=== PATIENT | female | born 1955 | race Caucasian/White ===

== ENCOUNTER 2018-12-28 10:56 | Emergency (ER) | payer MEDICAID, OTHER ==
[~2018-12-28] VITALS: Ht 170.2 cm; Wt 60.8 kg
[2018-12-28] MEDS ORDERED: NS IV 500 ML 500 ML IV SCH (11:15)
[2018-12-28 11:20] LABS: BILIRUBIN,URINE NEGATIVE (NEGATIVE); CLARITY,URINE CLEAR; COLOR,URINE YELLOW; GLUCOSE, URINE (UA) NEGATIVE (NEGATIVE); KETONES,URINE NEGATIVE (NEGATIVE); LEUKOCYTE ESTERASE ,URINE 3+ (NEGATIVE); NITRITE,URINE NEGATIVE (NEGATIVE); PH,URINE 5 (5-9); PROTEIN,URINE 2+ (NEGATIVE); UROBILINOGEN,URINE 1 MG/DL (NORMAL)
--- NOTE | 2018-12-28 11:28 | ED General ---
General Stated Complaint: FEET SWELLING;WEAKNESS;RECENT CHEMO;PAIN ALL OVER Source of Information: Patient, Family (daughter) Exam Limitations: No Limitations History of Present Illness Date Seen by Provider: Dec 28, 2018 Time Seen by Provider: 11:10 Initial Comments 63-year-old female who presents to the emergency room with complaints of bilateral feet swelling, weakness, malaise, generalized pain all over. She reports that this is been going on for the past month and a half after her chemotherapy administration. She is receiving chemotherapy for lung cancer. She reports that she is looking to establish care with [facility] but was instructed to come to the emergency room for evaluation. She is from [place] and this is where her her oncologist is. She has recently relocated to the [place] area is looking for primary care. She is alert and oriented on arrival to the emergency room. Timing/Duration: Other (2 months) Associated Systoms: Malaise, Weakness Allergies and Home Medications Allergies Coded Allergies: codeine (Unverified Adverse Reaction, Mild, n/v, 11/14/11) morphine (Unverified Adverse Reaction, Mild, n/v, 11/14/11) Home Medications Gabapentin 300 Mg Capsule, 300 MG PO BID Prescribed by: CHRISTOPHER CULLEN on 12/28/18 1331 Nitrofurantoin Monohyd/M-Cryst 100 Mg Capsule, 1 TAB PO BID Prescribed by: CHRISTOPHER CULLEN on 12/28/18 1317 Potassium Chloride 10 Meq Tablet.er, 10 MEQ PO DAILY Prescribed by: CHRISTOPHER CULLEN on 12/28/18 1331 Patient Home Medication List Home Medication List Reviewed: Yes Review of Systems Review of Systems Constitutional: see HPI; No chills, No fever; malaise, weakness Genitourinary: no symptoms reported Musculoskeletal: see HPI, muscle weakness All Other Systems Reviewed Negative Unless Noted: Yes Past Prnbdyy-Whpfsy-Hbkalm Hx Past Med/Social Hx: Reviewed Nursing Past Med/Soc Hx Family Medical History Reviewed Nursing Family Hx Physical Exam Vital Signs Vital Signs - First Documented 12/28/18 11:05 Temp 97.6 Pulse 105 Resp 29 B/P (MAP) 126/80 (95) Pulse Ox 96 O2 Delivery Room Air Capillary Refill : Height, Weight, BMI Height: '" Weight: lbs. oz. kg; BMI Method:Stated General Appearance: No Apparent Distress, WD/WN HEENT: PERRL/EOMI, TMs Normal, Normal ENT Inspection, Pharynx Normal Neck: Full Range of Motion, Normal Inspection, Non Tender, Supple Respiratory: Chest Non Tender, Lungs Clear, Normal Breath Sounds, No Accessory Muscle Use, No Respiratory Distress Cardiovascular: Regular Rate, Rhythm, No Edema, No Gallop, No JVD, No Murmur, Normal Peripheral Pulses Gastrointestinal: Normal Bowel Sounds, No Organomegaly, No Pulsatile Mass, Non Tender, Soft Extremity: Normal Capillary Refill Neurologic/Psychiatric: Alert, Oriented x3, Normal Mood/Affect Skin: Normal Color, Warm/Dry Progress/Results/Core Measures Suspected Sepsis SIRS Temperature: Pulse: Respiratory Rate: Laboratory Tests 12/28/18 11:24: White Blood Count 4.9 Blood Pressure / Mean: Laboratory Tests 12/28/18 11:24: Creatinine 0.73, Platelet Count 281, Total Bilirubin 0.4 Results/Orders Lab Results My Orders Medications Given in ED Vital Signs/I&O Capillary Refill : Departure Impression Primary Impression: Lung cancer Additional Impression: UTI (urinary tract infection) Disposition: 01 HOME, SELF-CARE Condition: Stable/Unchanged Departure-Patient Inst. Decision time for Depature: 12:38 Referrals: NO,LOCAL PHYSICIAN (PCP/Family) Primary Care Physician Patient Instructions: LOCAL PHYSICIAN LIST, Lung Cancer (DC), Urinary Tract Infections in Adults Add. Discharge Instructions: Take medications as directed. Follow-up with your primary care provider within 1 week for recheck. Keep your appointment that was scheduled with the cancer center. Return back to the emergency room for worsening symptoms or concerns as needed. Scripts Potassium Chloride (Potassium Chloride) 10 Meq Tablet.er 10 MEQ PO DAILY for 7 Days, #14 TAB Prov: CHRISTOPHER CULLEN 12/28/18 Gabapentin (Gabapentin) 300 Mg Capsule 300 MG PO BID for 7 Days, #14 CAP Prov: CHRISTOPHER CULLEN 12/28/18 Nitrofurantoin Monohyd/M-Cryst (Macrobid 100 mg Capsule) 100 Mg Capsule 1 TAB PO BID for 7 Days, #14 CAP Prov: CHRISTOPHER CULLEN 12/28/18 CHRISTOPHER CULLEN Dec 28, 2018 11:28
[2018-12-28 11:34] LABS: BASOPHILS % (AUTO) 0 % (0-10); EOSINOPHILS # (AUTO) 0.1 10^3/uL (0.0-0.3); EOSINOPHILS % (AUTO) 3 % (0-10); HEMATOCRIT 33 % (35-52); HEMOGLOBIN 11.3 G/DL (11.5-16.0); LYMPHOCYTES # (AUTO) 1.9 X 10^3 (1.0-4.0); LYMPHOCYTES % (AUTO) 40 % (12-44); MEAN CORPUSCULAR HEMOGLOBIN 30 PG (25-34); MEAN CORPUSCULAR HGB CONC 34 G/DL (32-36); MEAN CORPUSCULAR VOLUME 89 FL (80-99); MEAN PLATELET VOLUME 8.5 FL (7.4-10.4); MONOCYTES # (AUTO) 0.7 X 10^3 (0.0-1.0); MONOCYTES % (AUTO) 15 % (0-12); NEUTROPHILS # (AUTO) 2.1 X 10^3 (1.8-7.8); NEUTROPHILS % (AUTO) 43 % (42-75); PLATELET COUNT 281 10^3/uL (130-400); RED CELL DISTRIBUTION WIDTH 14.5 % (10.0-14.5); WHITE BLOOD COUNT 4.9 10^3/uL (4.3-11.0)
[2018-12-28 11:46] LABS: BACTERIA,URINE FEW /HPF; RBC,URINE 0-2 /HPF; SQUAMOUS EPITHELIAL CELL,UR >50 /HPF; YEAST,URINE FEW /HPF
[2018-12-28 11:54] LABS: ALANINE AMINOTRANSFERASE 15 U/L (0-55); ALBUMIN 3.3 GM/DL (3.2-4.5); ALKALINE PHOSPHATASE 117 U/L (40-136); AMYLASE 58 U/L (25-125); BILIRUBIN,TOTAL 0.4 MG/DL (0.1-1.0); BUN/CREATININE RATIO 7; CALCIUM 9.5 MG/DL (8.5-10.1); CARBON DIOXIDE 25 MMOL/L (21-32); CHLORIDE 96 MMOL/L (98-107); CREATININE SERUM 0.73 MG/DL (0.60-1.30); GFR ESTIMATED > 60; GLUCOSE 157 MG/DL (70-105); LIPASE 34 U/L (8-78); POTASSIUM 3.1 MMOL/L (3.6-5.0); SODIUM 131 MMOL/L (135-145); TOTAL PROTEIN 6.9 GM/DL (6.4-8.2)
[2018-12-28] MEDS ORDERED: OXYC1TAB16 (11:56)
[2018-12-28] MEDS ORDERED: GABA-486 (11:56)
[2018-12-28] MEDS ORDERED: PROM12.59 (11:56)
--- NOTE | 2018-12-28 12:11 | Diagnostic Imaging Report ---
INDICATION: Weakness and difficulty eating. Lung cancer. FINDINGS: Heart size is normal. There is a 6 cm mass in the posterior aspect of left lower lobe. There is no pleural effusion or pneumothorax. Mediastinum is unremarkable. Tvucob-O-Exix catheter overlies right hemithorax and has its tip in the superior vena cava. IMPRESSION: 6 cm mass in the left lower lobe. Air-trapping compatible with COPD. Dictated by: Dictated on workstation # [id number]
[2018-12-28] MEDS ORDERED: NS IV 1000 ML 1,000 ML IV SCH (12:15)
[2018-12-28] MEDS ORDERED: KCL 20 MEQ TAB (K-DUR) PO ONE (12:15)
[2018-12-28] MEDS ORDERED: NITR-65 PO (13:17)
[2018-12-28] MEDS ORDERED: POTA10TA10 PO (13:31)
[2018-12-28] MEDS ORDERED: GABA-488 PO (13:31)
[2018-12-28 13:52] VITALS: BP 123/78
== END 2018-12-28 13:52 | disposition home or self-care (01) ==
LOC: EDUNIT# 10:56 → ER 10:57
DX: C34.90 Malignant neoplasm of unspecified part of unspecified bronchus or lung (principal); N39.0 Urinary tract infection, site not specified; Z88.5 Allergy status to narcotic agent
CPT/HCPCS: 36415; 71046; 80053; 81000; 82150; 83690; 83880; 85025; 87077; 87088; 87186; 96360; 96361

== ENCOUNTER 2019-01-01 14:05 | Inpatient (IN) | payer OTHER ==
[~2019-01-01] VITALS: Ht 170.2 cm; Wt 63.6 kg
[~2019-01-01 14:05] MED LIST: GABA-486; GABA-488 PO; NITR-65 PO; OXYC1TAB16; POTA10TA10 PO; PROM12.59
[2019-01-01 14:45] LABS: BASOPHILS % (AUTO) 0 % (0-10); EOSINOPHILS # (AUTO) 0.1 10^3/uL (0.0-0.3); EOSINOPHILS % (AUTO) 2 % (0-10); HEMATOCRIT 27 % (35-52); HEMOGLOBIN 9.2 G/DL (11.5-16.0); LYMPHOCYTES # (AUTO) 1.7 X 10^3 (1.0-4.0); LYMPHOCYTES % (AUTO) 28 % (12-44); MEAN CORPUSCULAR HEMOGLOBIN 30 PG (25-34); MEAN CORPUSCULAR HGB CONC 34 G/DL (32-36); MEAN CORPUSCULAR VOLUME 87 FL (80-99); MEAN PLATELET VOLUME 8.4 FL (7.4-10.4); MONOCYTES # (AUTO) 0.9 X 10^3 (0.0-1.0); MONOCYTES % (AUTO) 15 % (0-12); NEUTROPHILS # (AUTO) 3.4 X 10^3 (1.8-7.8); NEUTROPHILS % (AUTO) 55 % (42-75); PLATELET COUNT 251 10^3/uL (130-400); RED CELL DISTRIBUTION WIDTH 14.4 % (10.0-14.5); WHITE BLOOD COUNT 6.1 10^3/uL (4.3-11.0)
[2019-01-01] MEDS ORDERED: NS IV 1000 ML 1,000 ML IV ONE (15:00)
[2019-01-01] MEDS ORDERED: ACETAMINOPHEN 325 MG TABLET PO ONE (15:00)
[2019-01-01] MEDS ORDERED: fentaNYL INJECTION 100 MCG/2 ML AMP IVP ONE (15:00)
[2019-01-01 15:15] LABS: INR 1.1 (0.8-1.4)
[2019-01-01 15:16] LABS: ALANINE AMINOTRANSFERASE 8 U/L (0-55); ALBUMIN 2.7 GM/DL (3.2-4.5); ALKALINE PHOSPHATASE 80 U/L (40-136); BILIRUBIN,TOTAL 0.6 MG/DL (0.1-1.0); BUN/CREATININE RATIO 10; CALCIUM 8.4 MG/DL (8.5-10.1); CARBON DIOXIDE 22 MMOL/L (21-32); CHLORIDE 94 MMOL/L (98-107); CREATINE KINASE 35 U/L (29-168); CREATININE SERUM 0.63 MG/DL (0.60-1.30); GFR ESTIMATED > 60; GLUCOSE 94 MG/DL (70-105); POTASSIUM 3.4 MMOL/L (3.6-5.0); SODIUM 126 MMOL/L (135-145); TOTAL PROTEIN 5.8 GM/DL (6.4-8.2)
--- NOTE | 2019-01-01 15:39 | Diagnostic Imaging Report ---
EXAM: CHEST 1 VIEW, AP/PA ONLY. INDICATION: Lung cancer. Increased pain. COMPARISON: Chest radiograph 12/28/2018. FINDINGS: Normal heart size and central pulmonary vascularity. Right IJ tunnel port CVC, tip mid SVC. Stable mass in the left hilum. No new focal pulmonary opacity. No pleural effusion or pneumothorax. No acute osseous findings. Postoperative changes in the left shoulder are partially visualized. IMPRESSION: 1. Stable mass in the left hilum. 2. No acute cardiopulmonary findings. Dictated by: Dictated on workstation # [id number]
[2019-01-01] MEDS ORDERED: PIPERACILLIN/TAZOBACTAM (BULK) 4.5 GM in NS (IVPB) 100 ML IV ONE (16:15)
[2019-01-01 16:30] LABS: BILIRUBIN,URINE NEGATIVE (NEGATIVE); CLARITY,URINE CLEAR; COLOR,URINE YELLOW; GLUCOSE, URINE (UA) NEGATIVE (NEGATIVE); KETONES,URINE 3+ (NEGATIVE); LEUKOCYTE ESTERASE ,URINE 3+ (NEGATIVE); NITRITE,URINE NEGATIVE (NEGATIVE); PH,URINE 6 (5-9); PROTEIN,URINE NEGATIVE (NEGATIVE); UROBILINOGEN,URINE NORMAL (NORMAL)
[2019-01-01 16:36] LABS: BACTERIA,URINE NEGATIVE /HPF; RBC,URINE RARE /HPF; SQUAMOUS EPITHELIAL CELL,UR 0-2 /HPF
[2019-01-01] MEDS ORDERED: oxyCODONE/APAP 5/325MG (PERCOCET 5) TABLET PO ONE (17:45)
--- NOTE | 2019-01-01 18:39 | ED General ---
General Chief Complaint: General Problems/Pain Stated Complaint: FEVER,UTI,HYPONATREMIA Nursing Triage Note: PT RM 6 BY EMS WITH COMPLAINT OF WEAKNESS, PAIN/SWELLING IN HANDS AND FEET, AND NOT EATING. PT WAS SEEN IN THIS ER ON Wednesday12/28/18. PT STATES THAT THE PAIN AND SWELLING IN HANDS STARTED AFTER BEING SEEN HERE ON WEDNESDAY. BILATERAL HANDS ARE HOT, SWOLLEN, AND RED. Nursing Sepsis Screen: No Definite Risk Source of Information: Patient, Family, Old Records Exam Limitations: No Limitations History of Present Illness Date Seen by Provider: Jan 01, 2019 Time Seen by Provider: 14:21 Initial Comments This 63-year-old woman with lung cancer presents to the emergency room via EMS with swelling and erythema of her hands and feet, fever up to 100.5 as noted by EMS, and generalized aches. She has been treated with chemotherapy in the past. Her oncologist was Dr. Barbosa at [facility] in the [facility]. She has an establish care appointment with Dr. Duncan at the [facility] in the near future. Her primary care provider is Elida Moran at [facility]. She was seen in this ER on December 28 and noted to have urinary tract infection. She was started on Macrobid. Culture was reviewed and showed staph epidermidis sensitive to Macrobid. She has declined despite starting appro priate treatment. Allergies and Home Medications Allergies Coded Allergies: codeine (Unverified Adverse Reaction, Mild, n/v, 11/14/11) morphine (Unverified Adverse Reaction, Mild, n/v, 11/14/11) Home Medications Gabapentin 300 Mg Capsule, 300 MG PO BID Prescribed by: CHRISTOPHER CULLEN on 12/28/18 1331 Nitrofurantoin Monohyd/M-Cryst 100 Mg Capsule, 1 TAB PO BID Prescribed by: CHRISTOPHER CULLEN on 12/28/18 1317 Potassium Chloride 10 Meq Tablet.er, 10 MEQ PO DAILY Prescribed by: CHRISTOPHER CULLEN on 12/28/18 1331 Patient Home Medication List Home Medication List Reviewed: Yes Review of Systems Review of Systems Constitutional: see HPI EENTM: no symptoms reported Respiratory: see HPI Cardiovascular: no symptoms reported Gastrointestinal: nausea Genitourinary: see HPI : No Musculoskeletal: see HPI Skin: see HPI Psychiatric/Neurological: No Symptoms Reported Hematologic/Lymphatic: See HPI Immunological/Allergic: see HPI Past Dggcpak-Byvfdn-Ddsmra Hx Past Med/Social Hx: Reviewed Nursing Past Med/Soc Hx Patient Social History Alcohol Use: Denies Use Recreational Drug Use: No Smoking Status: Current Everyday Smoker Type Used: Cigarettes Recent Foreign Travel: No Contact w/Someone Who Travel: No Recent Infectious Disease Expo: No Recent Hopitalizations: No Immunizations Up To Date Tetanus Booster (TDap): Unknown Seasonal Allergies Seasonal Allergies: No Past Medical History Surgeries: Yes Hysterectomy, Orthopedic Respiratory: Yes COPD Cardiac: No Neurological: No : No AUTHORIZATION NURSE History: Hysterectomy Genitourinary: No Gastrointestinal: No Musculoskeletal: No Endocrine: No HEENT: No Cancer: Yes Lung What Type of Treatment Did You: Chemotherapy Psychosocial: No Integumentary: No Physical Exam-Suspected Sepsis Physical Exam Vital Signs Vital Signs - First Documented 01/01/19 14:09 Temp 100.3 Pulse 105 Resp 21 B/P (MAP) 109/73 (85) Pulse Ox 96 O2 Delivery Room Air Capillary Refill : Less Than 3 Seconds Blood Pressure Mean: 85 Height, Weight, BMI Height: 5'7.00" Weight: 134lbs. oz. 60.915467gs; 25.06 BMI Method:Stated General Appearance: WD/WN, Mild Distress, Other (Ill appearing) HEENT: PERRL/EOMI, Normal ENT Inspection, Pharynx Normal, Other (hair loss) Neck: Normal Inspection Respiratory: Lungs Clear, No Accessory Muscle Use, No Respiratory Distress, Decreased Breath Sounds Cardiovascular: Regular Rate, Rhythm, No Edema, No Murmur Gastrointestinal: Normal Bowel Sounds, Soft, Tenderness (Generalized) Extremity: Normal Capillary Refill, Normal Inspection, Other (Wound to moderate edema of the hands and feet) Neurologic/Psychiatric: Alert, Oriented x3, No Motor/Sensory Deficits, Normal Mood/Affect, observation assistant II-XII Norm as Tested Skin: normal color, warm/dry, other (Mild erythema of the hands and feet) Focused Exam Lactate Level 01/01/19 14:37: Lactic Acid Level 0.69 Lactic Acid Level Laboratory Tests Test 01/01/19 14:37 Lactic Acid Level 0.69 MMOL/L (0.50-2.00) Progress/Results/Core Measures Suspected Sepsis Recent Fever Within 48 Hours: No Infection Criteria Present: None New/Unexplained Altered Menta: No Sepsis Screen: No Definite Risk SIRS Temperature:100.3 Pulse: 105 Respiratory Rate: 21 Laboratory Tests 01/01/19 14:37: White Blood Count 6.1 Blood Pressure 109 /73 Mean: 85 01/01/19 14:37: Lactic Acid Level 0.69 Laboratory Tests 01/01/19 14:37: Creatinine 0.63, INR Comment 1.1, Platelet Count 251, Total Bilirubin 0.6 Results/Orders Lab Results Laboratory Tests Test 01/01/19 14:37 01/01/19 16:22 Range/Units White Blood Count 6.1 4.3-11.0 10^3/uL Red Blood Count 3.10 L 4.35-5.85 10^6/uL Hemoglobin 9.2 L 11.5-16.0 G/DL Hematocrit 27 L 35-52 % Mean Corpuscular Volume 87 80-99 FL Mean Corpuscular Hemoglobin 30 25-34 PG Mean Corpuscular Hemoglobin Concent 34 32-36 G/DL Red Cell Distribution Width 14.4 10.0-14.5 % Platelet Count 251 130-400 10^3/uL Mean Platelet Volume 8.4 7.4-10.4 FL Neutrophils (%) (Auto) 55 42-75 % Lymphocytes (%) (Auto) 28 12-44 % Monocytes (%) (Auto) 15 H 0-12 % Eosinophils (%) (Auto) 2 0-10 % Basophils (%) (Auto) 0 0-10 % Neutrophils # (Auto) 3.4 1.8-7.8 X 10^3 Lymphocytes # (Auto) 1.7 1.0-4.0 X 10^3 Monocytes # (Auto) 0.9 0.0-1.0 X 10^3 Eosinophils # (Auto) 0.1 0.0-0.3 10^3/uL Basophils # (Auto) 0.0 0.0-0.1 10^3/uL Prothrombin Time 15.0 H 12.2-14.7 SEC INR Comment 1.1 0.8-1.4 Activated Partial Thromboplast Time 51 H 24-35 SEC Sodium Level 126 L 135-145 MMOL/L Potassium Level 3.4 L 3.6-5.0 MMOL/L Chloride Level 94 L 98-107 MMOL/L Carbon Dioxide Level 22 21-32 MMOL/L Anion Gap 10 5-14 MMOL/L Blood Urea Nitrogen 6 L 7-18 MG/DL Creatinine 0.63 0.60-1.30 MG/DL Estimat Glomerular Filtration Rate > 60 BUN/Creatinine Ratio 10 Glucose Level 94 70-105 MG/DL Lactic Acid Level 0.69 0.50-2.00 MMOL/L Calcium Level 8.4 L 8.5-10.1 MG/DL Corrected Calcium 9.4 8.5-10.1 MG/DL Total Bilirubin 0.6 0.1-1.0 MG/DL Aspartate Amino Transf (AST/SGOT) 18 5-34 U/L Alanine Aminotransferase (ALT/SGPT) 8 0-55 U/L Alkaline Phosphatase 80 40-136 U/L Total Creatine Kinase 35 29-168 U/L C-Reactive Protein High Sensitivity 13.49 H 0.00-0.50 MG/DL B-Type Natriuretic Peptide < 10.0 <100.0 PG/ML Total Protein 5.8 L 6.4-8.2 GM/DL Albumin 2.7 L 3.2-4.5 GM/DL Urine Color YELLOW Urine Clarity CLEAR Urine pH 6 5-9 Urine Specific [place] 1.015 L 1.016-1.022 Urine Protein NEGATIVE NEGATIVE Urine Glucose (UA) NEGATIVE NEGATIVE Urine Ketones 3+ H NEGATIVE Urine Nitrite NEGATIVE NEGATIVE Urine Bilirubin NEGATIVE NEGATIVE Urine Urobilinogen NORMAL NORMAL MG/DL Urine Leukocyte Esterase 3+ H NEGATIVE Urine RBC (Auto) NEGATIVE NEGATIVE Urine RBC RARE /HPF Urine WBC 10-25 H /HPF Urine Squamous Epithelial Cells 0-2 /HPF Urine Crystals NONE /LPF Urine Bacteria NEGATIVE /HPF Urine Casts NONE /LPF Urine Mucus NEGATIVE /LPF Urine Culture Indicated CULTURE PENDING My Orders Orders - JASBIR GUERRERO MD Cbc With Automated Diff (01/01/19 14:21) Comprehensive Metabolic Panel (01/01/19 14:21) Creatine Kinase (01/01/19 14:21) Hs C Reactive Protein (01/01/19 14:21) Ed Iv/Invasive Line Start (01/01/19 14:21) BNP (01/01/19 14:21) Blood Culture (01/01/19 15:00) Sputum Culture (01/01/19 15:00) Urinalysis (01/01/19 15:00) Urine Culture (01/01/19 15:00) Protime With Inr (01/01/19 15:00) Partial Thromboplastin Time (01/01/19 15:00) Chest 1 View, Ap/Pa Only (01/01/19 15:00) Vital Signs Adult Sepsis Patie Q15M (01/01/19 15:00) O2 (01/01/19 15:00) Remove Rings In Anticipation O (01/01/19 15:00) Lactic Acid Analyzer (01/01/19 15:00) Ns Iv 1000 Ml (Sodium Chloride 0.9%) (01/01/19 15:00) Acetaminophen Tablet/Caplet (Tylenol T (01/01/19 15:00) Fentanyl Injection (Sublimaze Injection (01/01/19 15:00) Piperacillin/Tazobactam (Bulk) (Zosyn In (01/01/19 16:15) Oxycodone/Apap 5/325mg Tablet (Percocet (01/01/19 17:45) Medications Given in ED Current Medications Medications Dose Ordered Sig/Omari Route Start Time Stop Time Status Last Admin Dose Admin Acetaminophen 650 mg ONCE ONCE PO 01/01/19 15:00 01/01/19 15:02 DC 01/01/19 15:18 650 MG Fentanyl Citrate 25 mcg ONCE ONCE IVP 01/01/19 15:00 01/01/19 15:02 DC 01/01/19 15:18 25 MCG Oxycodone/ Acetaminophen 1 tab ONCE ONCE PO 01/01/19 17:45 01/01/19 17:46 DC 01/01/19 17:50 1 TAB Piperacillin Sod/ Tazobactam Sod 4.5 gm/Sodium Chloride 120 ml @ 240 mls/hr ONCE ONCE IV 01/01/19 16:15 01/01/19 16:44 DC 01/01/19 16:50 240 MLS/HR Sodium Chloride 1,000 ml @ 0 mls/hr Q0M ONCE IV 01/01/19 15:00 01/01/19 15:02 DC 01/01/19 15:18 1,000 MLS/HR Vital Signs/I&O 01/01/19 14:09 Temp 100.3 Pulse 105 Resp 21 B/P (MAP) 109/73 (85) Pulse Ox 96 O2 Delivery Room Air Capillary Refill : Less Than 3 Seconds Blood Pressure Mean: 85 Progress Note : Progress Note Patient was seen and examined shortly after arrival. Septic workup was pursued. Patient was not found to meet sepsis criteria. Urinary tract infection is the suspected source of fever. She was treated with broad-spectrum antibiotics with Zosyn and vancomycin. Blood cultures and lactic acid were obtained before starting antibiotics. A liter of IV normal saline was infused. Patient was found to be hyponatremic as well. Fentanyl and Percocet were used for pain. Zofran was given for nausea. Tylenol was given for fever. Diagnostic Imaging Diagonstic Imaging: Xray Plain Films/CT/US/NM/MRI: chest Comments Chest x-ray viewed by me and report reviewed. See report below: NAME: CHRISTIE CARR [facility] REC#: [id number] PT STATUS: REG ER : 1955 PHYSICIAN: JASBIR GUERRERO MD ADMIT DATE: 01/01/19/ER Signed Date of Exam: 01/01/19 CHEST 1 VIEW, AP/PA ONLY EXAM: CHEST 1 VIEW, AP/PA ONLY. INDICATION: Lung cancer. Increased pain. COMPARISON: Chest radiograph 12/28/2018. FINDINGS: Normal heart size and central pulmonary vascularity. Right IJ tunnel port CVC, tip mid SVC. Stable mass in the left hilum. No new focal pulmonary opacity. No pleural effusion or pneumothorax. No acute osseous findings. Postoperative changes in the left shoulder are partially visualized. IMPRESSION: 1. Stable mass in the left hilum. 2. No acute cardiopulmonary findings. Dictated by: Dictated on workstation # [id number] Dict: 01/01/19 1530 Trans: 01/01/19 1544 Interpreted by: HANNAH BETH MD Electronically signed by: HANNAH BETH MD 01/01/19 1544 Departure Communication (Admissions) Time/Spoke to Admitting Phy: 17:30 Dr. Salcedo Time/Spoke to Consulting Phy: 17:45 Dr. Smalls Impression Primary Impression: Fever Qualified Codes: R50.9 - Fever, unspecified Additional Impressions: Lung cancer Qualified Codes: C34.02 - Malignant neoplasm of left main bronchus Hyponatremia Nausea Disposition: ADMITTED INPATIENT Condition: Improved Admissions Decision to Admit Reason: Admit from ER (General) Decision to Admit/Date: Jan 01, 2019 Time/Decision to Admit Time: 16:00 Departure-Patient Inst. Referrals: NO,LOCAL PHYSICIAN (PCP) Primary Care Physician Copy Copies To 1: SHERITA CASTANO JOSHUA T MD Jan 01, 2019 18:38
--- NOTE | 2019-01-01 18:40 | NUR ---
CHRISTIE CARR admitted to room 408-1, with an admitting diagnosis of FEVER, URINARY TRACT INFECTION, LUNG CANCER AND HYPONATREMIA, on 01/01/19 from ED via STRETCHER, accompanied by ED STAFF AND FAMILY. CHRISTIE CARR introduced to surroundings, call light, bed controls, phone, TV, temperature control, lights, meal times, smoking policy, visitor policy, side rail policy, bathrooms and showers. Patient Rights given to patient in the handbook. CHRISTIE CARR verbalizes understanding that [facility] is not responsible for the loss or damage to any personal effects or valuables that are kept in the patients posession during their hospitalization. The following Patient Care Plans were discussed with the PATIENT: Discharge Planning, URINARY TRACT INFECTION, LUNG CANCER and KNOWLEDGE DEFICIT. CHRISTIE CARR verbalizes understanding of Interdisciplinary Patient Education. Patient and/or family were informed about the Rapid Response Team and its purpose.
[2019-01-01 18:46] VITALS: BP 80/48
[2019-01-01] MEDS ORDERED: MELATONIN 3 MG TABLET PO PRN (19:30)
[2019-01-01] MEDS ORDERED: IBUPROFEN TABLET 200 MG TAB PO PRN (19:30)
[2019-01-01] MEDS ORDERED: ONDANSETRON 4 MG/2 ML (SDV) Z0FRAN IVP PRN (19:30)
[2019-01-01] MEDS ORDERED: diphenhydrAMINE 25 MG TAB (BENADRYL) PO PRN (19:30)
[2019-01-01] MEDS ORDERED: LOPERAMIDE 2 MG (IMODIUM) CAP PO PRN (19:30)
[2019-01-01] MEDS ORDERED: ALPRAZolam 0.25 MG (XANAX) TAB PO PRN (19:30)
[2019-01-01] MEDS ORDERED: CALCIUM CARBONATE 500 MG (TUMS) TAB.CHEW PO PRN (19:30)
[2019-01-01] MEDS ORDERED: ACETAMINOPHEN 500 MG TAB (TYLENOL) PO PRN (19:30)
[2019-01-01] MEDS ORDERED: DOCUSATE SODIUM 100 MG (COLACE) CAP PO PRN (19:30)
[2019-01-01] MEDS ORDERED: NS IV 1000 ML 1,000 ML ONE (19:57)
[2019-01-01 20:00] VITALS: BP 90/55
[2019-01-01] MEDS ORDERED: VANCOMYCIN 1 GM/NS 250 ML IVPB IV ONE ×2 (20:30)
[2019-01-01] MEDS ORDERED: PIPERACILLIN/TAZO 4.5 GM VIAL (ZOSYN) IV ONE (20:42)
[2019-01-01] MEDS: NS IV 1000 ML 1,000 ML IV SCH (20:51)
[2019-01-01] MEDS: SENNA W/DOCUSATE (SENOKOT S) TABLET PO SCH (21:00)
[2019-01-01] MEDS: fentaNYL INJECTION 100 MCG/2 ML AMP IVP PRN (21:00)
[2019-01-01] MEDS: GABAPENTIN 300 MG (NEURONTIN) CAP PO SCH (21:23)
[2019-01-01] MEDS ORDERED: NS (IVPB) 100 ML ONE (22:52)
[2019-01-01 23:39] VITALS: BP 90/45
[2019-01-01] MEDS: PIPERACILLIN/TAZO 4.5 GM/NS 100 ML IV SCH ×2 (23:45)
[2019-01-02] MEDS: oxyCODONE/APAP 5/325MG (PERCOCET 5) TABLET PO PRN ×2 (03:58→23:14)
[2019-01-02 04:00] VITALS: BP 124/57
[2019-01-02] MEDS: NS IV 1000 ML 1,000 ML IV SCH ×3 (05:14→22:53)
[2019-01-02] MEDS ORDERED: NS (IVPB) 100 ML ONE (06:03)
[2019-01-02] MEDS ORDERED: PIPERACILLIN/TAZO 4.5 GM VIAL (ZOSYN) IV ONE (06:04)
[2019-01-02] MEDS: PIPERACILLIN/TAZO 4.5 GM/NS 100 ML IV SCH ×6 (06:46→22:51)
[2019-01-02 07:29] LABS: BASOPHILS % (AUTO) 0 % (0-10); EOSINOPHILS # (AUTO) 0.2 10^3/uL (0.0-0.3); EOSINOPHILS % (AUTO) 3 % (0-10); HEMATOCRIT 25 % (35-52); HEMOGLOBIN 8.6 G/DL (11.5-16.0); LYMPHOCYTES # (AUTO) 1.2 X 10^3 (1.0-4.0); LYMPHOCYTES % (AUTO) 24 % (12-44); MEAN CORPUSCULAR HEMOGLOBIN 30 PG (25-34); MEAN CORPUSCULAR HGB CONC 34 G/DL (32-36); MEAN CORPUSCULAR VOLUME 89 FL (80-99); MEAN PLATELET VOLUME 8.6 FL (7.4-10.4); MONOCYTES # (AUTO) 0.6 X 10^3 (0.0-1.0); MONOCYTES % (AUTO) 13 % (0-12); NEUTROPHILS # (AUTO) 2.9 X 10^3 (1.8-7.8); NEUTROPHILS % (AUTO) 60 % (42-75); PLATELET COUNT 267 10^3/uL (130-400); RED CELL DISTRIBUTION WIDTH 14.5 % (10.0-14.5); WHITE BLOOD COUNT 4.9 10^3/uL (4.3-11.0)
--- NOTE | 2019-01-02 07:32 | NUR ---
PHARMACY TO DOSE VANCOMYCIN: IBW 61.6 KG, SCr 1, EST CrCl 55 NO LOADING DOSE: RECEIVED 1 GM ON 01/01/19 @ 20:30 MAIN DOSE: 1 GM IV Q 24 HRS VANCOMYCIN TROUGH DUE 01/04/19 @ 11:00 IF TROUGH GREATER THAN 20 HOLD 01/04/19 12:00 DOSE.
[2019-01-02 07:59] LABS: ALANINE AMINOTRANSFERASE 9 U/L (0-55); ALBUMIN 2.5 GM/DL (3.2-4.5); ALKALINE PHOSPHATASE 76 U/L (40-136); BILIRUBIN,TOTAL 0.5 MG/DL (0.1-1.0); BUN/CREATININE RATIO 9; CALCIUM 8.3 MG/DL (8.5-10.1); CARBON DIOXIDE 19 MMOL/L (21-32); CHLORIDE 100 MMOL/L (98-107); CREATININE SERUM 0.58 MG/DL (0.60-1.30); GFR ESTIMATED > 60; POTASSIUM 3.5 MMOL/L (3.6-5.0); SODIUM 128 MMOL/L (135-145); TOTAL PROTEIN 5.3 GM/DL (6.4-8.2)
[2019-01-02 08:00] VITALS: BP 118/72
[2019-01-02] MEDS: SENNA W/DOCUSATE (SENOKOT S) TABLET PO SCH ×2 (08:02→21:10)
[2019-01-02] MEDS: GABAPENTIN 300 MG (NEURONTIN) CAP PO SCH ×2 (08:02→21:10)
[2019-01-02] MEDS: fentaNYL INJECTION 100 MCG/2 ML AMP IVP PRN (08:02)
[2019-01-02] MEDS: HYDROcodone/APAP 5 MG/325 MG (LORTAB) TAB PO PRN ×4 (08:03→21:10)
[2019-01-02 08:09] LABS: GLUCOSE 51 MG/DL (70-105)
--- NOTE | 2019-01-02 08:17 | NUR ---
CRITICAL BLOOD SUGAR OF 51. PATIENT INFORMED AND GIVEN ORANGE JUICE, HER FRUIT FROM THE [place], CRACKERS AND PEANUT BUTTER. HER BREAKFAST HAS ALSO BEEN DELIVERED TO THE ROOM. MESSAGE LEFT ON DR AYALA'S PHONE TO NOTIFY HER.
--- NOTE | 2019-01-02 08:40 | NUR ---
ACCUCHECK DONE BLOOD GLUCOSE IS NOW 86. WILL CONTINUE TO MONITOR
[2019-01-02] MEDS ORDERED: PROM25TA14 PO (09:12)
--- NOTE | 2019-01-02 09:20 | NUR ---
PATIENT HAS PRESCRIPTION BOTTLES IN THE ROOM WITH HER. SHE STATES SHE DOES NOT REALLY KNOW WHAT SHE IS TAKING. GENTLEMAN IN THE ROOM STATES THAT IS ALL, SHE USED TO HAVE PAIN MEDICATION BUT DOES NOT ANYMORE. SHE HAS A BOTTLE OF KEFLEX FROM THE END OF NOVEMBER BUT STATES SHE IS NOT CURRENTLY TAKING IT, IT HAS 1 LEFT IN BOTTLE. SHE HAS THE THREE PRESCRIPTIONS PRESCRIBED RECENTLY BY THE ED WELL PROMETHAZINE NEEDED. [facility] FILLED HYDROCODONE 5-325MG #30 Q8H PRN 6--19 HOWEVER IT HAS NOT BEEN PICKED UP YET.
--- NOTE | 2019-01-02 11:43 | History & Physicial (CHS) ---
HPI History of Present Illness: 63 yo F with lung cancer that presented to ER with pain in her feet and hands that started 3 days prior to presentation. States that she has felt off and not like herself for a couple weeks. States that she is currently in treatment for her lung Ca and her last treatment was 6 weeks ago. Denies any fever or chills. No recent sick contacts. States that her mouth and throat hurt as well and it is hard for her to swallow. Source: patient Exam Limitations: no limitations Date seen by provider: Jan 02, 2019 Time Seen by Provider: 10:00 Attending Physician Shannan Kaba MD PCP No,Local Physician Consult Date of Admission Jan 01, 2019 at 18:16 Home Medications Home Medications Reviewed patient Home Medication Reconciliation performed by pharmacy medication reconciliations oncology technician and/or nursing. Patients Allergies have been reviewed. Allergies Coded Allergies: codeine (Unverified Adverse Reaction, Mild, n/v, 11/14/11) morphine (Unverified Adverse Reaction, Mild, n/v, 11/14/11) IRP-Ixbgqp-Spbobu Hx Patient Social History Alcohol Use: Denies Use Recreational Drug Use: No Smoking Status: Current Everyday Smoker Type Used: Cigarettes Recent Foreign Travel: No Contact w/other who traveled: No Recent Hopitalizations: No Recent Infectious Disease Expo: No Physical Abuse Screen: No Sexual Abuse: No Immunizations Up To Date Tetanus Booster (TDap): Unknown Past Medical History Lung Cancer: In treatment Review of Systems (CHC) Constitutional: chills, fever, malaise EENTM: throat pain; No nose congestion, No nose pain Respiratory: no symptoms reported; No cough, No dyspnea on exertion Cardiovascular: no symptoms reported; No chest pain, No palpitations Gastrointestinal: no symptoms reported; No abdominal pain, No constipation, No diarrhea, No nausea, No vomiting Genitourinary: No dysuria; frequency; No hematuria : No Musculoskeletal: other (Hand and foot pain) Psychiatric/Neurological: No Symptoms Reported Reviewed Test Results Reviewed Test Results Lab Laboratory Tests Test 01/01/19 14:37 01/01/19 16:22 01/02/19 06:45 01/02/19 08:40 Range/Units White Blood Count 6.1 4.9 4.3-11.0 10^3/uL Red Blood Count 3.10 L 2.85 L 4.35-5.85 10^6/uL Hemoglobin 9.2 L 8.6 L 11.5-16.0 G/DL Hematocrit 27 L 25 L 35-52 % Mean Corpuscular Volume 87 89 80-99 FL Mean Corpuscular Hemoglobin 30 30 25-34 PG Mean Corpuscular Hemoglobin Concent 34 34 32-36 G/DL Red Cell Distribution Width 14.4 14.5 10.0-14.5 % Platelet Count 251 267 130-400 10^3/uL Mean Platelet Volume 8.4 8.6 7.4-10.4 FL Neutrophils (%) (Auto) 55 60 42-75 % Lymphocytes (%) (Auto) 28 24 12-44 % Monocytes (%) (Auto) 15 H 13 H 0-12 % Eosinophils (%) (Auto) 2 3 0-10 % Basophils (%) (Auto) 0 0 0-10 % Neutrophils # (Auto) 3.4 2.9 1.8-7.8 X 10^3 Lymphocytes # (Auto) 1.7 1.2 1.0-4.0 X 10^3 Monocytes # (Auto) 0.9 0.6 0.0-1.0 X 10^3 Eosinophils # (Auto) 0.1 0.2 0.0-0.3 10^3/uL Basophils # (Auto) 0.0 0.0 0.0-0.1 10^3/uL Prothrombin Time 15.0 H 12.2-14.7 SEC INR Comment 1.1 0.8-1.4 Activated Partial Thromboplast Time 51 H 24-35 SEC Sodium Level 126 L 128 L 135-145 MMOL/L Potassium Level 3.4 L 3.5 L 3.6-5.0 MMOL/L Chloride Level 94 L 100 98-107 MMOL/L Carbon Dioxide Level 22 19 L 21-32 MMOL/L Anion Gap 10 9 5-14 MMOL/L Blood Urea Nitrogen 6 L 5 L 7-18 MG/DL Creatinine 0.63 0.58 L 0.60-1.30 MG/DL Estimat Glomerular Filtration Rate > 60 > 60 BUN/Creatinine Ratio 10 9 Glucose Level 94 51 *L 70-105 MG/DL Lactic Acid Level 0.69 0.50-2.00 MMOL/L Calcium Level 8.4 L 8.3 L 8.5-10.1 MG/DL Corrected Calcium 9.4 9.5 8.5-10.1 MG/DL Total Bilirubin 0.6 0.5 0.1-1.0 MG/DL Aspartate Amino Transf (AST/SGOT) 18 18 5-34 U/L Alanine Aminotransferase (ALT/SGPT) 8 9 0-55 U/L Alkaline Phosphatase 80 76 40-136 U/L Total Creatine Kinase 35 29-168 U/L C-Reactive Protein High Sensitivity 13.49 H 0.00-0.50 MG/DL B-Type Natriuretic Peptide < 10.0 <100.0 PG/ML Total Protein 5.8 L 5.3 L 6.4-8.2 GM/DL Albumin 2.7 L 2.5 L 3.2-4.5 GM/DL Urine Color YELLOW Urine Clarity CLEAR Urine pH 6 5-9 Urine Specific [place] 1.015 L 1.016-1.022 Urine Protein NEGATIVE NEGATIVE Urine Glucose (UA) NEGATIVE NEGATIVE Urine Ketones 3+ H NEGATIVE Urine Nitrite NEGATIVE NEGATIVE Urine Bilirubin NEGATIVE NEGATIVE Urine Urobilinogen NORMAL NORMAL MG/DL Urine Leukocyte Esterase 3+ H NEGATIVE Urine RBC (Auto) NEGATIVE NEGATIVE Urine RBC RARE /HPF Urine WBC 10-25 H /HPF Urine Squamous Epithelial Cells 0-2 /HPF Urine Crystals NONE /LPF Urine Bacteria NEGATIVE /HPF Urine Casts NONE /LPF Urine Mucus NEGATIVE /LPF Urine Culture Indicated CULTURE PENDING Glucometer 86 70-110 MG/DL Physical Exam-(CHC) Physical Exam Vital Signs VS - Last 72 Hours, by Label 01/01/19 01/01/19 01/01/19 01/01/19 14:09 18:33 18:46 20:00 Temp 100.3 97.4 97.6 Pulse 105 87 88 85 Resp 21 26 24 22 B/P (MAP) 109/73 (85) 92/56 (68) 80/48 90/55 (67) Pulse Ox 96 96 96 93 O2 Delivery Room Air Room Air Room Air Room Air 01/01/19 01/01/19 01/02/19 01/02/19 20:15 23:39 04:00 08:00 Temp 97.8 100.0 Pulse 88 84 Resp 20 20 B/P (MAP) 90/45 (60) 124/57 (79) Pulse Ox 97 93 97 95 O2 Delivery Room Air Room Air Room Air Room Air 01/02/19 01/02/19 08:00 12:00 Temp 97.9 98.9 Pulse 96 94 Resp 18 16 B/P (MAP) 118/72 (87) 105/66 (79) Pulse Ox 95 97 O2 Delivery Room Air Room Air Capillary Refill : Less Than 3 Seconds General Appearance: thin (frail adult female, NAD) HEENT: tonsillar exudate, other Neck: non-tender, full range of motion, supple Respiratory: chest non-tender, lungs clear, normal breath sounds, no respiratory distress, no accessory muscle use Cardiovascular: normal peripheral pulses, regular rate, rhythm, no murmur Gastrointestinal: normal bowel sounds, non tender, soft, no organomegaly Back: no CVA tenderness, no vertebral tenderness Extremities: swelling (Pain with minimal palpation on hands and feet equal bilaterally) Neurologic/Psychiatric: application development liaison II-XII nml as tested, alert, normal mood/affect, oriented x 3 Skin: normal color, warm/dry Lymphatic: no adenopathy Assessment/Plan Assessment/Plan Admission Status: Observation (1) Fever Status: Acute Assessment & Plan: - Likely 2/2 to UTI vs pharyngitis vs Thrush Qualifiers: Qualified Codes: R50.9 - Fever, unspecified (2) Neuropathy associated with cancer Status: Chronic Assessment & Plan: - Restart Gabapentin, likely chemo induced neuropathy (3) Thrush, oral Status: Acute Assessment & Plan: - Nystatin Swish and Swallow added today (4) Hyponatremia Status: Acute Assessment & Plan: - Likely 2/2 to nutrition/dehydration, will continue to monitor, AOx3 (5) Lung cancer Status: Acute Assessment & Plan: - Onc following patient Qualifiers: Qualified Codes: C34.02 - Malignant neoplasm of left main bronchus Clinical Quality Measures DVT/VTE Risk/Contraindication: Risk Factor Score Per Nursin RFS Level Per Nursing on Admit: 4+=Very High SHANNAN KABA MD Jan 02, 2019 11:43
[2019-01-02 12:00] VITALS: BP 105/66
[2019-01-02] MEDS ORDERED: VANCOMYCIN 1 GM/NS 250 ML IVPB IV SCH ×2 (12:00)
[2019-01-02] MEDS: NYSTATIN ORAL SUSP 5 ML UDC PO SCH ×3 (12:25→23:16)
[2019-01-02 15:41] VITALS: BP 88/57
--- NOTE | 2019-01-02 16:11 | Consultation ---
History of Present Illness History of Present Illness Patient Consulted On(quincy/time) 01/02/19 15:55 Date Seen by Provider: Jan 02, 2019 Time Seen by Provider: 15:55 Reason for Visit: Lung cancer, UTI and arthritis History of Present Illness Ms. Portillo is a 63 year old female admitted from ER for UTI and left lower lobe adenocarcinoma of the lung and swelling hands and feet. She was diagnosed stage II adenocarcinoma of the LLL lung at [facility] in [place], [place]. Tumor 5x4.7cm (07/29/18), RGFR and ALK both negative. PDL-1 10% expression. BRAF and ROS1 unknown as of 11/30/18. 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 She was started on Carbo + Taxol + Avastin +Tecentriq q 3 wks with Neulasta from 08/03/2018. Her last treatment was 6 weeks ago (Carbo 500mg, Taxol 300mg, Tecentriq 1200mg, Avastin 1000mg on 10/26/18). She stated that she could not take care of herself any more over [place] so she moved to her daughter here 2 weeks ago. She has a lot of fatigue, hands and joint pain and swelling of both hands and feet. She went to urgent care and was given pain medication. Her pain was not any better. She then went to ER over the weekend and was found to have UTI. She also has low grade fever. n/v/d/ over last 3 days. Allergies and Home Medications Allergies Coded Allergies: codeine (Unverified Adverse Reaction, Mild, n/v, 11/14/11) morphine (Unverified Adverse Reaction, Mild, n/v, 11/14/11) Home Medications Gabapentin 300 Mg Capsule, 300 MG PO BID Prescribed by: CHRISTOPHER CULLEN on 12/28/18 1331 Potassium Chloride 10 Meq Tablet.er, 10 MEQ PO DAILY Prescribed by: CHRISTOPHER CULLEN on 12/28/18 1331 Promethazine HCl 25 Mg Tablet, 25 MG PO Q6H PRN for NAUSEA/VOMITING-2ND LINE, (Reported) Patient Home Medication List Home Medication List Reviewed: Yes Past Avtejzo-Xkdgqf-Ungcie Hx Past Med/Social Hx: Reviewed Nursing Past Med/Soc Hx Patient Social History Alcohol Use: Denies Use Recreational Drug Use: No Smoking Status: Current Everyday Smoker Type Used: Cigarettes Recent Foreign Travel: No Contact w/Someone Who Travel: No Recent Infectious Disease Expo: No Recent Hopitalizations: No Immunizations Up To Date Tetanus Booster (TDap): Unknown Seasonal Allergies Seasonal Allergies: No Past Medical History Surgeries: Yes Hysterectomy, Orthopedic Respiratory: Yes COPD, Emphysema Currently Using CPAP: No Currently Using BIPAP: No Cardiac: No Neurological: Yes : No 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 Genitourinary: No Gastrointestinal: No Musculoskeletal: No Endocrine: No HEENT: No Cancer: Yes Lung What Type of Treatment Did You: Chemotherapy Psychosocial: No Integumentary: No Blood Disorders: No Adverse Reaction/Blood Tranf: No Review of Systems-General Constitutional: malaise, weakness Respiratory: cough, short of breath Cardiovascular: no symptoms reported Gastrointestinal: diarrhea, nausea, vomiting Physical Exam-General Problems Physical Exam Vital Signs Vital Signs - First Documented 01/01/19 14:09 Temp 100.3 Pulse 105 Resp 21 B/P (MAP) 109/73 (85) Pulse Ox 96 O2 Delivery Room Air Capillary Refill : Less Than 3 Seconds General Appearance: no apparent distress HEENT: PERRL/EOMI Respiratory: no respiratory distress, no accessory muscle use, accessory muscle use Cardiovascular: regular rate, rhythm, no edema, no JVD Gastrointestinal: non tender, soft Extremities: no calf tenderness (rheumatoid arthritis changes over both hands. swelling both feet), inflammation, swelling Neurologic/Psychiatric: alert, oriented x 3 Assessment/Plan Assessment/Plan Admission Diagnosis/Plan IMP: 1. Fever, UTI on Vanco and Zosyn 2. Adenocarcinoma of the LLL lung, stage II as of 07/2018, s/p 6 cycles of Carbo+ Taxol + Avastin + Tecentriq treatment. Last treatment 6 weeks ago 3. Fatigue and rheumatoid arthritis changes and pain of both hands and feet, most likely related to autoimmune reactions from Tecentrig. 4. Nausea, vomiting and diarrhea. 5. Hyponatremia from lung cancer. 6. Anemia, multi-factorials, infection, cancer and chemo Plan: 1. Stop chemo and Tecentrig 2. Prednisone 50mg daily for 5 days and then re-evaluate 3. Agree with current antibiotics. F/u culture and sensitivity. 4. Pepcid while on the high dose of Prednisone 5. Will f/u with you. Admission Status: Inpatient Order (span 2 midnights) Clinical Quality Measures DVT/VTE Risk/Contraindication: Risk Factor Score Per Nursin RFS Level Per Nursing on Admit: 4+=Very High ROHAN MOODY MD Jan 02, 2019 16:11
[2019-01-02] MEDS: predniSONE 20 MG TAB PO SCH (16:43)
[2019-01-02] MEDS: NICOTINE 21 MG (NICODERM) PATCH TD SCH (17:16)
[2019-01-02 19:16] VITALS: BP 96/57
[2019-01-02] MEDS: FAMOTIDINE 20 MG (PEPCID) TABLET PO SCH (21:09)
[2019-01-03] VITALS: BP 113/59
[2019-01-03] MEDS: HYDROcodone/APAP 5 MG/325 MG (LORTAB) TAB PO PRN ×3 (03:48→16:50)
[2019-01-03 04:00] VITALS: BP 128/76
[2019-01-03] MEDS: PIPERACILLIN/TAZO 4.5 GM/NS 100 ML IV SCH ×2 (05:56)
[2019-01-03] MEDS: oxyCODONE/APAP 5/325MG (PERCOCET 5) TABLET PO PRN ×3 (05:57→20:26)
[2019-01-03] MEDS: NYSTATIN ORAL SUSP 5 ML UDC PO SCH ×3 (05:57→18:32)
[2019-01-03 06:29] LABS: BASOPHILS % (AUTO) 0 % (0-10); EOSINOPHILS % (AUTO) 0 % (0-10); HEMATOCRIT 28 % (35-52); HEMOGLOBIN 9.4 G/DL (11.5-16.0); LYMPHOCYTES # (AUTO) 0.5 X 10^3 (1.0-4.0); LYMPHOCYTES % (AUTO) 41 % (12-44); MEAN CORPUSCULAR HEMOGLOBIN 30 PG (25-34); MEAN CORPUSCULAR HGB CONC 34 G/DL (32-36); MEAN CORPUSCULAR VOLUME 88 FL (80-99); MEAN PLATELET VOLUME 8.5 FL (7.4-10.4); MONOCYTES # (AUTO) 0.1 X 10^3 (0.0-1.0); MONOCYTES % (AUTO) 5 % (0-12); NEUTROPHILS # (AUTO) 0.7 X 10^3 (1.8-7.8); NEUTROPHILS % (AUTO) 54 % (42-75); PLATELET COUNT 284 10^3/uL (130-400); RED CELL DISTRIBUTION WIDTH 13.7 % (10.0-14.5)
[2019-01-03 06:38] LABS: WHITE BLOOD COUNT 1.3 10^3/uL (4.3-11.0)
[2019-01-03 06:46] LABS: BUN/CREATININE RATIO 10; CALCIUM 8.6 MG/DL (8.5-10.1); CARBON DIOXIDE 17 MMOL/L (21-32); CHLORIDE 107 MMOL/L (98-107); CREATININE SERUM 0.58 MG/DL (0.60-1.30); GFR ESTIMATED > 60; GLUCOSE 129 MG/DL (70-105); POTASSIUM 4.6 MMOL/L (3.6-5.0); SODIUM 135 MMOL/L (135-145)
--- NOTE | 2019-01-03 06:47 | NUR ---
notified Dr Kaba of critical lab value, wbc 1.3. no orders at this time
[2019-01-03 08:00] VITALS: BP 127/61
[2019-01-03] MEDS: SENNA W/DOCUSATE (SENOKOT S) TABLET PO SCH ×2 (08:57→20:26)
[2019-01-03] MEDS: predniSONE 20 MG TAB PO SCH (08:57)
[2019-01-03] MEDS: NICOTINE 21 MG (NICODERM) PATCH TD SCH (08:57)
[2019-01-03] MEDS: GABAPENTIN 300 MG (NEURONTIN) CAP PO SCH ×2 (08:57→20:26)
[2019-01-03] MEDS: NICOTINE PATCH REMOVAL TP SCH (08:57)
[2019-01-03] MEDS: FAMOTIDINE 20 MG (PEPCID) TABLET PO SCH ×2 (08:57→20:26)
[2019-01-03] MEDS: NS IV 1000 ML 1,000 ML IV SCH ×2 (11:16→20:25)
[2019-01-03] MEDS: cefTRIAXone FOR IV USE 2,000 MG in WATER (STERILE) FOR INJECTION 20 ML IV SCH (11:54)
[2019-01-03 12:09] LABS: BASOPHILS % (AUTO) 0 % (0-10); EOSINOPHILS % (AUTO) 0 % (0-10); HEMATOCRIT 28 % (35-52); HEMOGLOBIN 9.6 G/DL (11.5-16.0); LYMPHOCYTES # (AUTO) 0.8 X 10^3 (1.0-4.0); LYMPHOCYTES % (AUTO) 46 % (12-44); MEAN CORPUSCULAR HEMOGLOBIN 30 PG (25-34); MEAN CORPUSCULAR HGB CONC 34 G/DL (32-36); MEAN CORPUSCULAR VOLUME 88 FL (80-99); MEAN PLATELET VOLUME 8.5 FL (7.4-10.4); MONOCYTES # (AUTO) 0.1 X 10^3 (0.0-1.0); MONOCYTES % (AUTO) 4 % (0-12); NEUTROPHILS # (AUTO) 0.8 X 10^3 (1.8-7.8); NEUTROPHILS % (AUTO) 50 % (42-75); PLATELET COUNT 271 10^3/uL (130-400); RED CELL DISTRIBUTION WIDTH 13.7 % (10.0-14.5); WHITE BLOOD COUNT 1.6 10^3/uL (4.3-11.0)
[2019-01-03 12:27] VITALS: BP 122/64
--- NOTE | 2019-01-03 13:38 | Oncology Progress Note ---
Subjective Date Seen by a Provider: Jan 03, 2019 Time Seen by a Provider: 13:32 Subjective/Events-last exam Pt is feeling better today. Pain is much improved. She smiles to me today. She wants to go home if possible. No fever. WBC down today from normal to 1.3 and 1.6 (repeated) since we started her on Vanco and Zosyn. Last Chemo was 6 weeks ago. It is most likely NOT related to chemo. Data Review Labs Laboratory Tests 01/03/19 05:55 01/03/19 12:00 Laboratory Tests 01/01/19 14:37: Red Blood Count 3.10L, Hemoglobin 9.2L, Hematocrit 27L, Monocytes (%) (Auto) 15H , Prothrombin Time 15.0H, Activated Partial Thromboplast Time 51H, Sodium Level 126L, Potassium Level 3.4L, Chloride Level 94L, Blood Urea Nitrogen 6L, Calcium Level 8.4L, C-Reactive Protein High Sensitivity 13.49H, Total Protein 5.8L, Albumin 2.7L 01/01/19 16:22: Urine Specific [place] 1.015L, Urine Ketones 3+H, Urine Leukocyte Esterase 3+H, Urine WBC 10-25H 01/02/19 06:45: Red Blood Count 2.85L, Hemoglobin 8.6L, Hematocrit 25L, Monocytes (%) (Auto) 13H , Sodium Level 128L, Potassium Level 3.5L, Blood Urea Nitrogen 5L, Calcium Level 8.3L, Total Protein 5.3L, Albumin 2.5L, Carbon Dioxide Level 19L, Creatinine 0.58L, Glucose Level 51*L 01/02/19 08:40: 01/03/19 05:55: White Blood Count 1.3*L, Red Blood Count 3.15L, Hemoglobin 9.4L, Hematocrit 28L, Neutrophils # (Auto) 0.7L, Lymphocytes # (Auto) 0.5L, Carbon Dioxide Level 17L, Blood Urea Nitrogen 6L, Creatinine 0.58L, Glucose Level 129H 01/03/19 12:00: White Blood Count 1.6L, Red Blood Count 3.20L, Hemoglobin 9.6L, Hematocrit 28L, Neutrophils # (Auto) 0.8L, Lymphocytes # (Auto) 0.8L, Lymphocytes (%) (Auto) 46H Physical Exam Vital Signs Vital Signs - First Documented 01/01/19 01/03/19 14:09 08:00 Temp 100.3 Pulse 105 Resp 21 B/P (MAP) 109/73 (85) Pulse Ox 96 O2 Delivery Room Air O2 Flow Rate 0.00 Capillary Refill : Less Than 3 Seconds Height, Weight, BMI Height: 5'7.00" Weight: 140lbs. 4.0oz. [id number]; 22.0 BMI Method:Stated General Appearance: No Apparent Distress HEENT: PERRL/EOMI Neck: Non Tender, Supple Respiratory: Lungs Clear, No Accessory Muscle Use, No Respiratory Distress Cardiovascular: Regular Rate, Rhythm, No JVD Gastrointestinal: Non Tender, Soft Extremity: Inflammation, Swelling Neurologic/Psychiatric: Alert, Oriented x3 Focused Exam Lactate Level 01/01/19 14:37: Lactic Acid Level 0.69 Impression & Plan Impression & Plan IMP: 1. Fever, UTI on Vanco and Zosyn. No sign of pneumonia. Pt became leukopenia since the antibiotics. I will stop Vanco and Zosyn. Give a dose of IV Rocephin 2g today. 2. Adenocarcinoma of the LLL lung, stage II as of 07/2018, s/p 6 cycles of Carbo+ Taxol + Avastin + Tecentriq treatment. Last treatment 6 weeks ago. 3. Fatigue and rheumatoid arthritis changes and pain of both hands and feet, most likely related to autoimmune reactions from Tecentrig. Improving since the Prednisone. 4. Nausea, vomiting and diarrhea. ?autoimmune related colitis from the Tecentrig. Improving 5. Hyponatremia from lung cancer. 6. Anemia, multi-factorials, infection, cancer and chemo. Better Plan: 1. Stop chemo and Tecentrig 2. Continue Prednisone 50mg daily for 10 days and then re-evaluate. I will see her in the cancer center to decide the taper. She will see her on 01/09/19 10:30am. Her daughter has the appointment card. 3. If no fever by tomorrow, change to oral cipro 250mg bid or Dr Sendy roque. Dr. Marcelo to decide the course. I think 3-5 more days are sufficient. 4. Pepcid while on the high dose of Prednisone 5. Pt can go home from Hem/Onc point of view. Clinical Quality Measures DVT/VTE Risk/Contraindication: Risk Factor Score Per Nursin RFS Level Per Nursing on Admit: 4+=Very High ROHAN MOODY MD Jan 03, 2019 13:38
--- NOTE | 2019-01-03 13:55 | Progress Note (SOAP) ---
Subjective Subjective/Events-last exam Patient states that she is feeling better today. Throat still sore but not as bad with the mouth wash. Tolerating PO diet and ambulating Review of Systems Date Seen by Provider: Jan 03, 2019 Time Seen by Provider: 10:45 General: Malaise HEENT: Sore Throat Pulmonary: No Cough Cardiovascular: No: Chest Pain, Palpitations Gastrointestinal: No: Nausea, Vomiting Genitourinary: Frequency Focused Exam Lactate Level 01/01/19 14:37: Lactic Acid Level 0.69 Objective Exam Last Set of Vital Signs Vital Signs Date Time Temp Pulse Resp B/P (MAP) Pulse Ox O2 Delivery O2 Flow Rate FiO2 01/03/19 12:27 97.4 85 19 122/64 (83) 96 Room Air 0.00 Capillary Refill : Less Than 3 Seconds I&O Intake and Output 01/03/19 00:00 Intake Total 4500 ml Output Total 3600 ml Balance 900 ml Intake Oral 3000 ml IV Total 1500 ml Output Urine Total 3600 ml General: Alert, Oriented X3, No Acute Distress HEENT: Other (erythema and plaques improved) Lungs: Clear to Auscultation, Normal Air Movement Heart: Regular Rate, No Murmurs Abdomen: Normal Bowel Sounds, Soft, No Tenderness, No Masses Extremities: No Edema, No Tenderness/Swelling Psych/Mental Status: Mental Status NL, Mood NL Results/Procedures Lab Laboratory Tests 01/03/19 05:55: White Blood Count 1.3*L, Red Blood Count 3.15L, Hemoglobin 9.4L, Hematocrit 28L, Mean Corpuscular Volume 88, Mean Corpuscular Hemoglobin 30, Mean Corpuscular Hemoglobin Concent 34, Red Cell Distribution Width 13.7, Platelet Count 284, Mean Platelet Volume 8.5, Neutrophils (%) (Auto) 54, Lymphocytes (%) (Auto) 41, Monocytes (%) (Auto) 5, Eosinophils (%) (Auto) 0, Basophils (%) (Auto) 0, Neutrophils # (Auto) 0.7L, Lymphocytes # (Auto) 0.5L, Monocytes # (Auto) 0.1, Eosinophils # (Auto) 0.0, Basophils # (Auto) 0.0, Sodium Level 135, Potassium Level 4.6, Chloride Level 107, Carbon Dioxide Level 17L, Anion Gap 11, Blood Urea Nitrogen 6L, Creatinine 0.58L, Estimat Glomerular Filtration Rate > 60, BUN/Creatinine Ratio 10, Glucose Level 129H, Calcium Level 8.6 01/03/19 12:00: White Blood Count 1.6L, Red Blood Count 3.20L, Hemoglobin 9.6L, Hematocrit 28L, Mean Corpuscular Volume 88, Mean Corpuscular Hemoglobin 30, Mean Corpuscular Hemoglobin Concent 34, Red Cell Distribution Width 13.7, Platelet Count 271, Mean Platelet Volume 8.5, Neutrophils (%) (Auto) 50, Lymphocytes (%) (Auto) 46H, Monocytes (%) (Auto) 4, Eosinophils (%) (Auto) 0, Basophils (%) (Auto) 0, Neutrophils # (Auto) 0.8L, Lymphocytes # (Auto) 0.8L, Monocytes # (Auto) 0.1, Eosinophils # (Auto) 0.0, Basophils # (Auto) 0.0 Microbiology 01/01/19 Blood Culture - Preliminary, Resulted No growth 01/01/19 Urine Culture - Final, Complete Mixed Bacterial Lucia Gardnerella vaginalis Assessment/Plan Assessment/Plan (1) Fever Status: Acute Assessment & Plan: - Likely 2/2 to UTI vs pharyngitis vs Thrush 01/03: Urine culture growing Gardnerella, Will Add Flagyl Qualifiers: Qualified Codes: R50.9 - Fever, unspecified (2) Neuropathy associated with cancer Status: Chronic Assessment & Plan: - Restart Gabapentin, 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
[2019-01-03 16:00] VITALS: BP 137/75
[2019-01-03 20:00] VITALS: BP 127/79
[2019-01-03] MEDS: metroNIDAZOLE 500 MG (FLAGYL) TAB PO SCH (20:26)
[2019-01-04] MEDS: NYSTATIN ORAL SUSP 5 ML UDC PO SCH ×3 (00:41→11:40)
[2019-01-04 00:45] VITALS: BP 116/58
[2019-01-04 03:50] VITALS: BP 102/56
[2019-01-04] MEDS: NS IV 1000 ML 1,000 ML IV SCH (04:27)
[2019-01-04] MEDS: oxyCODONE/APAP 5/325MG (PERCOCET 5) TABLET PO PRN (05:11)
[2019-01-04 05:28] LABS: BASOPHILS % (AUTO) 0 % (0-10); EOSINOPHILS % (AUTO) 0 % (0-10); HEMATOCRIT 24 % (35-52); HEMOGLOBIN 8.2 G/DL (11.5-16.0); LYMPHOCYTES # (AUTO) 1.3 X 10^3 (1.0-4.0); LYMPHOCYTES % (AUTO) 24 % (12-44); MEAN CORPUSCULAR HEMOGLOBIN 30 PG (25-34); MEAN CORPUSCULAR HGB CONC 34 G/DL (32-36); MEAN CORPUSCULAR VOLUME 88 FL (80-99); MEAN PLATELET VOLUME 8.1 FL (7.4-10.4); MONOCYTES # (AUTO) 0.6 X 10^3 (0.0-1.0); MONOCYTES % (AUTO) 12 % (0-12); NEUTROPHILS # (AUTO) 3.4 X 10^3 (1.8-7.8); NEUTROPHILS % (AUTO) 65 % (42-75); PLATELET COUNT 329 10^3/uL (130-400); WHITE BLOOD COUNT 5.3 10^3/uL (4.3-11.0)
[2019-01-04 05:45] LABS: BUN/CREATININE RATIO 9; CALCIUM 8.5 MG/DL (8.5-10.1); CARBON DIOXIDE 19 MMOL/L (21-32); CHLORIDE 110 MMOL/L (98-107); CREATININE SERUM 0.58 MG/DL (0.60-1.30); GFR ESTIMATED > 60; GLUCOSE 155 MG/DL (70-105); POTASSIUM 3.3 MMOL/L (3.6-5.0); SODIUM 139 MMOL/L (135-145)
[2019-01-04] MEDS: predniSONE 20 MG TAB PO SCH (06:17)
[2019-01-04 08:36] VITALS: BP 119/65
[2019-01-04] MEDS: metroNIDAZOLE 500 MG (FLAGYL) TAB PO SCH (08:52)
[2019-01-04] MEDS: FAMOTIDINE 20 MG (PEPCID) TABLET PO SCH (08:52)
[2019-01-04] MEDS: NICOTINE 21 MG (NICODERM) PATCH TD SCH (08:52)
[2019-01-04] MEDS: NICOTINE PATCH REMOVAL TP SCH (08:52)
[2019-01-04] MEDS: GABAPENTIN 300 MG (NEURONTIN) CAP PO SCH (08:52)
[2019-01-04] MEDS: HYDROcodone/APAP 5 MG/325 MG (LORTAB) TAB PO PRN (08:53)
[2019-01-04] MEDS: SENNA W/DOCUSATE (SENOKOT S) TABLET PO SCH (08:53)
[2019-01-04] MEDS ORDERED: TROUGH ORDER-PHARMACY XX NR (11:00)
[2019-01-04] MEDS: cefTRIAXone FOR IV USE 2,000 MG in WATER (STERILE) FOR INJECTION 20 ML IV SCH (11:40)
--- NOTE | 2019-01-04 12:14 | Discharge Summary ---
Diagnosis/Chief Complaint Date of Admission Jan 01, 2019 at 18:16 Date of Discharge 01/04/2019 Admission Diagnosis Admission Diagnosis See problem list Discharge Diagnosis See below Problems/Diagnosis: (1) Fever Assessment & Plan: - Likely 2/2 to UTI vs pharyngitis vs Thrush 01/03: Urine culture growing Gardnerella, Will Add Flagyl 01/04: Sent home to continue Flagyl, Blood culture neg Qualifiers: Qualified Codes: R50.9 - Fever, unspecified Status: Acute (2) Neuropathy associated with cancer Assessment & Plan: - Restart Gabapentin, likely chemo induced neuropathy 01/03: Continue Gabapentin, Room to increase if pain comes back 01/04: Scripts for gabapentin and percocet sent with patient Status: Chronic (3) Thrush, oral Assessment & Plan: - Nystatin Swish and Swallow added today Status: Acute (4) Hyponatremia Assessment & Plan: - Likely 2/2 to nutrition/dehydration, will continue to monitor, AOx3 Status: Resolved Resolution Date/Time: 01/03/19 @ 14:18 (5) Lung cancer Assessment & Plan: - Onc following patient Qualifiers: Qualified Codes: C34.02 - Malignant neoplasm of left main bronchus Status: Acute Chief Complaint/HPI Chief Complaint/HPI 63 yo F with lung cancer that presented to ER with pain in her feet and hands that started 3 days prior to presentation. States that she has felt off and not like herself for a couple weeks. States that she is currently in treatment for her lung Ca and her last treatment was 6 weeks ago. Denies any fever or chills. No recent sick contacts. States that her mouth and throat hurt as well and it is hard for her to swallow. Discharge Summary-Simple/Stand Consultations Dr Smalls: Oncology Discharge Physical Examination Allergies: Coded Allergies: codeine (Unverified Adverse Reaction, Mild, n/v, 11/14/11) morphine (Unverified Adverse Reaction, Mild, n/v, 11/14/11) Vitals & I&Os Vital Sign - Last 12Hours Date Time Temp Pulse Resp B/P (MAP) Pulse Ox O2 Delivery O2 Flow Rate FiO2 01/04/19 08:36 97.9 90 16 119/65 (83) 96 Room Air 0.00 Intake and Output 01/04/19 00:00 Intake Total 1540 ml Output Total 2000 ml Balance -460 ml General Appearance: Alert, Oriented X3, Cooperative, No Acute Distress HEENT: Mucous Memb Moist/[place] Respiratory: Clear to Auscultation, Normal Air Movement Cardiovascular: Regular Rate, No Murmurs Abdominal: Normal Bowel Sounds, Soft, No Tenderness, No Masses Extremities: No Edema, Other (tenderness in LE improving) Skin: No Rashes, No Breakdown Neuro: Normal Speech, Strength at 5/5 X4 Ext, Cranial Nerves 3-12 NL Psych/Mental Status: Mental Status NL, Mood NL Hospital Course Was the Problem List Reviewed?: Yes See final discharge diagnosis. Discussion & Recommendations 63 yo F with lung cancer and currently undergoing treatment presented with worsening extremity pain and UTI. UTI grew Susan and patient was started on flagyl to complete 7 days worth of antibiotics. Pain improved during stay, pain likely 2/2 to chemo, would recommend titrating gabapentin up as outpatient to help with neuropathic pain. Discharge Condition at discharge stable Instructions to patient/family Please see electronic discharge instructions given to patient. Discharge Medications Reviewed and agree with Discharge Medication list on patient's Discharge Instr uction sheet Clinical Quality Measures DVT/VTE Risk/Contraindication: Risk Factor Score Per Nursin RFS Level Per Nursing on Admit: 4+=Very High Copy Copies To 1: [facility], GARY Barcenas HOLLY R MD Jan 04, 2019 12:14
[2019-01-04 12:18] VITALS: BP 136/65
[2019-01-04] MEDS ORDERED: GABA-488 PO (12:19)
[2019-01-04] MEDS ORDERED: OXYC1TAB87 PO (12:19)
[2019-01-04] MEDS ORDERED: PRD50T PO (12:19)
[2019-01-04] MEDS ORDERED: METR-145 PO (12:19)
--- NOTE | 2019-01-04 12:20 | Discharge Instructions ---
Discharge [facility] Discharge Medications New, Converted or Re-Newed RX: Transmitted to Pharmacy New Medications: Gabapentin (Gabapentin) 300 Mg Capsule 300 MG PO BID for 30 Days, #60 CAP Metronidazole (Metronidazole) 500 Mg Tablet 500 MG PO BID for 6 Days, #12 TAB Oxycodone HCl/Acetaminophen (Percocet 5-325 mg Tablet) 1 Each Tablet 1 TAB PO q6hrs PRN for PAIN-MODERATE for 7 Days, #21 TAB Cancer Related pain Prednisone (Prednisone) 50 Mg Tab 50 MG PO DAILY for 7 Days, #7 TAB Continued Medications: Promethazine HCl (Promethazine Tablet) 25 Mg Tablet 25 MG PO Q6H PRN for NAUSEA/VOMITING-2ND LINE, TAB Discontinued Medications: Gabapentin (Gabapentin) 300 Mg Capsule 300 MG PO BID for 7 Days, #14 CAP Potassium Chloride (Potassium Chloride) 10 Meq Tablet.er 10 MEQ PO DAILY for 7 Days, #14 TAB Patient Instructions Goal/Follow Up Appt: F.u with Oncology next week Patient Instructions: - Make sure you complete your antibiotics Activity & Diet Discharge Diet: No Restrictions SHANNAN AYALA MD Jan 04, 2019 12:20
--- NOTE | 2019-01-04 12:23 | D/C HH Face to Face Order ---
D/C Face to Face Orders Instructions for Patient Via [facility] [place] depict, Patient Instructions/FollowUp: Oncology next week Physician to follow Patient: Gama Discharge Diet for Home: No Restrictions Patient Problems: Lung Cancer Debility UTI Neuropathy LE pain Patient Data-Allergies,Ht & Wt Patient Allergies: Coded Allergies: codeine (Unverified Adverse Reaction, Mild, n/v, 11/14/11) morphine (Unverified Adverse Reaction, Mild, n/v, 11/14/11) Height (Feet): 5 Height (Inches): 7.00 Weight (Pounds): 140 Weight (Ounces): 4.0 Home Health Need/Face to Face Date of Face to Face: Jan 04, 2019 Clinical Findings: Generalized weakness and fatigue, Immune-compromised, Pain with ambulation, Unsteady gait I have seen Pt [id number]: Yes Discharged To: Home Diagnosis/Conditions: See Above Patient is Homebound due to: Laura fall risk due to instabilty, Muscle weakness, Pain w/ambulation, Shortness of breath/distress Homebound Status Due to the above stated illness, injury or surgical procedure (medical condition or diagnosis) and associated clinical findings, the patient is homebound because of his/her inability to leave home except with aid of a supportive device and/or person AND leaving the home requires a considerable and taxing effort or is medically contraindicated. Pt req the following assistanc: Aid of another person Home Health Nursing Orders Home Health Services Order: Nursing Services, Endocrinology Teacher-Evaluate & Treat, Physical Therapy-Evaluate & Treat Home Health Infusion Therapy Line Start Date: Jan 01, 2019 Certify Stmt I certify that this patient is under my care and that I, a nurse practitioner or a physician; a technical administrative assistant working with me, had a face to face encounter that - meets the physician face to face encounter requirements with this patient as dated. SHANNAN AYALA MD Jan 04, 2019 12:23
--- NOTE | 2019-01-04 12:53 | NUR ---
Pt pleased to be discharged home with pt's ariellaJohann Nitesh as her primary caregiver. She was referred to [facility] care for Nursing, Physical Therapy and Occupational Therapy to follow. Will fax final discharge orders and History and Physical and discharge instructions to [facility]. [facility] Admissions Nurse states that pt won't' be seen till Wednesday the 07 of January. Advised pt and caregiver and they are agreeable with visit on Wednesday. Pt has questions about eligibility for Medicaid and obtaining in-home care but wants to wait till after she gets home to further discuss. Will follow-up this week and will [facility] at [facility].
[2019-01-04 13:27] VITALS: BP 136/65
--- NOTE | 2019-01-04 13:27 | NUR ---
CHRISTIE CARR demonstrates understanding of discharge instructions and accurately returns instructions upon questioning. Copy of Post-Discharge Instructions and Medication Discharge Instructions given to PATIENT. CHRISTIE CARR is able to manage continuing needs after discharge. Patients belongings returned to [facility]. Skin dry and intact; no breakdown noted. Patient discharged from [facility] on at 1327. CHRISTIE CARR left floor via WHEELCHAIR, accompanied by STAFF AND ADULT CHILD.
--- NOTE | 2019-01-04 13:29 | NUR ---
Please note that pt initially chose [facility] but her [facility] insurance considered this agency out of network and would only pay for 40% of charges. Pt 's insurance had one provider that was in-network which would pay for 100% charges that is in pt's locale. Pt then chose [facility] as her Home Health of choice due to better insurance coverage of financial charges.
== END 2019-01-04 13:27 | disposition home health service (06) | DRG 690 ==
LOC: EDUNIT# 14:05 → ER 14:06 → 4TH 18:16
PROVIDERS: ADMIT Internal Medicine; ATTEND Family Medicine
DX: N39.0 Urinary tract infection, site not specified (principal); B96.89 Other specified bacterial agents as the cause of diseases classified elsewhere; B37.0 Candidal stomatitis; J02.9 Acute pharyngitis, unspecified; C34.02 Malignant neoplasm of left main bronchus; E87.1 Hypo-osmolality and hyponatremia; K52.1 Toxic gastroenteritis and colitis; R13.10 Dysphagia, unspecified; G62.89 Other specified polyneuropathies; T45.1X5A Adverse effect of antineoplastic and immunosuppressive drugs, initial encounter; E86.0 Dehydration; M06.9 Rheumatoid arthritis, unspecified; R53.83 Other fatigue; D63.0 Anemia in neoplastic disease; D64.81 Anemia due to antineoplastic chemotherapy; D64.89 Other specified anemias; K52.9 Noninfective gastroenteritis and colitis, unspecified; J43.9 Emphysema, unspecified; F17.210 Nicotine dependence, cigarettes, uncomplicated; R60.0 Localized edema; Z79.899 Other long term (current) drug therapy
CPT/HCPCS: 36415; 71045; 80048; 80053; 81000; 82550; 82962; 83605; 83880; 84443; 85025; 85610; 85730; 86141; 87040; 87088; 96361; 96365; 96375

== ENCOUNTER 2019-01-15 16:37 | Emergency (ER) | payer OTHER | END 2019-01-15 22:36 | disposition short-term general hospital (02) | LOC: ER 16:37 ==

== ENCOUNTER 2019-01-28 13:27 | Inpatient (IN) | payer MEDICAID ==
[~2019-01-28] VITALS: Ht 170.2 cm; Wt 56.5 kg
[~2019-01-28 13:27] MED LIST changes: +METR-145 PO; +OXYC1TAB87 PO; +PRD50T PO; +PROM25TA14 PO
[2019-01-28] MEDS ORDERED: LACTATED RINGERS 1,000 ML IV ONE (13:33)
--- OUTSIDE RECORDS SUMMARY | 2019-01-28 13:44 | XMS REPORT | Continuity of Care Document ---
Author Organization Unknown Address Unknown Allergies There is no data. Medications There is no data. Problems There is no data. Procedures There is no data. Results There is no data. Encounters ACCT No. Visit Date/Time Discharge Status Pt. Type Provider Facility Loc./Unit Complaint [id number] 01/14/2019 12:30:00 01/14/2019 23:59:59 CLS Outpatient ESPINOZA CERVANTES [facility] IN [facility]
[2019-01-28] MEDS ORDERED: ONDANSETRON 4 MG/2 ML (SDV) Z0FRAN IVP ONE (13:45)
[2019-01-28] MEDS ORDERED: HYOSCYAMINE 0.125 MG (LEVSIN) TAB SL ONE (13:45)
--- NOTE | 2019-01-28 13:49 | NUR ---
EMS FLUIDS 500CC INFUSED.
[2019-01-28 13:51] LABS: BASOPHILS % (AUTO) 0 % (0-10); EOSINOPHILS # (AUTO) 0.1 10^3/uL (0.0-0.3); EOSINOPHILS % (AUTO) 1 % (0-10); HEMATOCRIT 39 % (35-52); HEMOGLOBIN 12.6 G/DL (11.5-16.0); LYMPHOCYTES # (AUTO) 2.1 X 10^3 (1.0-4.0); LYMPHOCYTES % (AUTO) 11 % (12-44); MEAN CORPUSCULAR HEMOGLOBIN 30 PG (25-34); MEAN CORPUSCULAR HGB CONC 32 G/DL (32-36); MEAN CORPUSCULAR VOLUME 95 FL (80-99); MEAN PLATELET VOLUME 8.9 FL (7.4-10.4); MONOCYTES # (AUTO) 0.9 X 10^3 (0.0-1.0); MONOCYTES % (AUTO) 5 % (0-12); NEUTROPHILS # (AUTO) 15.4 X 10^3 (1.8-7.8); NEUTROPHILS % (AUTO) 83 % (42-75); PLATELET COUNT 196 10^3/uL (130-400); RED CELL DISTRIBUTION WIDTH 19.8 % (10.0-14.5); WHITE BLOOD COUNT 18.5 10^3/uL (4.3-11.0)
[2019-01-28 13:53] LABS: BILIRUBIN,URINE NEGATIVE (NEGATIVE); CLARITY,URINE CLEAR; COLOR,URINE YELLOW; GLUCOSE, URINE (UA) NEGATIVE (NEGATIVE); KETONES,URINE NEGATIVE (NEGATIVE); LEUKOCYTE ESTERASE ,URINE NEGATIVE (NEGATIVE); NITRITE,URINE NEGATIVE (NEGATIVE); PH,URINE 5 (5-9); PROTEIN,URINE NEGATIVE (NEGATIVE); UROBILINOGEN,URINE NORMAL (NORMAL)
[2019-01-28] MEDS ORDERED: ACETAMINOPHEN 500 MG TAB (TYLENOL) PO PRN (14:00)
[2019-01-28 14:02] LABS: BACTERIA,URINE NEGATIVE /HPF; SQUAMOUS EPITHELIAL CELL,UR RARE /HPF
[2019-01-28 14:04] LABS: INR 0.9 (0.8-1.4); PROTHROMBIN TIME PATIENT 12.6 SEC (12.2-14.7)
[2019-01-28 14:08] LABS: AMPHETAMINE SCREEN, URINE NEGATIVE (NEGATIVE); BARBITURATE SCREEN URINE NEGATIVE (NEGATIVE); BENZODIAZEPINES SCREEN URINE NEGATIVE (NEGATIVE); CANNABINOID SCREEN, URINE NEGATIVE (NEGATIVE); COCAINE SCREEN URINE NEGATIVE (NEGATIVE); METHADONE STAT NEGATIVE (NEGATIVE); METHAMPHETAMINE SCREEN URINE S NEGATIVE (NEGATIVE); OPIATE SCREEN URINE NEGATIVE (NEGATIVE); OXYCODONE STAT POSITIVE (NEGATIVE); PROPOXYPHENE STAT NEGATIVE (NEGATIVE); TRICYCLIC ANTIDEPRESSANTS SCRE NEGATIVE (NEGATIVE)
[2019-01-28 14:11] LABS: ALANINE AMINOTRANSFERASE 18 U/L (0-55); ALBUMIN 3.7 GM/DL (3.2-4.5); ALKALINE PHOSPHATASE 63 U/L (40-136); AMYLASE 90 U/L (25-125); BILIRUBIN,TOTAL 0.5 MG/DL (0.1-1.0); BUN/CREATININE RATIO 24; CALCIUM 9.2 MG/DL (8.5-10.1); CARBON DIOXIDE 24 MMOL/L (21-32); CHLORIDE 101 MMOL/L (98-107); CREATININE SERUM 0.68 MG/DL (0.60-1.30); GFR ESTIMATED > 60; GLUCOSE 86 MG/DL (70-105); LIPASE 27 U/L (8-78); MAGNESIUM 1.5 MG/DL (1.8-2.4); POTASSIUM 3.9 MMOL/L (3.6-5.0); SODIUM 136 MMOL/L (135-145)
[2019-01-28] MEDS ORDERED: MAGNESIUM 1 GM/100 ML IVPB 100 ML IV ONE (14:30)
[2019-01-28 14:41] LABS: LYMPHOCYTES % (MANUAL) 15 %; MONOCYTES % (MANUAL) 1 %; NEUTROPHILS % (MANUAL) 81 %; RBC MORPH NORMAL; REACTIVE LYMPHOCYTES 3 %
--- NOTE | 2019-01-28 14:42 | NUR ---
NEWBERRY NEEDLE CHANGED TO POWER PORT NEEDLE FOR CT.
--- NOTE | 2019-01-28 15:18 | Diagnostic Imaging Report ---
INDICATION: Dyspnea. COMPARISON: 01/15/2019. DISCUSSION: Single portable upright view of the chest was obtained. Mass within the left mid lung is stable. Stable normal heart size. No new consolidation, pleural fluid, or pneumothorax. Right chest wall Rtmrko-u-Lomw and previous fixation of the left humerus are stable. IMPRESSION: 1. No acute cardiopulmonary process. Stable left pulmonary mass. Dictated by: Dictated on workstation # [id number]
[2019-01-28] MEDS ORDERED: CATHETER FLUSH 10 ML SYR IV PRN (15:30)
[2019-01-28] MEDS ORDERED: HOLD METFORMIN - RECEIVED CONTRAST 20 ML VIAL IV SCH (15:30)
[2019-01-28] MEDS ORDERED: IOHEXOL 350 MG/ML 100 ML (OMNIPAQUE 350) VIAL IV ONE (15:30)
[2019-01-28] MEDS ORDERED: NS 100 ML (IVPB) BAG IV ONE (15:30)
--- NOTE | 2019-01-28 15:42 | Diagnostic Imaging Report ---
Procedure: CT abdomen and pelvis with contrast. Technique: Multiple contiguous axial images were obtained through the abdomen and pelvis after administration of intravenous contrast. Auto Exposure Controls were utilized during the CT exam to meet ALARA standards for radiation dose reduction. Indication: Abdominal pain and diarrhea, history of lung cancer. Comparison: 01/15/2019. Discussion: Mass within the left lower lobe is incompletely viewed though appears grossly unchanged from the most recent CT. Normal heart size. No pleural or pericardial fluid. Low-attenuation lesion within the right hepatic lobe is stable. No new liver mass identified. The gallbladder is mildly distended. No stone identified. The pancreas, stomach, spleen and adrenal glands are unremarkable. Scarring along the superior right kidney is stable. No renal stone or hydronephrosis. No renal mass. Urinary bladder is decompressed by a Murphy catheter. There is marked wall thickening of the sigmoid colon and to a lesser degree the ascending and transverse colon, which is most likely due to underlying colitis of either infectious or inflammatory etiology. Underlying diverticulosis is present with no definite secondary evidence for diverticulitis. The aorta is normal in caliber and contains scattered atherosclerotic plaque. No pneumatosis or pneumoperitoneum. No ascites or pathologically enlarged lymph nodes are identified. No osseous abnormality. Impression: 1. Sigmoid colonic wall thickening and inflammatory changes, as described, consistent with nonspecific colitis, new from prior. 2. Large mass within the left lower lobe, incompletely viewed but grossly stable. Dictated by: Dictated on workstation # [id number]
[2019-01-28] MEDS ORDERED: NS IV 1000 ML 1,000 ML IV SCH (16:09)
[2019-01-28] MEDS ORDERED: CIPROFLOXACIN IV 400MG/200ML 200 ML IV ONE (16:15)
[2019-01-28 17:30] VITALS: BP 105/62
--- NOTE | 2019-01-28 18:14 | ED GI ---
General Chief Complaint: Abdominal/GI Problems Stated Complaint: SEPSIS,COLITIS,LUNG CANCER Nursing Triage Note: TO ED ED PER EMS C/O ABD PAIN WITH VOMITING Sepsis Screen: No Definite Risk Source of Information: Patient, Old Records History of Present Illness Date Seen by Provider: Jan 28, 2019 Time Seen by Provider: 13:28 Initial Comments PT ARRIVES VIA EMS FROM HOME C/O NAUSEA/VOMITING/DIARRHEA AND LOWER ABDOMINAL CRAMPING SINCE LAST NIGHT STATES SHE HAS VOMITED X 3 TODAY, IN ADDITION TO DRY HEAVES C/O DIARRHEA "EVERY 15-30 MINUTES"--HAS HAD > 20 STOOLS TODAY. NO BLACK/BLOODY/TARRY STOOLS C/O DIFFUSE LOWER ABDOMINAL PAIN AND CRAMPING HAD SUBJECTIVE FEVER/CHILLS--TEMP IS 100.2 ON ARRIVAL HERE C/O DECREASED URINE OUTPUT NO SICK CONTACTS OR SUSPICIOUS FOODS PT HAS BEEN TREATED FOR LUNG CANCER, WITH LAST CHEMO APPROXIMATELY 8 WEEKS AGO PT SEEN HERE 12/28/18 FOR 1 1/2 MONTHS OF GENERALIZED PAIN, EDEMA, WEAKNESS. WAS DX WITH UTI AND PLACED ON MACROBID, GABAPENTIN AND KCL PT ADMITTED HERE 01/01-01/04/19 FOR UTI, SEPSIS, HYPONATREMIA, THRUSH RETURNED TO ER 01/15/19 FOR POSSIBLE SEPSIS, HYPONATREMIA AND HYPOTENSION--WAS TRANSFERRED TO [facility] NO BEDS AVAILABLE HERE. PT HAS BEEN ON ANTIBIOTICS WITH EACH ADMIT PT RECENTLY MOVED HERE FROM [place] TO BE CLOSER TO FAMILY PCP: [facility] [facility] ONCOLOGY: DR. MOODY Allergies and Home Medications Allergies Coded Allergies: codeine (Unverified Adverse Reaction, Mild, n/v, 11/14/11) morphine (Unverified Adverse Reaction, Mild, n/v, 11/14/11) Home Medications Gabapentin 300 Mg Capsule, 300 MG PO BID Prescribed by: SHANNAN AYALA on 01/04/19 1219 Metronidazole 500 Mg Tablet, 500 MG PO BID Prescribed by: SHANNAN AYALA on 01/04/19 1219 Oxycodone HCl/Acetaminophen 1 Each Tablet, 1 TAB PO q6hrs PRN for PAIN-MODERATE Cancer Related pain Prescribed by: SHANNAN AYALA on 01/04/19 1219 Prednisone 50 Mg Tab, 50 MG PO DAILY Prescribed by: SHANNAN AYALA on 01/04/19 1219 Promethazine HCl 25 Mg Tablet, 25 MG PO Q6H PRN for NAUSEA/VOMITING-2ND LINE, (Reported) Patient Home Medication List Home Medication List Reviewed: Yes Review of Systems Review of Systems Constitutional: chills; No dizziness; fever, malaise, weakness Respiratory: See HPI; Denies Cough, Denies Shortness of Air Cardiovascular: No Symptoms Reported; Denies Chest Pain, Denies Edema Gastrointestinal: See HPI, Abdominal Pain, Diarrhea, Nausea, Poor Appetite, Poor Fluid Intake; Denies Rectal Bleeding; Vomiting Genitourinary: See HPI Musculoskeletal: no symptoms reported Skin: no symptoms reported Psychiatric/Neurological: No Symptoms Reported Endocrine: No Symptoms Reported Hematologic/Lymphatic: No Symptoms Reported Past Behuaeo-Gkfdks-Eqrkav Hx Patient Social History Alcohol Use: Denies Use Recreational Drug Use: No Smoking Status: Current Everyday Smoker (1 PPD) Type Used: Cigarettes Recent Foreign Travel: No Contact w/Someone Who Travel: No Recent Infectious Disease Expo: No Recent Hopitalizations: No Immunizations Up To Date Tetanus Booster (TDap): Unknown Seasonal Allergies Seasonal Allergies: No Past Medical History Surgeries: Yes (PORT RIGHT CHEST) Hysterectomy, Orthopedic Respiratory: Yes (LUNG CANCER) COPD, Emphysema Currently Using CPAP: No Currently Using BIPAP: No Cardiac: No Neurological: Yes (CANCER-RELATED NEUROPATHY) Neuropathy 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 9.0oz. 60.299257gn; 20.9 BMI Method:Stated General Appearance: no apparent distress (BUT MOANING, LOOKS UNCOMFORTABLE), other (MILDLY LETHARGIC) HEENT: PERRL/EOMI, other (UPPER DENTURES IN PLACE, NO LOWER TEETH. ORAL MUCOSA SLIGHTLY DRY--NO THRUSH PRESENT) Respiratory: normal breath sounds, no respiratory distress, no accessory muscle use Cardiovascular: regular rate, rhythm, no murmur Gastrointestinal: normal bowel sounds, soft, no pulsatile mass; No distended, No guarding, No rebound; tenderness (MILD DIFFUSE LOWER ABDOMEN TENDERNESS) Extremities: normal inspection, no pedal edema, normal capillary refill Back: no CVA tenderness Neurologic/Psychiatric: cognos II-XII nml as tested, no motor/sensory deficits, alert, oriented x 3 Skin: normal color, warm/dry Focused Exam Lactate Level 01/28/19 13:40: Lactic Acid Level 1.54 Lactic Acid Level Laboratory Tests Test 01/28/19 13:40 Lactic Acid Level 1.54 MMOL/L (0.50-2.00) Progress/Results/Core Measures Results/Orders Lab Results Laboratory Tests Test 01/28/19 13:40 01/28/19 13:48 Range/Units White Blood Count 18.5 H 4.3-11.0 10^3/uL Red Blood Count 4.16 L 4.35-5.85 10^6/uL Hemoglobin 12.6 11.5-16.0 G/DL Hematocrit 39 35-52 % Mean Corpuscular Volume 95 80-99 FL Mean Corpuscular Hemoglobin 30 25-34 PG Mean Corpuscular Hemoglobin Concent 32 32-36 G/DL Red Cell Distribution Width 19.8 H 10.0-14.5 % Platelet Count 196 130-400 10^3/uL Mean Platelet Volume 8.9 7.4-10.4 FL Neutrophils (%) (Auto) 83 H 42-75 % Lymphocytes (%) (Auto) 11 L 12-44 % Monocytes (%) (Auto) 5 0-12 % Eosinophils (%) (Auto) 1 0-10 % Basophils (%) (Auto) 0 0-10 % Neutrophils # (Auto) 15.4 H 1.8-7.8 X 10^3 Lymphocytes # (Auto) 2.1 1.0-4.0 X 10^3 Monocytes # (Auto) 0.9 0.0-1.0 X 10^3 Eosinophils # (Auto) 0.1 0.0-0.3 10^3/uL Basophils # (Auto) 0.0 0.0-0.1 10^3/uL Neutrophils % (Manual) 81 % Lymphocytes % (Manual) 15 % Monocytes % (Manual) 1 % Reactive Lymphocytes 3 % Blood Morphology Comment NORMAL Prothrombin Time 12.6 12.2-14.7 SEC INR Comment 0.9 0.8-1.4 Activated Partial Thromboplast Time 26 24-35 SEC Sodium Level 136 135-145 MMOL/L Potassium Level 3.9 3.6-5.0 MMOL/L Chloride Level 101 98-107 MMOL/L Carbon Dioxide Level 24 21-32 MMOL/L Anion Gap 11 5-14 MMOL/L Blood Urea Nitrogen 16 7-18 MG/DL Creatinine 0.68 0.60-1.30 MG/DL Estimat Glomerular Filtration Rate > 60 BUN/Creatinine Ratio 24 Glucose Level 86 70-105 MG/DL Lactic Acid Level 1.54 0.50-2.00 MMOL/L Calcium Level 9.2 8.5-10.1 MG/DL Corrected Calcium 9.4 8.5-10.1 MG/DL Magnesium Level 1.5 L 1.8-2.4 MG/DL Total Bilirubin 0.5 0.1-1.0 MG/DL Aspartate Amino Transf (AST/SGOT) 17 5-34 U/L Alanine Aminotransferase (ALT/SGPT) 18 0-55 U/L Alkaline Phosphatase 63 40-136 U/L Total Protein 6.0 L 6.4-8.2 GM/DL Albumin 3.7 3.2-4.5 GM/DL Amylase Level 90 25-125 U/L Lipase 27 8-78 U/L Urine Color YELLOW Urine Clarity CLEAR Urine pH 5 5-9 Urine Specific Purlear 1.020 1.016-1.022 Urine Protein NEGATIVE NEGATIVE Urine Glucose (UA) NEGATIVE NEGATIVE Urine Ketones NEGATIVE NEGATIVE Urine Nitrite NEGATIVE NEGATIVE Urine Bilirubin NEGATIVE NEGATIVE Urine Urobilinogen NORMAL NORMAL MG/DL Urine Leukocyte Esterase NEGATIVE NEGATIVE Urine RBC (Auto) NEGATIVE NEGATIVE Urine RBC NONE /HPF Urine WBC NONE /HPF Urine Squamous Epithelial Cells RARE /HPF Urine Crystals NONE /LPF Urine Bacteria NEGATIVE /HPF Urine Casts NONE /LPF Urine Mucus NEGATIVE /LPF Urine Culture Indicated NO Urine Opiates Screen NEGATIVE NEGATIVE Urine Oxycodone Screen POSITIVE H NEGATIVE Urine Methadone Screen NEGATIVE NEGATIVE Urine Propoxyphene Screen NEGATIVE NEGATIVE Urine Barbiturates Screen NEGATIVE NEGATIVE Ur Tricyclic Antidepressants Screen NEGATIVE NEGATIVE Urine Phencyclidine Screen NEGATIVE NEGATIVE Urine Amphetamines Screen NEGATIVE NEGATIVE Urine Methamphetamines Screen NEGATIVE NEGATIVE Urine Benzodiazepines Screen NEGATIVE NEGATIVE Urine Cocaine Screen NEGATIVE NEGATIVE Urine Cannabinoids Screen NEGATIVE NEGATIVE Micro Results Microbiology 01/28/19 Fecal Leukocyte Stain - Final, Resulted 01/28/19 C. difficile GDH Antigen & Toxins - Final, Resulted 01/28/19 Stool Culture, Resulted Pending My Orders Orders - NAN MATAMOROS DO Ed Iv/Invasive Line Start (01/28/19 13:33) Catheter(Urinary) Insert & Ass 03,15 (01/28/19 13:33) Monitor-Rhythm Ecg Trace Only (01/28/19 13:33) Amylase (01/28/19 13:33) Cbc With Automated Diff (01/28/19 13:33) Comprehensive Metabolic Panel (01/28/19 13:33) Drug Screen Stat (Urine) (01/28/19 13:33) Lactic Acid Analyzer (01/28/19 13:33) Lipase (01/28/19 13:33) Magnesium (01/28/19 13:33) Protime With Inr (01/28/19 13:33) Partial Thromboplastin Time (01/28/19 13:33) Ua Culture If Indicated (01/28/19 13:33) Blood Culture (01/28/19 13:33) Ed Iv/Invasive Line Start (01/28/19 13:33) Lactated Ringers (Lr 1000 Ml Iv Solution (01/28/19 13:33) Ondansetron Injection (Zofran Injectio (01/28/19 13:45) Hyoscyamine Sl Tablet (Levsin Sl Tablet) (01/28/19 13:45) Stool Culture (01/28/19 13:33) Fecal Wbc (01/28/19 13:33) C Difficile Ag + Toxin A/B. (01/28/19 13:33) Isolation Central Supply Req (01/28/19 13:33) Manual Differential (01/28/19 13:40) Chest 1 View, Ap/Pa Only (01/28/19 13:53) Acetaminophen Tablet (Tylenol Tablet) (01/28/19 14:00) Vital Signs Adult Sepsis Patie Q15M (01/28/19 13:53) O2 (01/28/19 13:53) Remove Rings In Anticipation O (01/28/19 13:53) Ct Abdomen/Pelvis W (01/28/19 14:17) Magnesium 1 Gm/100 Ml Ivpb (Magnesium West (01/28/19 14:30) Iohexol Injection (Omnipaque 350 Mg/Ml 1 (01/28/19 15:30) Received Contrast (Hold Metformin- Contr (01/28/19 15:30) Sodium Chloride Flush (Catheter Flush Sy (01/28/19 15:30) Ns (Ivpb) (Sodium Chloride 0.9% Ivpb Bag (01/28/19 15:30) Medications Given in ED Current Medications Medications Dose Ordered Sig/Omari Route Start Time Stop Time Status Last Admin Dose Admin Acetaminophen 1,000 mg ONCE PRN PO 01/28/19 14:00 01/28/19 14:33 DC 01/28/19 14:33 1,000 MG Hyoscyamine Sulfate 0.25 mg ONCE ONCE SL 01/28/19 13:45 01/28/19 13:46 DC 01/28/19 13:45 0.25 MG Iohexol 100 ml ONCE ONCE IV 01/28/19 15:30 01/28/19 15:31 DC 01/28/19 15:21 73 ML Lactated Ringer's 1,000 ml @ 0 mls/hr Q0M ONCE IV 01/28/19 13:33 01/28/19 13:37 DC 01/28/19 13:49 1,000 MLS/HR Magnesium Sulfate/ Dextrose 100 ml @ 100 mls/hr ONCE ONCE IV 01/28/19 14:30 01/28/19 15:29 DC 01/28/19 14:33 100 MLS/HR Ondansetron HCl 8 mg ONCE ONCE IVP 01/28/19 13:45 01/28/19 13:46 DC 01/28/19 13:49 8 MG Sodium Chloride 10 ml NEEDED PRN IV 01/28/19 15:30 01/28/19 15:21 10 ML Sodium Chloride 100 ml ONCE ONCE IV 01/28/19 15:30 01/28/19 15:31 DC 01/28/19 15:21 80 ML Vital Signs/I&O 01/28/19 13:30 Temp 100.1 Pulse 126 Resp 18 B/P (MAP) 106/76 (86) Pulse Ox 96 Blood Pressure Mean: 76 Progress Progress Note : Progress Note PT WAS INCONTINENT OF STOOL AND URINE ON ARRIVAL PT STATES SHE FEELS MUCH BETTER AFTER FLUIDS AND MEDICATIONS NO VOMITING AND NAUSEA RESOLVED NO FURTHER STOOLS DURING ER STAY BP UP AT TIME OF ADMIT. Diagnostic Imaging Comments CT ABDOMEN/PELVIS--MARKED SIGMOID COLITIS, WITH MILDER COLITIS OF DESCENDING AND TRANSVERSE COLON--PER RADIOLOGIST REPORT AT 1551 CXR=--LLL LUNG MASS UNCHANGED. NO ACUTE PROCESS, PER RADIOLOGIST REPORT AT 1551 Reviewed: Reviewed by Me Departure Communication (Admissions) 1558--SPOKE WITH DR. CHENG, HOSPITALIST NETWORK APPLICATIONS SPECIALIST FOR [facility]. ACCEPTS PT FOR ADMIT. WILL CONSULT PULMONOLOGY, SURGERY, ONCOLOGY 1600--SPOKE WITH DR. REDMAN, SURGEON NETWORK APPLICATIONS SPECIALIST, FOR CONSULT. HE ADVISES CIPRO + FLAGYL AFTER STOOL SPECIMEN OBTAINED PT AT HIGHER RISK FOR C. DIFFICILE COLITIS DUE TO RECENT HOSPITALIZATIONS WITH IV ANTIBIOTICS. Impression Primary Impression: Colitis Additional Impressions: Lung cancer Sepsis Neuropathy associated with cancer Dehydration Hypomagnesemia Disposition: ADMITTED INPATIENT Condition: Improved Admissions Decision to Admit Reason: Admit from ER (General) Decision to Admit/Date: Jan 28, 2019 Time/Decision to Admit Time: 16:00 Departure-Patient Inst. Referrals: NO,LOCAL PHYSICIAN (PCP) Primary Care Physician NAN MATAMOROS DO Jan 28, 2019 18:14
[2019-01-28 19:00] VITALS: BP 105/67
[2019-01-28] MEDS ORDERED: D5 1/2 NS W/KCL 20 MEQ/L 1,000 ML IV ONE (19:23)
[2019-01-28] MEDS ORDERED: metroNIDAZOLE 500MG/100ML IVPB 100 ML ONE (19:23)
--- OUTSIDE RECORDS SUMMARY | 2019-01-28 19:42 | XMS REPORT | Continuity of Care Document ---
Author Organization Unknown Address Unknown Allergies There is no data. Medications There is no data. Problems There is no data. Procedures There is no data. Results There is no data. Encounters ACCT No. Visit Date/Time Discharge Status Pt. Type Provider Facility Loc./Unit Complaint [id number] 01/14/2019 12:30:00 01/14/2019 23:59:59 CLS Outpatient ESPINOZA CERVANTES [facility]
[2019-01-28] MEDS ORDERED: OMEP40CA36 PO (19:46)
[2019-01-28 20:00] VITALS: BP 94/49
[2019-01-28] MEDS ORDERED: PROMETHAZINE 25 MG (PHENERGAN) TAB PO PRN (20:00)
[2019-01-28] MEDS ORDERED: ONDANSETRON 4 MG/2 ML (SDV) Z0FRAN IVP PRN (20:00)
[2019-01-28] MEDS ORDERED: oxyCODONE/APAP 5/325MG (PERCOCET 5) TABLET ONE (20:03)
[2019-01-28] MEDS ORDERED: GABAPENTIN 600 MG (NEURONTIN) TAB ONE (20:04)
[2019-01-28] MEDS: metroNIDAZOLE 500MG/100ML IVPB 100 ML IV SCH (20:05)
[2019-01-28] MEDS: oxyCODONE/APAP 5/325MG (PERCOCET 5) TABLET PO PRN (20:10)
[2019-01-28] MEDS: GABAPENTIN 600 MG (NEURONTIN) TAB PO SCH (20:10)
[2019-01-28] MEDS: D5 1/2 NS W/KCL 20 MEQ/L 1,000 ML IV SCH (21:04)
[2019-01-28] MEDS ORDERED: NICOTINE 21 MG (NICODERM) PATCH TD ONE (21:15)
--- NOTE | 2019-01-28 21:26 | Consultation (Surgery) ---
History of Present Illness History of Present Illness Patient Consulted On(quincy/time) 01/28/19 21:19 Time Seen by Provider: 19:01 History of Present Illness Surgery asked to consult regarding Abdominal pain and Colitis. HPI per ED: PT ARRIVES VIA EMS FROM HOME C/O NAUSEA/VOMITING/DIARRHEA AND LOWER ABDOMINAL CRAMPING SINCE LAST NIGHT STATES SHE HAS VOMITED X 3 TODAY, IN ADDITION TO DRY HEAVES C/O DIARRHEA "EVERY 15-30 MINUTES"--HAS HAD > 20 STOOLS TODAY. NO BLACK/BLOODY/TARRY STOOLS C/O DIFFUSE LOWER ABDOMINAL PAIN AND CRAMPING HAD SUBJECTIVE FEVER/CHILLS--TEMP IS 100.2 ON ARRIVAL HERE C/O DECREASED URINE OUTPUT NO SICK CONTACTS OR SUSPICIOUS FOODS PT HAS BEEN TREATED FOR LUNG CANCER, WITH LAST CHEMO APPROXIMATELY 8 WEEKS AGO PT SEEN HERE 12/28/18 FOR 1 1/2 MONTHS OF GENERALIZED PAIN, EDEMA, WEAKNESS. WAS DX WITH UTI AND PLACED ON MACROBID, GABAPENTIN AND KCL PT ADMITTED HERE 01/01-01/04/19 FOR UTI, SEPSIS, HYPONATREMIA, THRUSH RETURNED TO ER 01/15/19 FOR POSSIBLE SEPSIS, HYPONATREMIA AND HYPOTENSION--WAS TRANSFERRED TO [facility] NO BEDS AVAILABLE HERE. PT HAS BEEN ON ANTIBIOTICS WITH EACH ADMIT When I spoke to pt she stated she has never had anything like this before. Her biggest complaint is the diarrhea, the abdominal pain "is not that bad". She states she has never had a colonoscopy. She rated the pain as 5 out of 10 on a 1-10 scale. Allergies and Home Medications Allergies Coded Allergies: codeine (Unverified Adverse Reaction, Mild, n/v, 11/14/11) morphine (Unverified Adverse Reaction, Mild, n/v, 11/14/11) Home Medications Gabapentin 300 Mg Capsule, 300 MG PO BID Prescribed by: SHANNAN AYALA on 01/04/19 1219 Metronidazole 500 Mg Tablet, 500 MG PO BID Prescribed by: SHANNAN AYALA on 01/04/19 1219 Oxycodone HCl/Acetaminophen 1 Each Tablet, 1 TAB PO q6hrs PRN for PAIN-MODERATE Cancer Related pain Prescribed by: SHANNAN AYALA on 01/04/19 1219 Prednisone 50 Mg Tab, 50 MG PO DAILY Prescribed by: SHANNAN AYALA on 01/04/19 1219 Promethazine HCl 25 Mg Tablet, 25 MG PO Q6H PRN for NAUSEA/VOMITING-2ND LINE, (Reported) Patient Home Medication List Home Medication List Reviewed: Yes Past Wprumix-Fhxccz-Ioxfjz Hx Patient Social History Alcohol Use: Denies Use Recreational Drug Use: No Smoking Status: Current Everyday Smoker (1 PPD) Type Used: Cigarettes Recent Foreign Travel: No Contact w/Someone Who Travel: No Recent Infectious Disease Expo: No Recent Hopitalizations: No Immunizations Up To Date Tetanus Booster (TDap): Unknown Seasonal Allergies Seasonal Allergies: No Surgeries History of Surgeries: Yes (PORT RIGHT CHEST) Surgeries: Hysterectomy, Orthopedic Respiratory History of Respiratory Disorde: Yes (LUNG CANCER) Respiratory Disorders: COPD, Emphysema Cardiovascular History of Cardiac Disorders: No Neurological History of Neurological Disord: Yes (CANCER-RELATED NEUROPATHY) Neurological Disorders: Neuropathy Reproductive System [employer] History: Hysterectomy, Menopausal Genitourinary History of Genitourinary Disor: Yes Genitourinary Disorders: Bladder Infection Gastrointestinal History of Gastrointestinal Di: No Musculoskeletal History of Musculoskeletal Dis: No Endocrine History of Endocrine Disorders: No HEENT History of HEENT Disorders: No Cancer History of Cancer: Yes Cancer: Lung Psychosocial History of Psychiatric Problem: No Integumentary History of Skin or Integumenta: No Blood Transfusions History of Blood Disorders: No Adverse Reaction to a Blood Tr: No Family Medical History Significant Family History: Cancer (mother had breast cancer), CAD Over 55 Years Old (father and grandfather), Diabetes (father), Hypertension Review of Systems-General Constitutional: chills, diaphoresis, malaise, weakness EENTM: No blurred vision, No double vision, No mouth pain, No mouth swelling, No epistaxis Respiratory: No cough, No hemoptysis, No short of breath Cardiovascular: No chest pain, No edema, No palpitations Gastrointestinal: see HPI, abdominal pain; No jaundice; nausea, vomiting Genitourinary: No dysuria, No frequency, No hematuria : No Musculoskeletal: joint pain, joint swelling, muscle pain, muscle stiffness Skin: No change in color, No change in hair/nails Psychiatric/Neurological: Denies Anxiety; Numbness, Paresthesia, Tingling Other pt denies any abnormal bleeding or bruising Physical Exam-General Problems Physical Exam Vital Signs Vital Signs - First Documented 01/28/19 01/28/19 13:30 17:15 Temp 100.1 Pulse 126 Resp 18 B/P (MAP) 106/76 (86) Pulse Ox 96 O2 Delivery Room Air Capillary Refill : Less Than 3 Seconds General Appearance: mild distress, other (chronically ill appearing) Eyes: Bilateral Eye PERRL, Bilateral Eye EOMI HEENT: pharynx normal; No scleral icterus (R), No scleral icterus (L); other (pt has alopecia, probably secondary to chemo) Neck: non-tender, supple Respiratory: chest non-tender, lungs clear, normal breath sounds, no respiratory distress, no accessory muscle use Cardiovascular: no murmur, tachycardia Gastrointestinal: normal bowel sounds, soft, no organomegaly, no pulsatile mass, tenderness (LLQ mostly, but mildly tender diffusely), hernia (small umbilical hernia) Back: no CVA tenderness, no vertebral tenderness Extremities: normal range of motion, non-tender, normal inspection, no pedal edema Neurologic/Psychiatric: physician/allergy/immunology II-XII nml as tested, alert, normal mood/affect, oriented x 3 Skin: normal color, warm/dry Lymphatic: no adenopathy (neck, axilla or groin) Data Review Labs Laboratory Tests 01/28/19 13:40: White Blood Count 18.5H, Red Blood Count 4.16L, Hemoglobin 12.6, Hematocrit 39, Mean Corpuscular Volume 95, Mean Corpuscular Hemoglobin 30, Mean Corpuscular Hemoglobin Concent 32, Red Cell Distribution Width 19.8H, Platelet Count 196, Mean Platelet Volume 8.9, Neutrophils (%) (Auto) 83H, Lymphocytes (%) (Auto) 11L , Monocytes (%) (Auto) 5, Eosinophils (%) (Auto) 1, Basophils (%) (Auto) 0, Neutrophils # (Auto) 15.4H, Lymphocytes # (Auto) 2.1, Monocytes # (Auto) 0.9, Eosinophils # (Auto) 0.1, Basophils # (Auto) 0.0, Neutrophils % (Manual) 81, Lymphocytes % (Manual) 15, Monocytes % (Manual) 1, Reactive Lymphocytes 3, Blood Morphology Comment NORMAL, Prothrombin Time 12.6, INR Comment 0.9, Activated Partial Thromboplast Time 26, Sodium Level 136, Potassium Level 3.9, Chloride Level 101, Carbon Dioxide Level 24, Anion Gap 11, Blood Urea Nitrogen 16, Creatinine 0.68, Estimat Glomerular Filtration Rate > 60, BUN/Creatinine Ratio 24, Glucose Level 86, Lactic Acid Level 1.54, Calcium Level 9.2, Corrected Calcium 9.4, Magnesium Level 1.5L, Total Bilirubin 0.5, Aspartate Amino Transf (AST/SGOT) 17, Alanine Aminotransferase (ALT/SGPT) 18, Alkaline Phosphatase 63, Total Protein 6.0L, Albumin 3.7, Amylase Level 90, Lipase 27 01/28/19 13:48: Urine Color YELLOW, Urine Clarity CLEAR, Urine pH 5, Urine Specific [place] 1.020, Urine Protein NEGATIVE, Urine Glucose (UA) NEGATIVE, Urine Ketones NEGATIVE, Urine Nitrite NEGATIVE, Urine Bilirubin NEGATIVE, Urine Urobilinogen NORMAL, Urine Leukocyte Esterase NEGATIVE, Urine RBC (Auto) NEGATIVE, Urine RBC NONE, Urine WBC NONE, Urine Squamous Epithelial Cells RARE, Urine Crystals NONE, Urine Bacteria NEGATIVE, Urine Casts NONE, Urine Mucus NEGATIVE, Urine Culture Indicated NO, Urine Opiates Screen NEGATIVE, Urine Oxycodone Screen POSITIVEH, Urine Methadone Screen NEGATIVE, Urine Propoxyphene Screen NEGATIVE, Urine Barbiturates Screen NEGATIVE, Ur Tricyclic Antidepressants Screen NEGATIVE, Urine Phencyclidine Screen NEGATIVE, Urine Amphetamines Screen NEGATIVE, Urine Methamphetamines Screen NEGATIVE, Urine Benzodiazepines Screen NEGATIVE, Urine Cocaine Screen NEGATIVE, Urine Cannabinoids Screen NEGATIVE Microbiology 01/28/19 Fecal Leukocyte Stain - Final, Resulted 01/28/19 C. difficile GDH Antigen & Toxins - Final, Resulted 01/28/19 Stool Culture, Resulted Pending Assessment/Plan Assessment/Plan Assessment/Plan Colitis Diarrhea ?? Cholecystitis Lung CA Hx of UTI Plan is to get stool sample and then start IV ABX (which was done). Pt will need pain control, IVF and anti-emetics. Will monitor abdomen and labs, pt may need a colonoscopy to look at sigmoid colon. I reviewed the CT films (looking only at the colon and the GB), her Sigmoid colon is very edematous but did not see perforation, free air for free fluid. Her GB is also very distended and fuzzy; which may mean she has some sludge in it. Can get and US of the GB on wednesday when there is tech available. [facility]. Clinical Quality Measures DVT/VTE Risk/Contraindication: Risk Factor Score Per Nursin RFS Level Per Nursing on Admit: 4+=Very High ELODIA REDMAN DO Jan 28, 2019 21:26
[2019-01-29] VITALS: BP 90/66
[2019-01-29] MEDS: D5 1/2 NS W/KCL 20 MEQ/L 1,000 ML IV SCH ×6 (03:25→23:26)
[2019-01-29] MEDS: oxyCODONE/APAP 5/325MG (PERCOCET 5) TABLET PO PRN ×3 (03:25→19:10)
[2019-01-29 03:48] LABS: BASOPHILS % (AUTO) 0 % (0-10); EOSINOPHILS # (AUTO) 0.2 10^3/uL (0.0-0.3); EOSINOPHILS % (AUTO) 2 % (0-10); HEMATOCRIT 33 % (35-52); HEMOGLOBIN 10.7 G/DL (11.5-16.0); LYMPHOCYTES # (AUTO) 2.4 X 10^3 (1.0-4.0); LYMPHOCYTES % (AUTO) 22 % (12-44); MEAN CORPUSCULAR HEMOGLOBIN 31 PG (25-34); MEAN CORPUSCULAR HGB CONC 32 G/DL (32-36); MEAN CORPUSCULAR VOLUME 95 FL (80-99); MEAN PLATELET VOLUME 9.1 FL (7.4-10.4); MONOCYTES # (AUTO) 0.7 X 10^3 (0.0-1.0); MONOCYTES % (AUTO) 6 % (0-12); NEUTROPHILS # (AUTO) 7.6 X 10^3 (1.8-7.8); NEUTROPHILS % (AUTO) 70 % (42-75); PLATELET COUNT 154 10^3/uL (130-400); RED CELL DISTRIBUTION WIDTH 19.5 % (10.0-14.5); WHITE BLOOD COUNT 10.9 10^3/uL (4.3-11.0)
[2019-01-29 04:09] LABS: ALANINE AMINOTRANSFERASE 16 U/L (0-55); ALBUMIN 2.8 GM/DL (3.2-4.5); ALKALINE PHOSPHATASE 49 U/L (40-136); BILIRUBIN,TOTAL 0.7 MG/DL (0.1-1.0); BUN/CREATININE RATIO 14; CALCIUM 8.2 MG/DL (8.5-10.1); CARBON DIOXIDE 23 MMOL/L (21-32); CHLORIDE 102 MMOL/L (98-107); CREATININE SERUM 0.64 MG/DL (0.60-1.30); GFR ESTIMATED > 60; GLUCOSE 80 MG/DL (70-105); MAGNESIUM 1.6 MG/DL (1.8-2.4); POTASSIUM 4.2 MMOL/L (3.6-5.0); SODIUM 133 MMOL/L (135-145); TOTAL PROTEIN 4.8 GM/DL (6.4-8.2)
[2019-01-29] MEDS: predniSONE 20 MG TAB PO SCH (06:44)
[2019-01-29] MEDS: LACTOBACILLUS ACIDOPHILUS (PROBIOTIC) CAPSULE PO SCH ×3 (06:44→17:11)
[2019-01-29] MEDS: metroNIDAZOLE 500MG/100ML IVPB 100 ML IV SCH ×4 (06:44→23:26)
[2019-01-29 08:00] VITALS: BP 84/42
[2019-01-29] MEDS: CIPROFLOXACIN IV 400MG/200ML 200 ML IV SCH ×2 (08:20→20:42)
[2019-01-29] MEDS: NICOTINE 21 MG (NICODERM) PATCH TD SCH (08:22)
[2019-01-29] MEDS: GABAPENTIN 600 MG (NEURONTIN) TAB PO SCH ×3 (08:22→20:42)
[2019-01-29] MEDS: HYOSCYAMINE 0.125 MG (LEVSIN) TAB PO PRN ×3 (11:12→23:25)
[2019-01-29 12:00] VITALS: BP 101/75
--- NOTE | 2019-01-29 13:40 | History & Physical-Hospitalist ---
History of Present Illness HPI/Chief Complaint Chief complaint: Colitis with fever History of present illness: This is a 63-year-old white female clinic patient with a past medical history of lung cancer who continues to smoke last had chemotherapy 8 weeks ago who presented to the ER with abdominal discomfort with severe diarrhea. CT scan revealed very edematous bowel Dr. Gilbert was consulted patient was empirically placed on treatment for colitis but she has had multiple exposures to antibiotics recently giving rise to suspicion of C. difficile colitis. She was seen by Dr. Gilbert and was monitored closely through the night and abdominal pain has improved after a small bowel movement. She likely will be able to go downstairs to fourth floor to continue treatment plan. Ultrasound will be obtained tomorrow to check gallbladder that could possibly show some thickened wall may be with sludge. Source: patient Exam Limitations: no limitations Date Seen 01/29/19 Time Seen by a Provider: 12:30 Attending Physician Tish Salcedo DO PCP No,Local Physician Referring Physician Date of Admission Jan 28, 2019 at 16:00 Home Medications & Allergies Home Medications Reviewed patient Home Medication Reconciliation performed by pharmacy medication reconciliations r&d lab technician and/or nursing. Patients Allergies have been reviewed. Allergies Allergies Coded Allergies codeine (Unverified Adverse Reaction, Mild, n/v, 11/14/11) morphine (Unverified Adverse Reaction, Mild, n/v, 11/14/11) Past Akkeacj-Ulomoe-Wzpjrn Hx Past Med/Social Hx: Reviewed Nursing Past Med/Soc Hx, Reviewed and Corrections made Patient Social History Marrital Status: single Employed/Student: unemployed Alcohol Use: Denies Use Recreational Drug Use: No Smoking Status: Current Everyday Smoker (1 PPD) Type Used: Cigarettes Recent Foreign Travel: No Contact w/other who traveled: No Recent Hopitalizations: No Recent Infectious Disease Expo: No Immunizations Up To Date Tetanus Booster (TDap): Unknown Seasonal Allergies Seasonal Allergies: No Past Medical History Surgeries: Hysterectomy, Orthopedic Respiratory: COPD Currently Using CPAP: No Currently Using BIPAP: No Neurological: Neuropathy Hysterectomy, Menopausal Genitourinary: Bladder Infection Cancer: Lung What Type of Treatment Did You: Chemotherapy History of Blood Disorders: No Adverse Reaction to Blood Olguin: No Family History Cancer (mother had breast cancer), CAD Over 55 Years Old (father and grandfather), Diabetes (father), Hypertension Review of Systems Constitutional: see HPI, malaise, weakness EENTM: no symptoms reported Respiratory: dyspnea on exertion Cardiovascular: no symptoms reported Gastrointestinal: abdominal pain (LLQ), diarrhea, loss of appetite, nausea, vomiting Genitourinary: no symptoms reported Musculoskeletal: no symptoms reported Skin: no symptoms reported Psychiatric/Neurological: No Symptoms Reported All Other Systems Reviewed Negative Unless Noted: Yes Physical Exam Physical Exam Vital Signs Vital Signs - First Documented 01/28/19 01/28/19 13:30 17:15 Temp 100.1 Pulse 126 Resp 18 B/P (MAP) 106/76 (86) Pulse Ox 96 O2 Delivery Room Air Capillary Refill : Less Than 3 Seconds Height, Weight, BMI Height: 5'7.00" Weight: 139lbs. 9.0oz. 63.345936hh; 20.9 BMI Method:Stated General Appearance: No Apparent Distress, WD/WN, Anxious, Chronically ill, Thin Eyes: Right Eye Normal Inspection, Right Eye PERRL HEENT: PERRL/EOMI, Normal ENT Inspection, Pharynx Normal, Moist Mucous Membranes Neck: Full Range of Motion, Normal Inspection, Non Tender Respiratory: Chest Non Tender, Lungs Clear, Normal Breath Sounds, No Accessory Muscle Use, No Respiratory Distress, Decreased Breath Sounds Cardiovascular: Regular Rate, Rhythm, No Edema, No Gallop, No JVD, No Murmur, Normal Peripheral Pulses Gastrointestinal: Normal Bowel Sounds, No Organomegaly, No Pulsatile Mass, Non Tender, Soft Back: Normal Inspection, No CVA Tenderness, No Vertebral Tenderness Extremity: Normal Capillary Refill, Normal Inspection, Normal Range of Motion, Non Tender, No Calf Tenderness, No Pedal Edema Neurologic/Psychiatric: Alert, Oriented x3, No Motor/Sensory Deficits, Normal Mood/Affect Skin: Normal Color, Warm/Dry Lymphatic: No Adenopathy Results Results/Procedures Labs Laboratory Tests 01/28/19 13:40 01/29/19 03:30 Patient resulted labs reviewed. Assessment/Plan Admission Diagnosis Assessment: Acute colitis placed on Cipro and Flagyl less suspicion of C. difficile colitis since small bowel movement today was formed Lung cancer last chemotherapy 8 weeks ago Continued smoker Frail status Leukocytosis now resolved Plan: Monitor labs Transfer to fourth floor Appreciate Dr. Gilbert expertise Oncology and pulmonology appreciated Long-term prognosis poor Admission Status: Inpatient Order (span 2 midnights) Reason for Inpatient Admission: Severe colitis in lung cancer patient Diagnosis/Problems Diagnosis/Problems (1) Colitis Status: Acute (2) Sepsis Status: Acute Qualifiers: Sepsis type: sepsis due to unspecified organism Qualified Codes: A41.9 - Sepsis, unspecified organism (3) Lung cancer Status: Chronic Qualifiers: Laterality: unspecified laterality Lung location: unspecified part of lung Qualified Codes: C34.90 - Malignant neoplasm of unspecified part of unspecified bronchus or lung (4) Neuropathy associated with cancer Status: Chronic (5) Dehydration Status: Acute (6) Hyponatremia Status: Acute (7) Nausea Status: Acute Clinical Quality Measures DVT/VTE Risk/Contraindication: Risk Factor Score Per Nursin RFS Level Per Nursing on Admit: 4+=Very High TISH SALCEDO DO Jan 29, 2019 13:40
--- NOTE | 2019-01-29 14:25 | Progress Note ---
Subjective Time Seen by a Provider: 13:01 Subjective/Events-last exam Pt seen and examined, states she feels better than yesterday. She had a small BM and thinks pain is better. Review of Systems General: No Chills, No Night Sweats Pulmonary: Dyspnea; No Cough; Pleuritic Chest Pain Cardiovascular: No: Chest Pain, Palpitations Gastrointestinal: Abdominal Pain; No: Nausea, Vomiting Focused Exam Lactate Level 01/28/19 13:40: Lactic Acid Level 1.54 Objective Exam Vital Signs Date Time Temp Pulse Resp B/P (MAP) Pulse Ox O2 Delivery O2 Flow Rate FiO2 01/29/19 13:00 88 01/29/19 12:00 96 Room Air 01/29/19 11:45 96.0 01/29/19 08:30 96 Room Air 01/29/19 08:30 98.2 01/29/19 08:00 87 30 84/42 (56) 95 Room Air 01/29/19 07:00 91 01/29/19 04:00 97.0 01/29/19 04:00 96 Room Air 01/29/19 01:00 97 01/29/19 00:00 96 Room Air 01/29/19 00:00 90 23 90/66 (74) 95 Room Air 01/28/19 20:00 100 18 94/49 (64) 96 Room Air 01/28/19 20:00 96 Room Air 01/28/19 19:45 96.9 01/28/19 19:00 87 24 105/67 (80) 94 Room Air 01/28/19 18:00 103 01/28/19 17:30 101 22 105/62 (76) 97 Room Air 01/28/19 17:15 Room Air 01/28/19 17:04 90 18 96/57 (70) 99 I & O 01/29/19 07:00 Intake Total 3450 ml Output Total 1650 ml Balance 1800 ml Capillary Refill : Less Than 3 Seconds General Appearance: No Apparent Distress, Chronically ill Respiratory: Chest Non Tender, Lungs Clear, Normal Breath Sounds, No Accessory Muscle Use, No Respiratory Distress Cardiovascular: Regular Rate, Rhythm, No Murmur Gastrointestinal: normal bowel sounds, soft, no organomegaly, no pulsatile mass, tenderness (LLQ only now), hernia (small umbilical hernia) Neurologic/Psychiatric: Alert, Oriented x3, Sensory Deficit (Neuropathy) Results Lab Laboratory Tests 01/29/19 03:30: White Blood Count 10.9, Red Blood Count 3.51L, Hemoglobin 10.7L, Hematocrit 33L, Mean Corpuscular Volume 95, Mean Corpuscular Hemoglobin 31, Mean Corpuscular Hemoglobin Concent 32, Red Cell Distribution Width 19.5H, Platelet Count 154, Mean Platelet Volume 9.1, Neutrophils (%) (Auto) 70, Lymphocytes (%) (Auto) 22, Monocytes (%) (Auto) 6, Eosinophils (%) (Auto) 2, Basophils (%) (Auto) 0, Neutrophils # (Auto) 7.6, Lymphocytes # (Auto) 2.4, Monocytes # (Auto) 0.7, Eosinophils # (Auto) 0.2, Basophils # (Auto) 0.0, Sodium Level 133L, Potassium Level 4.2, Chloride Level 102, Carbon Dioxide Level 23, Anion Gap 8, Blood Urea Nitrogen 9, Creatinine 0.64, Estimat Glomerular Filtration Rate > 60, BUN/Creatinine Ratio 14, Glucose Level 80, Calcium Level 8.2L, Corrected Calcium 9.2, Magnesium Level 1.6L, Total Bilirubin 0.7, Aspartate Amino Transf (AST/SGOT) 17, Alanine Aminotransferase (ALT/SGPT) 16, Alkaline Phosphatase 49, Total Protein 4.8L, Albumin 2.8L Microbiology 01/28/19 Fecal Leukocyte Stain - Final, Resulted 01/28/19 C. difficile GDH Antigen & Toxins - Final, Resulted 01/28/19 Stool Culture, Resulted Pending Assessment/Plan Assessment/Plan Assessment/Plan Colitis Diarrhea ?? Cholecystitis Lung CA Hx of UTI Will cotinue IV ABX and wait for stool study results. Will continue NPO, pain control, IVF and anti-emetics. Will monitor abdomen and labs; pt may need a colonoscopy to look at sigmoid colon, but looks like we may be able to do this as an outpt. Still plan on US of the GB on Wednesday when there is tech available. [facility]. Clinical Quality Measures DVT/VTE Risk/Contraindication: Risk Factor Score Per Nursin RFS Level Per Nursing on Admit: 4+=Very High ELODIA REDAMN DO Jan 29, 2019 14:25
[2019-01-29 16:00] VITALS: BP 122/65
[2019-01-29 20:00] VITALS: BP 111/75
[2019-01-30 00:35] VITALS: BP 112/77
[2019-01-30] MEDS ORDERED: ACETAMINOPHEN 500 MG TAB (TYLENOL) ONE (00:35)
[2019-01-30] MEDS: ACETAMINOPHEN 500 MG TAB (TYLENOL) PO PRN ×4 (00:49→21:36)
[2019-01-30] MEDS: D5 1/2 NS W/KCL 20 MEQ/L 1,000 ML IV SCH ×4 (03:19→16:32)
[2019-01-30] MEDS: HYOSCYAMINE 0.125 MG (LEVSIN) TAB PO PRN (03:20)
[2019-01-30] MEDS: oxyCODONE/APAP 5/325MG (PERCOCET 5) TABLET PO PRN ×3 (03:20→18:01)
[2019-01-30 03:51] LABS: BASOPHILS % (AUTO) 0 % (0-10); EOSINOPHILS # (AUTO) 0.2 10^3/uL (0.0-0.3); EOSINOPHILS % (AUTO) 3 % (0-10); HEMATOCRIT 33 % (35-52); HEMOGLOBIN 10.6 G/DL (11.5-16.0); LYMPHOCYTES # (AUTO) 2.1 X 10^3 (1.0-4.0); LYMPHOCYTES % (AUTO) 28 % (12-44); MEAN CORPUSCULAR HEMOGLOBIN 30 PG (25-34); MEAN CORPUSCULAR HGB CONC 32 G/DL (32-36); MEAN CORPUSCULAR VOLUME 95 FL (80-99); MEAN PLATELET VOLUME 8.8 FL (7.4-10.4); MONOCYTES # (AUTO) 0.6 X 10^3 (0.0-1.0); MONOCYTES % (AUTO) 8 % (0-12); NEUTROPHILS # (AUTO) 4.5 X 10^3 (1.8-7.8); NEUTROPHILS % (AUTO) 60 % (42-75); PLATELET COUNT 165 10^3/uL (130-400); RED CELL DISTRIBUTION WIDTH 18.9 % (10.0-14.5); WHITE BLOOD COUNT 7.4 10^3/uL (4.3-11.0)
[2019-01-30 04:00] VITALS: BP 131/93
[2019-01-30 04:16] LABS: ALANINE AMINOTRANSFERASE 16 U/L (0-55); ALBUMIN 3.2 GM/DL (3.2-4.5); ALKALINE PHOSPHATASE 56 U/L (40-136); BILIRUBIN,TOTAL 0.3 MG/DL (0.1-1.0); BUN/CREATININE RATIO 11; CALCIUM 8.9 MG/DL (8.5-10.1); CARBON DIOXIDE 22 MMOL/L (21-32); CHLORIDE 111 MMOL/L (98-107); CREATININE SERUM 0.62 MG/DL (0.60-1.30); GFR ESTIMATED > 60; GLUCOSE 114 MG/DL (70-105); POTASSIUM 4.3 MMOL/L (3.6-5.0); SODIUM 142 MMOL/L (135-145); TOTAL PROTEIN 5.6 GM/DL (6.4-8.2)
[2019-01-30] MEDS: metroNIDAZOLE 500MG/100ML IVPB 100 ML IV SCH ×3 (06:09→17:59)
[2019-01-30] MEDS: predniSONE 20 MG TAB PO SCH (06:10)
[2019-01-30] MEDS: LACTOBACILLUS ACIDOPHILUS (PROBIOTIC) CAPSULE PO SCH ×3 (06:10→16:31)
[2019-01-30 08:00] VITALS: BP 119/74
[2019-01-30] MEDS: CIPROFLOXACIN IV 400MG/200ML 200 ML IV SCH ×2 (08:03→21:32)
[2019-01-30] MEDS: NICOTINE 21 MG (NICODERM) PATCH TD SCH (08:03)
[2019-01-30] MEDS: GABAPENTIN 600 MG (NEURONTIN) TAB PO SCH ×3 (08:03→21:32)
[2019-01-30] MEDS ORDERED: GBPN600T PO (09:26)
[2019-01-30] MEDS ORDERED: OMEP40CA36 PO (09:26)
[2019-01-30] MEDS ORDERED: FLUC150T2 PO (09:26)
[2019-01-30] MEDS ORDERED: PRD10T PO (09:26)
[2019-01-30] MEDS ORDERED: NYST1000 PO (09:26)
[2019-01-30] MEDS ORDERED: OXYC-471 PO (09:26)
--- NOTE | 2019-01-30 09:31 | Diagnostic Imaging Report ---
PROCEDURE: US Gallbladder. TECHNIQUE: Multiple real-time grayscale images were obtained over the right upper quadrant in various projections. INDICATION: Distended gallbladder. Findings: Comparison is CT dated 01/28/2019. Pancreas is normal. Liver is normal in size and echogenicity without surface nodularity. No focal liver lesions are seen, except a 2.8 cm cyst in the right liver. Maximal dimension of the liver is 16 cm. Right kidney is normal. The right kidney measures 11.5 cm in maximal dimension. The gallbladder is decompressed compared to prior exam. The wall is mildly thickened measuring 4 mm, possibly related to decompression. Common duct is not identified. No stones are seen. Visualized portions of the aorta and inferior vena cava are normal. Impression: 1. Decreased distention of the gallbladder which appears mildly thickwalled. No stones are seen. Findings are unlikely to reflect acute cholecystitis. If there is persistent clinical concern for cholecystitis, a nuclear medicine scintigraphy scan of the gallbladder can be performed. Dictated by: Dictated on workstation # [id number]
--- NOTE | 2019-01-30 09:37 | NUR ---
WENT OVER THE EXT MED HX WITH THE PATIENT AND SHE VERIFIED HOW SHE TAKES THEM. SHE FILLED THE FOLLOWING THAT SHE IS TAKING DIFFERENTLY THAN PRESCRIBED: 01-17-19 PREDNISONE 10MG 4 DAILY #60 (STATES IT HAS BEEN DECREASED TO 2 TABS DAILY) 01-17-19 FLUCONAZOLE 150MG DAILY #15 (STATES SHE USES PRN FOR THRUSH) 01-14-19 NYSTATIN 2 & 1/2 TSP QID (NO LONGER TAKING, DOES NOT LIKE, WILL TAKE PILLS ONLY) 01-10-19 GABAPENTIN 600MG TID #84 (DECREASED TO 1/2 TAB TID) SHE STATES SHE ALSO HAS PROMETHAZINE ON HAND IF NEEDED.
--- NOTE | 2019-01-30 11:56 | Oncology Consultation ---
Visit Information Visit Information Date of Admission Jan 28, 2019 at 16:00 Attending Physician Tish Salcedo DO Admitting Physician No,Local Physician Chief Complaint abdominal pain, diarrhea and lung cancer Interval History Ms. Portillo is a 63 year old white female known to me at the cancer center, who was admitted to ICU for acute abdominal pain and diarrhea as well as elevated WBC 18k. CT showed thickening of sigmoid wall with edema suggesting infection and/or inflammation. She had antibiotics about 3 weeks ago for UTI. She was treated with IVF and IV Cipro and Flagyl since admission. She is much better today and had a small formed stool. Her abdominal pain resolved and WBC down to 10. I also suspect she had possible autoimmune reaction from Tacentrig (immunot herapy for lung cancer) with hand and feet pain and swelling like rheumatoid arthritis . She was put on Prednisone 40mg a day and her symptoms were improved and I started her on the taper last week and she is now to 20mg a day. I consulted the patient on: 01/30/19 11:47 Time Seen by Provider: 11:47 Review of Systems Constitutional: see HPI EENTM: see HPI Respiratory: see HPI Cardiovascular: see HPI Health Status Allergies Coded Allergies: codeine (Unverified Adverse Reaction, Mild, n/v, 11/14/11) morphine (Unverified Adverse Reaction, Mild, n/v, 11/14/11) Home Medications Fluconazole (Fluconazole) 150 Mg Tablet, 150 MG PO DAILY PRN for THRUSH for 15 Days, (Reported) 15 DAY SUPPLY FILLED 01-17-19 Gabapentin (Gabapentin) 600 Mg Tablet, 300 MG PO TID, (Reported) TAKES 1/2 (600MG) TABLET Omeprazole (Omeprazole) 40 Mg Capsule.dr, 40 MG PO DAILY, (Reported) Oxycodone HCl/Acetaminophen (Oxycodone-Acetaminophen 5-325) 1 Each Tablet, 1 TAB PO Q8H PRN for PAIN-MODERATE, (Reported) Prednisone (Prednisone) 10 Mg Tab, 20 MG PO DAILY for 15 Days, (Reported) 15 DAY SUPPLY FILLED 01-17-19 TAKES 2 (10MG) TABLETS Promethazine HCl (Promethazine Tablet) 25 Mg Tablet, 25 MG PO Q6H PRN for NAUSEA/VOMITING-2ND LINE, (Reported) LDJ-Cbokzp-Njcpjn Hx Patient Social History Marrital Status: single Employed/Student: unemployed Alcohol Use: Denies Use Recreational Drug Use: No Smoking Status: Current Everyday Smoker (1 PPD) Type Used: Cigarettes Recent Foreign Travel: No Contact w/other who traveled: No Recent Infectious Disease Expo: No Recent Hopitalizations: No Immunizations Up To Date Tetanus Booster (TDap): Unknown Family Medical History Significant Family History: Cancer (mother had breast cancer), CAD Over 55 Years Old (father and grandfather), Diabetes (father), Hypertension Physical Exam Vital Signs Vital Signs - First Documented 01/28/19 01/28/19 13:30 17:15 Temp 100.1 Pulse 126 Resp 18 B/P (MAP) 106/76 (86) Pulse Ox 96 O2 Delivery Room Air Capillary Refill : Less Than 3 Seconds Height, Weight, BMI Height: 5'7.00" Weight: 128lbs. 3.0oz. 58.435636ad; 20.9 BMI Method:Stated General Appearance: No Apparent Distress HEENT: PERRL/EOMI Neck: Supple Respiratory: Lungs Clear, No Accessory Muscle Use, No Respiratory Distress Cardiovascular: Regular Rate, Rhythm, No Edema, No JVD Gastrointestinal: Non Tender, Soft Extremity: Non Tender, No Calf Tenderness, No Pedal Edema Neurologic/Psychiatric: Alert, Oriented x3 Data Review Labs Laboratory Tests 01/30/19 03:22 Laboratory Tests 01/28/19 13:40: White Blood Count 18.5H, Red Blood Count 4.16L, Red Cell Distribution Width 19.8H, Neutrophils (%) (Auto) 83H, Lymphocytes (%) (Auto) 11L, Neutrophils # (Auto) 15.4H, Magnesium Level 1.5L, Total Protein 6.0L 01/28/19 13:48: Urine Oxycodone Screen POSITIVEH 01/29/19 03:30: Red Blood Count 3.51L, Red Cell Distribution Width 19.5H, Magnesium Level 1.6L, Total Protein 4.8L, Hemoglobin 10.7L, Hematocrit 33L, Sodium Level 133L, Calcium Level 8.2L, Albumin 2.8L 01/30/19 03:22: Red Blood Count 3.48L, Red Cell Distribution Width 18.9H, Total Protein 5.6L, Hemoglobin 10.6L, Hematocrit 33L, Chloride Level 111H, Glucose Level 114H Impression & Plan Impression & Plan IMP: 1. Acute colitis, with acute abdominal pain and diarrhea, leukocytosis and thickening of sigmoid wall, improving on IVF and antibiotics, stool culture and C diff pending 2. Squamous cell lung cancer s/p chemo and immunotherapy from outside facility. Last treatment was about 8 weeks ago. She completed her chemotherapy and is in the processing for radiation treatment in 2-3 weeks 3. 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 4. Neuropathy with hand and feet burning. 5. Ultra sound showed thickening of gall bladder wall. Plan: 1. Pt can be transferred to 4th floor and discharge home from there. Dr Salcedo to decide the course. 2. Pt needs to stay on the Prednisone 20mg daily until she sees me in 10 days as already scheduled. 3. If not clear indication for the infection, I would not keep her on oral antibiotics. 4. She may benefit from Probiotics. Thank you for the consultation. ROHAN MOODY MD Jan 30, 2019 11:56
[2019-01-30] MEDS ORDERED: PATIENT MAY USE OWN MED,SINGLE MED PO SCH (12:00)
--- NOTE | 2019-01-30 12:26 | Progress Note (SOAP) ---
SHANNAN AYALA MD 01/30/19 1225: Focused Exam Lactate Level 01/28/19 13:40: Lactic Acid Level 1.54 Objective Exam Last Set of Vital Signs Vital Signs Date Time Temp Pulse Resp B/P (MAP) Pulse Ox O2 Delivery O2 Flow Rate FiO2 01/30/19 12:00 97.0 01/30/19 08:15 97 Room Air 01/30/19 08:00 76 19 119/74 (89) Capillary Refill : Less Than 3 Seconds I&O Intake and Output 01/29/19 23:59 Intake Total 5310 ml Output Total 2425 ml Balance 2885 ml Intake Oral 2510 ml IV Total 2800 ml Output Urine Total 2425 ml # Voids 4 # Bowel Movements 2 Results/Procedures Lab Laboratory Tests 01/30/19 03:22: White Blood Count 7.4, Red Blood Count 3.48L, Hemoglobin 10.6L, Hematocrit 33L, Mean Corpuscular Volume 95, Mean Corpuscular Hemoglobin 30, Mean Corpuscular Hemoglobin Concent 32, Red Cell Distribution Width 18.9H, Platelet Count 165, Mean Platelet Volume 8.8, Neutrophils (%) (Auto) 60, Lymphocytes (%) (Auto) 28, Monocytes (%) (Auto) 8, Eosinophils (%) (Auto) 3, Basophils (%) (Auto) 0, Neutrophils # (Auto) 4.5, Lymphocytes # (Auto) 2.1, Monocytes # (Auto) 0.6, Eosinophils # (Auto) 0.2, Basophils # (Auto) 0.0, Sodium Level 142, Potassium Level 4.3, Chloride Level 111H, Carbon Dioxide Level 22, Anion Gap 9, Blood Urea Nitrogen 7, Creatinine 0.62, Estimat Glomerular Filtration Rate > 60, BUN/Creatinine Ratio 11, Glucose Level 114H, Calcium Level 8.9, Corrected Calcium 9.5, Total Bilirubin 0.3, Aspartate Amino Transf (AST/SGOT) 16, Alanine Aminotransferase (ALT/SGPT) 16, Alkaline Phosphatase 56, Total Protein 5.6L, Albumin 3.2 Microbiology 01/28/19 Blood Culture - Preliminary, Resulted No growth 01/28/19 Fecal Leukocyte Stain - Final, Resulted 01/28/19 C. difficile GDH Antigen & Toxins - Final, Resulted 01/28/19 Stool Culture, Resulted Pending Clinical Quality Measures DVT/VTE Risk/Contraindication: Risk Factor Score Per Nursin RFS Level Per Nursing on Admit: 4+=Very High BEULAH GARCIA 02/03/19 1123: SHANNAN AYALA MD Jan 30, 2019 12:25 BEULAH GARCIA Feb 03, 2019 11:23
--- NOTE | 2019-01-30 13:26 | NUR ---
PT TRANSFERRED TO 4TH FLOOR VIA W/C AT 1255 ACCOMPANIED BY THIS RN AND PCT. ALL PERSONAL BELONGINGS WITH SO. REPORT GIVEN TO GERSON.
--- NOTE | 2019-01-30 13:30 | NUR ---
RECEIVED FROM ICU, ALERT, UP IN CHAIR, ORIENTED TO ROOM, CALL LIGHT WITHIN REACH, DENIES PAIN OR SOB, CONTINUE CONTACT ISOLATION
--- NOTE | 2019-01-30 13:46 | Progress Note ---
Subjective Time Seen by a Provider: 12:37 Subjective/Events-last exam Pt seen and examined, she denies abdominal pain and is tolerating liquids. States she did have a small BM. Review of Systems General: No Chills, No Night Sweats Pulmonary: No Dyspnea, No Cough Cardiovascular: No: Chest Pain, Palpitations Gastrointestinal: No: Nausea, Vomiting Focused Exam Lactate Level 01/28/19 13:40: Lactic Acid Level 1.54 Objective Exam Vital Signs Date Time Temp Pulse Resp B/P (MAP) Pulse Ox O2 Delivery O2 Flow Rate FiO2 01/30/19 13:00 81 01/30/19 12:00 97 Room Air 01/30/19 12:00 97.0 01/30/19 08:15 97 Room Air 01/30/19 08:00 76 19 119/74 (89) Room Air 01/30/19 07:00 80 01/30/19 06:11 97.9 01/30/19 04:00 84 18 131/93 (106) Room Air 01/30/19 04:00 96 Room Air 01/30/19 03:20 97.9 01/30/19 01:00 87 01/30/19 00:58 96 Room Air 01/30/19 00:49 97.9 01/30/19 00:35 93 17 112/77 (89) Room Air 01/29/19 20:50 96 Room Air 01/29/19 20:00 93 23 111/75 (87) 96 Room Air 01/29/19 19:30 96.8 01/29/19 19:00 94 01/29/19 16:00 92 27 122/65 (84) 92 Room Air 01/29/19 16:00 97.7 01/29/19 16:00 96 Room Air I & O 01/30/19 07:00 Intake Total 5060 ml Output Total 1675 ml Balance 3385 ml Capillary Refill : Less Than 3 Seconds General Appearance: No Apparent Distress HEENT: PERRL/EOMI Neck: Supple Respiratory: Lungs Clear, No Accessory Muscle Use, No Respiratory Distress Cardiovascular: Regular Rate, Rhythm, No Edema, No JVD Gastrointestinal: normal bowel sounds, soft, no organomegaly, no pulsatile mass, tenderness (LLQ very minimal with deep palpation), hernia (small umbilical hernia) Extremity: Non Tender, No Calf Tenderness, No Pedal Edema Neurologic/Psychiatric: Alert, Oriented x3 Skin: Normal Color, Warm/Dry Results Lab Laboratory Tests 01/30/19 03:22: White Blood Count 7.4, Red Blood Count 3.48L, Hemoglobin 10.6L, Hematocrit 33L, Mean Corpuscular Volume 95, Mean Corpuscular Hemoglobin 30, Mean Corpuscular Hemoglobin Concent 32, Red Cell Distribution Width 18.9H, Platelet Count 165, Mean Platelet Volume 8.8, Neutrophils (%) (Auto) 60, Lymphocytes (%) (Auto) 28, Monocytes (%) (Auto) 8, Eosinophils (%) (Auto) 3, Basophils (%) (Auto) 0, Neutrophils # (Auto) 4.5, Lymphocytes # (Auto) 2.1, Monocytes # (Auto) 0.6, Eosinophils # (Auto) 0.2, Basophils # (Auto) 0.0, Sodium Level 142, Potassium Level 4.3, Chloride Level 111H, Carbon Dioxide Level 22, Anion Gap 9, Blood Urea Nitrogen 7, Creatinine 0.62, Estimat Glomerular Filtration Rate > 60, BU N/Creatinine Ratio 11, Glucose Level 114H, Calcium Level 8.9, Corrected Calcium 9.5, Total Bilirubin 0.3, Aspartate Amino Transf (AST/SGOT) 16, Alanine Aminotransferase (ALT/SGPT) 16, Alkaline Phosphatase 56, Total Protein 5.6L, Albumin 3.2 Microbiology 01/28/19 Blood Culture - Preliminary, Resulted No growth 01/28/19 Fecal Leukocyte Stain - Final, Resulted 01/28/19 C. difficile GDH Antigen & Toxins - Final, Resulted 01/28/19 Stool Culture, Resulted Pending Assessment/Plan Assessment/Plan Assessment/Plan Colitis Diarrhea Distended GB on CT has improved compared with US today, Radiology read as no acute Cholecystitis Hx of UTI Will cotinue IV ABX and wait for stool study results; C. Diff was negative. Increase diet slowly, pain control, IVF and anti-emetics. Can do colonoscopy or even flex sig as an outpt. Continue current care. Clinical Quality Measures DVT/VTE Risk/Contraindication: Risk Factor Score Per Nursin RFS Level Per Nursing on Admit: 4+=Very High ELODIA REDMAN DO Jan 30, 2019 13:46
[2019-01-30 16:00] VITALS: BP 126/82
--- NOTE | 2019-01-30 17:22 | Pulmonary Consultation ---
History of Present Illness History of Present Illness Date of Consultation 01/30/19 17:22 Date of Admission Allergies and Home Medications Allergies Coded Allergies: codeine (Unverified Adverse Reaction, Mild, n/v, 11/14/11) morphine (Unverified Adverse Reaction, Mild, n/v, 11/14/11) Home Medications Fluconazole 150 Mg Tablet, 150 MG PO DAILY PRN for THRUSH, (Reported) 15 DAY SUPPLY FILLED 01-17-19 Gabapentin 600 Mg Tablet, 300 MG PO TID, (Reported) TAKES 1/2 (600MG) TABLET Omeprazole 40 Mg Capsule.dr, 40 MG PO DAILY, (Reported) Oxycodone HCl/Acetaminophen 1 Each Tablet, 1 TAB PO Q8H PRN for PAIN-MODERATE, (Reported) Prednisone 10 Mg Tab, 20 MG PO DAILY, (Reported) 15 DAY SUPPLY FILLED 01-17-19 TAKES 2 (10MG) TABLETS Promethazine HCl 25 Mg Tablet, 25 MG PO Q6H PRN for NAUSEA/VOMITING-2ND LINE, (Reported) Past Lkpyiog-Wouqoq-Aihfks Hx Past Med/Social Hx: Reviewed Nursing Past Med/Soc Hx, Reviewed and Corrections made Patient Social History Alcohol Use: Denies Use Recreational Drug Use: No Smoking Status: Current Everyday Smoker (1 PPD) Type Used: Cigarettes Recent Foreign Travel: No Contact w/Someone Who Travel: No Recent Infectious Disease Expo: No Recent Hopitalizations: No Immunizations Up To Date Tetanus Booster (TDap): Unknown Seasonal Allergies Seasonal Allergies: No Past Medical History Surgeries: Yes (PORT RIGHT CHEST) Hysterectomy, Orthopedic Respiratory: Yes (LUNG CANCER) COPD, Emphysema Currently Using CPAP: No Currently Using BIPAP: No Cardiac: No Neurological: Yes (CANCER-RELATED NEUROPATHY) 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 3.0oz. 58.106669br; 20.9 BMI Method:Stated Exam Exam Vital Signs Date Time Temp Pulse Resp B/P (MAP) Pulse Ox O2 Delivery O2 Flow Rate FiO2 01/30/19 16:00 97.1 92 20 126/82 (97) 95 Room Air 01/30/19 15:09 96 Room Air 01/30/19 13:00 81 01/30/19 12:00 97 Room Air 01/30/19 12:00 97.0 01/30/19 08:15 97 Room Air 01/30/19 08:00 76 19 119/74 (89) Room Air 01/30/19 07:00 80 01/30/19 06:11 97.9 01/30/19 04:00 84 18 131/93 (106) Room Air 01/30/19 04:00 96 Room Air 01/30/19 03:20 97.9 01/30/19 01:00 87 01/30/19 00:58 96 Room Air 01/30/19 00:49 97.9 01/30/19 00:35 93 17 112/77 (89) Room Air 01/29/19 20:50 96 Room Air 01/29/19 20:00 93 23 111/75 (87) 96 Room Air 01/29/19 19:30 96.8 01/29/19 19:00 94 I & O 01/30/19 07:00 Intake Total 5060 ml Output Total 1675 ml Balance 3385 ml Height & Weight Height: 5'7.00" Weight: 128lbs. 3.0oz. 58.552672ba; 20.9 BMI Method:Stated General Appearance: No Apparent Distress HEENT: PERRL/EOMI Neck: Supple Respiratory: Lungs Clear, No Accessory Muscle Use, No Respiratory Distress Cardiovascular: Regular Rate, Rhythm, No Edema, No JVD Capillary Refill: Less Than 3 Seconds Gastrointestinal: normal bowel sounds, soft, no organomegaly, no pulsatile mass, tenderness (LLQ very minimal with deep palpation), hernia (small umbilical hernia) Extremity: Non Tender, No Calf Tenderness, No Pedal Edema Neurologic/Psychiatric: Alert, Oriented x3 Skin: Normal Color, Warm/Dry Results Lab Laboratory Tests 01/29/19 03:30 01/30/19 03:22 KIRA LIRA DO Jan 30, 2019 17:22
--- NOTE | 2019-01-30 19:10 | Progress Note (SOAP) ---
Subjective Subjective/Events-last exam 63 yo F currently undergoing treatment for lung Ca that came in with abdominal pain. States that her pain is much improved since admission. She is tolerating regular diet with minimal pain. Waiting on stool cultures. Review of Systems Date Seen by Provider: Jan 30, 2019 Time Seen by Provider: 10:15 Pulmonary: No Dyspnea; Cough Cardiovascular: No: Chest Pain, Palpitations, Orthopnea Gastrointestinal: Abdominal Pain, Diarrhea; No: Nausea, Vomiting, Constipation, Melena Genitourinary: No Dysuria, No Frequency, No Incontinence Musculoskeletal: foot pain Neurological: Numbness Focused Exam Lactate Level 01/28/19 13:40: Lactic Acid Level 1.54 Objective Exam Last Set of Vital Signs Vital Signs Date Time Temp Pulse Resp B/P (MAP) Pulse Ox O2 Delivery O2 Flow Rate FiO2 01/30/19 16:00 97.1 92 20 126/82 (97) 95 Room Air Capillary Refill : Less Than 3 Seconds I&O Intake and Output 01/30/19 00:00 Intake Total 5310 ml Output Total 2425 ml Balance 2885 ml Intake Oral 2510 ml IV Total 2800 ml Output Urine Total 2425 ml # Voids 4 # Bowel Movements 2 General: Alert, Oriented X3, Cooperative, No Acute Distress HEENT: Mucous Memb Moist/[place] Lungs: Clear to Auscultation, Normal Air Movement Heart: Regular Rate, No Murmurs Abdomen: Normal Bowel Sounds, Soft, No Tenderness, No Masses Extremities: Other (trace edema present bilaterally) Skin: No Rashes, No Breakdown Neuro: Strength at 5/5 X4 Ext, Cranial Nerves 3-12 NL, Other (burning pain in both feet) Results/Procedures Lab Laboratory Tests 01/30/19 03:22: White Blood Count 7.4, Red Blood Count 3.48L, Hemoglobin 10.6L, Hematocrit 33L, Mean Corpuscular Volume 95, Mean Corpuscular Hemoglobin 30, Mean Corpuscular Hemoglobin Concent 32, Red Cell Distribution Width 18.9H, Platelet Count 165, Mean Platelet Volume 8.8, Neutrophils (%) (Auto) 60, Lymphocytes (%) (Auto) 28, Monocytes (%) (Auto) 8, Eosinophils (%) (Auto) 3, Basophils (%) (Auto) 0, Neutrophils # (Auto) 4.5, Lymphocytes # (Auto) 2.1, Monocytes # (Auto) 0.6, Eosinophils # (Auto) 0.2, Basophils # (Auto) 0.0, Sodium Level 142, Potassium Level 4.3, Chloride Level 111H, Carbon Dioxide Level 22, Anion Gap 9, Blood Urea Nitrogen 7, Creatinine 0.62, Estimat Glomerular Filtration Rate > 60, BUN/Creatinine Ratio 11, Glucose Level 114H, Calcium Level 8.9, Corrected Calcium 9.5, Total Bilirubin 0.3, Aspartate Amino Transf (AST/SGOT) 16, Alanine Aminotransferase (ALT/SGPT) 16, Alkaline Phosphatase 56, Total Protein 5.6L, Albumin 3.2 Microbiology 01/28/19 Blood Culture - Preliminary, Resulted No growth 01/28/19 Fecal Leukocyte Stain - Final, Resulted 01/28/19 C. difficile GDH Antigen & Toxins - Final, Resulted 01/28/19 Stool Culture - Preliminary, Resulted Culture In Progress Presumptive Usual Lucia Assessment/Plan Assessment/Plan (1) Sepsis Status: Resolved Qualifiers: Qualified Codes: A41.9 - Sepsis, unspecified organism (2) Colitis Status: Acute Assessment & Plan: 01/30: Continue Cipro and Flagyl, waiting on stool cultures, C diff neg (3) Thrush, oral Status: Acute Assessment & Plan: 01/30: Continue PO diflucan (4) Neuropathy associated with cancer Status: Chronic Assessment & Plan: 01/30: Chemo induced, continue gabapentin (5) Lung cancer Status: Chronic Assessment & Plan: 01/30: Onc consulted and following patient Qualifiers: Qualified Codes: C34.90 - Malignant neoplasm of unspecified part of unspecified bronchus or lung Clinical Quality Measures DVT/VTE Risk/Contraindication: Risk Factor Score Per Nursin RFS Level Per Nursing on Admit: 4+=Very High SHANNAN AYALA MD Jan 30, 2019 19:10
[2019-01-30 20:00] VITALS: BP 137/77
[2019-01-31 00:25] VITALS: BP 120/56
[2019-01-31] MEDS: metroNIDAZOLE 500MG/100ML IVPB 100 ML IV SCH ×3 (01:05→11:50)
[2019-01-31] MEDS: D5 1/2 NS W/KCL 20 MEQ/L 1,000 ML IV SCH (01:06)
[2019-01-31] MEDS: oxyCODONE/APAP 5/325MG (PERCOCET 5) TABLET PO PRN ×2 (01:57→11:20)
[2019-01-31 04:10] VITALS: BP 116/78
[2019-01-31] MEDS: LACTOBACILLUS ACIDOPHILUS (PROBIOTIC) CAPSULE PO SCH ×2 (05:58→11:14)
[2019-01-31] MEDS: predniSONE 20 MG TAB PO SCH (05:58)
[2019-01-31] MEDS: ACETAMINOPHEN 500 MG TAB (TYLENOL) PO PRN (05:58)
[2019-01-31 06:20] LABS: BASOPHILS % (AUTO) 0 % (0-10); EOSINOPHILS # (AUTO) 0.3 10^3/uL (0.0-0.3); EOSINOPHILS % (AUTO) 5 % (0-10); HEMATOCRIT 34 % (35-52); HEMOGLOBIN 10.9 G/DL (11.5-16.0); LYMPHOCYTES # (AUTO) 1.8 X 10^3 (1.0-4.0); LYMPHOCYTES % (AUTO) 29 % (12-44); MEAN CORPUSCULAR HEMOGLOBIN 30 PG (25-34); MEAN CORPUSCULAR HGB CONC 32 G/DL (32-36); MEAN CORPUSCULAR VOLUME 96 FL (80-99); MEAN PLATELET VOLUME 8.7 FL (7.4-10.4); MONOCYTES # (AUTO) 0.5 X 10^3 (0.0-1.0); MONOCYTES % (AUTO) 8 % (0-12); NEUTROPHILS # (AUTO) 3.4 X 10^3 (1.8-7.8); NEUTROPHILS % (AUTO) 58 % (42-75); PLATELET COUNT 151 10^3/uL (130-400); RED CELL DISTRIBUTION WIDTH 18.7 % (10.0-14.5)
[2019-01-31 06:39] LABS: BUN/CREATININE RATIO 8; CARBON DIOXIDE 23 MMOL/L (21-32); CHLORIDE 108 MMOL/L (98-107); CREATININE SERUM 0.66 MG/DL (0.60-1.30); GFR ESTIMATED > 60; GLUCOSE 94 MG/DL (70-105); POTASSIUM 3.9 MMOL/L (3.6-5.0); SODIUM 140 MMOL/L (135-145)
[2019-01-31 08:00] VITALS: BP 109/65
[2019-01-31] MEDS: NICOTINE 21 MG (NICODERM) PATCH TD SCH (08:08)
[2019-01-31] MEDS: GABAPENTIN 600 MG (NEURONTIN) TAB PO SCH ×2 (08:09→12:19)
[2019-01-31] MEDS: CIPROFLOXACIN IV 400MG/200ML 200 ML IV SCH (08:09)
[2019-01-31] MEDS ORDERED: FLUCONAZOLE 150 MG TABLET PO PRN (09:00)
[2019-01-31 12:00] VITALS: BP 119/90
--- NOTE | 2019-01-31 14:15 | Discharge Summary ---
Diagnosis/Chief Complaint Date of Admission Jan 28, 2019 at 16:00 Date of Discharge 01/31/2019 Admission Diagnosis Admission Diagnosis See problem list Discharge Diagnosis See Below Problems/Diagnosis: (1) Sepsis Qualifiers: Qualified Codes: A41.9 - Sepsis, unspecified organism Status: Resolved Resolution Date/Time: 01/30/19 @ 19:12 (2) Colitis Assessment & Plan: 01/30: Continue Cipro and Flagyl, waiting on stool cultures, C diff neg Status: Acute (3) Thrush, oral Assessment & Plan: 01/30: Continue PO diflucan Status: Acute (4) Neuropathy associated with cancer Assessment & Plan: 01/30: Chemo induced, continue gabapentin Status: Chronic (5) Lung cancer Assessment & Plan: 01/30: Onc consulted and following patient Qualifiers: Qualified Codes: C34.90 - Malignant neoplasm of unspecified part of unspecified bronchus or lung Status: Chronic Discharge Summary-Simple/Stand Consultations Dr Gilbert: General Surgery Dr Smalls: Oncology Discharge Physical Examination Allergies: Coded Allergies: codeine (Unverified Adverse Reaction, Mild, n/v, 11/14/11) morphine (Unverified Adverse Reaction, Mild, n/v, 11/14/11) Vitals & I&Os Vital Sign - Last 12Hours Date Time Temp Pulse Resp B/P (MAP) Pulse Ox O2 Delivery O2 Flow Rate FiO2 01/31/19 12:00 97.3 89 18 119/90 (100) 97 Room Air Intake and Output 01/31/19 00:00 Intake Total 2260 ml Balance 2260 ml General Appearance: Alert, Oriented X3, No Acute Distress HEENT: Mucous Memb Moist/[place] Respiratory: Clear to Auscultation, Normal Air Movement Cardiovascular: Regular Rate, No Murmurs Abdominal: Normal Bowel Sounds, Soft, Other (mild generalized ttp, no guarding or rebound) Extremities: No Edema, No Tenderness/Swelling Skin: No Rashes, No Breakdown Neuro: Normal Speech, Strength at 5/5 X4 Ext, Sensation Intact, Cranial Nerves 3-12 NL Psych/Mental Status: Mental Status NL, Mood NL Hospital Course Was the Problem List Reviewed?: Yes See final discharge diagnosis. Discussion & Recommendations 63 yo F that is currently taking chemo for lung cancer that came in meeting sepsis criteria and having worsening abdominal pain. CT showed concerns for colitis. Patient had some loose stools and was neg for C diff. She was started on Cipro and Flagyl and improved with IV antibiotics. She was then advanced from CLD to Reg diet and did well. Leukocytosis resolved. She was sent home to complete a 10 day course of oral antibiotics and encouraged to stay on a bland diet. She will have close f.u with her oncologist and her PCP. Discharge Condition at discharge Guarded Instructions to patient/family Please see electronic discharge instructions given to patient. Discharge Medications Reviewed and agree with Discharge Medication list on patient's Discharge Instruction sheet Clinical Quality Measures DVT/VTE Risk/Contraindication: Risk Factor Score Per Nursin RFS Level Per Nursing on Admit: 4+=Very High Copy Copies To 1: [facility]: GARY Barcenas HOLLY R MD Jan 31, 2019 14:14
[2019-01-31] MEDS ORDERED: METR500T PO (14:18)
[2019-01-31] MEDS ORDERED: CIPR-225 PO (14:18)
--- NOTE | 2019-01-31 14:24 | Discharge Instructions ---
Discharge [facility] Discharge Medications New, Converted or Re-Newed RX: Transmitted to Pharmacy New Medications: Ciprofloxacin HCl (Cipro) 500 Mg Tablet 500 MG PO BID, #20 TAB Metronidazole (Flagyl) 500 Mg Tablet 500 MG PO BID for 10 Days, #20 TAB Continued Medications: Fluconazole (Fluconazole) 150 Mg Tablet 150 MG PO DAILY PRN for THRUSH for 15 Days, TAB 15 DAY SUPPLY FILLED 01-17-19 Gabapentin (Gabapentin) 600 Mg Tablet 300 MG PO TID, TAB TAKES 1/2 (600MG) TABLET Omeprazole (Omeprazole) 40 Mg Capsule.dr 40 MG PO DAILY, CAP Oxycodone HCl/Acetaminophen (Oxycodone-Acetaminophen 5-325) 1 Each Tablet 1 TAB PO Q8H PRN for PAIN-MODERATE, TAB Prednisone (Prednisone) 10 Mg Tab 20 MG PO DAILY for 15 Days, TAB 15 DAY SUPPLY FILLED 01-17-19 TAKES 2 (10MG) TABLETS Promethazine HCl (Promethazine Tablet) 25 Mg Tablet 25 MG PO Q6H PRN for NAUSEA/VOMITING-2ND LINE, TAB Patient Instructions Goal/Follow Up Appt: You will need to follow up with your PCP next week Activity & Diet Discharge Diet: Eat Small Frequent Meals, Low Residue SHANNAN AYALA MD Jan 31, 2019 14:24
--- NOTE | 2019-01-31 19:49 | Progress Note ---
Subjective Time Seen by a Provider: 12:10 Subjective/Events-last exam Pt seen and examined, states she is doing great. No abdominal pain, tolerating diet and having BM's. Review of Systems General: No Chills, No Night Sweats Pulmonary: No Dyspnea, No Cough Cardiovascular: No: Chest Pain, Palpitations Gastrointestinal: No: Nausea, Vomiting Objective Exam Vital Signs Date Time Temp Pulse Resp B/P (MAP) Pulse Ox O2 Delivery O2 Flow Rate FiO2 01/31/19 15:20 01/31/19 12:00 97.3 89 18 119/90 (100) 97 Room Air 01/31/19 08:00 Room Air 01/31/19 08:00 98.5 84 18 109/65 (80) 97 Room Air 01/31/19 04:10 97.5 77 19 116/78 (91) 99 Room Air 01/31/19 04:00 96 Room Air 01/31/19 00:46 96 Room Air 01/31/19 00:25 97.2 88 18 120/56 (77) 98 Room Air 01/30/19 20:00 98.3 90 20 137/77 (97) 98 Room Air 01/30/19 20:00 96 Room Air I & O 01/31/19 07:00 Intake Total 2790 ml Balance 2790 ml Capillary Refill : Less Than 3 Seconds General Appearance: No Apparent Distress, Chronically ill HEENT: PERRL/EOMI, Moist Mucous Membranes Neck: Supple Respiratory: Lungs Clear, No Accessory Muscle Use, No Respiratory Distress Cardiovascular: Regular Rate, Rhythm, No Edema, No JVD Gastrointestinal: normal bowel sounds, non tender, soft, no organomegaly, no pulsatile mass, hernia (small umbilical hernia) Extremity: Non Tender, No Calf Tenderness, No Pedal Edema Neurologic/Psychiatric: Alert, Oriented x3 Results Lab Laboratory Tests 01/31/19 06:11: White Blood Count 6.0, Red Blood Count 3.59L, Hemoglobin 10.9L, Hematocrit 34L, Mean Corpuscular Volume 96, Mean Corpuscular Hemoglobin 30, Mean Corpuscular Hemoglobin Concent 32, Red Cell Distribution Width 18.7H, Platelet Count 151, Mean Platelet Volume 8.7, Neutrophils (%) (Auto) 58, Lymphocytes (%) (Auto) 29, Monocytes (%) (Auto) 8, Eosinophils (%) (Auto) 5, Basophils (%) (Auto) 0, Neutrophils # (Auto) 3.4, Lymphocytes # (Auto) 1.8, Monocytes # (Auto) 0.5, Eosinophils # (Auto) 0.3, Basophils # (Auto) 0.0, Sodium Level 140, Potassium Level 3.9, Chloride Level 108H, Carbon Dioxide Level 23, Anion Gap 9, Blood Urea Nitrogen 5L, Creatinine 0.66, Estimat Glomerular Filtration Rate > 60, BUN/Creatinine Ratio 8, Glucose Level 94, Calcium Level 9.0 Microbiology 01/28/19 Blood Culture - Preliminary, Resulted No growth 01/28/19 Fecal Leukocyte Stain - Final, Complete 01/28/19 C. difficile GDH Antigen & Toxins - Final, Complete 01/28/19 Stool Culture - Final, Complete Negative for Salmonella... Assessment/Plan Assessment/Plan Assessment/Plan Colitis Diarrhea Distended GB on CT has improved compared with US today, Radiology read as no acute Cholecystitis Hx of UTI Pt should go home on some PO ABX. Diet as tolerated; I told pt to see me in the office to schedule colonoscopy or even flex sig. Clinical Quality Measures DVT/VTE Risk/Contraindication: Risk Factor Score Per Nursin RFS Level Per Nursing on Admit: 4+=Very High ELODIA REDMAN DO Jan 31, 2019 19:49
== END 2019-01-31 15:20 | disposition home or self-care (01) | DRG 872 ==
LOC: EDUNIT# 13:27 → ER 13:29 → ICU 16:00 → 4TH 01-30 13:08
PROVIDERS: ADMIT Internal Medicine; ATTEND Internal Medicine
DX: A41.9 Sepsis, unspecified organism (principal); K52.9 Noninfective gastroenteritis and colitis, unspecified; E87.1 Hypo-osmolality and hyponatremia; B37.0 Candidal stomatitis; C34.32 Malignant neoplasm of lower lobe, left bronchus or lung; E86.0 Dehydration; E83.42 Hypomagnesemia; F17.210 Nicotine dependence, cigarettes, uncomplicated; J43.9 Emphysema, unspecified; R11.0 Nausea; G62.0 Drug-induced polyneuropathy; T45.1X5A Adverse effect of antineoplastic and immunosuppressive drugs, initial encounter; Z87.440 Personal history of urinary (tract) infections
CPT/HCPCS: 36415; 51702; 71045; 74177; 76705; 80048; 80053; 80306; 81000; 82150; 83605; 83690; 83735; 85007; 85025; 85027; 85610; 85730; 87015; 87040; 87045; 87046; 87324; 87449; 87899; 89055; 93041; 96361; 96365; 96367; 96375

== ENCOUNTER → 2019-05-11 | Outpatient (CLI) | payer MEDICAID ==
[~2019-05-11] MED LIST changes: +BARIUM SUSPENSION 2.1% (VANILLA SILQ) 450 ML PO ONE; +CATHETER FLUSH 10 ML SYR IV PRN; +CIPR-225 PO; +FLUC150T2 PO; +GBPN600T PO; +HEParin (CENTRAL IV FLUSH) 500 UNIT/5 ML SYR IV ONE; +HOLD METFORMIN - RECEIVED CONTRAST 20 ML VIAL IV SCH; +IOHEXOL 350 MG/ML 100 ML (OMNIPAQUE 350) VIAL IV ONE; +METR500T PO; +NS 100 ML (IVPB) BAG IV ONE; +NYST1000 PO; +OMEP40CA36 PO; +OXYC-471 PO; +PRD10T PO
--- NOTE | 2019-05-11 11:30 | Diagnostic Imaging Report ---
PROCEDURE: CT chest with contrast, CT abdomen with and without contrast. TECHNIQUE: Precontrast acquisitions were acquired through the abdomen. Multiple contiguous axial images were obtained through the chest and abdomen after administration of intravenous contrast. Auto Exposure Controls were utilized during the CT exam to meet ALARA standards for radiation dose reduction. INDICATION: Lung carcinoma. Patient complains of left lower rib pain, trauma to this area three months ago. COMPARISON: Correlation is made with prior CT chest on 01/15/[address] abdomen and pelvis on 01/28/2019. CT CHEST: A right chest wall port has tip at the SVC right atrial junction. No axillary lymphadenopathy is detected. No definite mediastinal or hilar lymphadenopathy is detected. No pericardial fluid is identified. There is a small left effusion. Pulmonary parenchymal evaluation does show centrilobular emphysematous changes in both lungs. Spiculated mass in the left lower lobe measures approximately 4.1 x 3.6 cm compared with 4.9 x 4.3 cm when measured by the same technique. Mass again demonstrates some central low density consistent with necrosis. Again no underlying erosive or destructive changes in the adjacent rib is seen. IMPRESSION: Mild decrease in size of spiculated left lower lobe mass when compared with CT study from 01/15/2019. There is a small left effusion. No bony destructive changes are identified. CT ABDOMEN: Circumscribed low-density mass in the dome of the right lobe of the liver appears to be stable and most suggestive of a cyst. There are no findings to suggest hepatic metastatic disease. The gallbladder is unremarkable. No biliary duct dilatation is seen. The pancreas and spleen are unremarkable. No adrenal mass is detected. Kidneys are unremarkable. Aorta is calcified but nonaneurysmal. No central retroperitoneal or mesenteric lymphadenopathy is seen. There is diverticulosis of the descending colon as well as ascending colon and portions of the transverse colon. There is no ascites. Evaluation of bony structures demonstrates compression deformity involving approximately L4 vertebral body. This was not present on CT from January but is most consistent with a healing compression fracture. There are numerous small sclerotic foci within mid and lower thoracic vertebral bodies. Metastatic disease cannot be entirely excluded as these do not appear to be present on prior CT chest from December 2018. IMPRESSION: 1. Hepatic cyst. No findings to suggest hepatic metastatic disease or lymphadenopathy. 2. Uncomplicated diverticulosis. 3. Healing compression fracture at L4 vertebral body. In addition, patient has developed multiple small foci of sclerosis involving the lower thoracic vertebral bodies and upper lumbar vertebral bodies, suspicious for developing osseous metastatic disease. Dictated by: Dictated on workstation # [id number]
== END ==
LOC: RAD 10:16
PROVIDERS: ATTEND Nurse Practitioner Adult Health
DX: C34.32 Malignant neoplasm of lower lobe, left bronchus or lung (principal); K76.89 Other specified diseases of liver; K57.30 Diverticulosis of large intestine without perforation or abscess without bleeding; M84.48XD Pathological fracture, other site, subsequent encounter for fracture with routine healing
CPT/HCPCS: 71260; 74170

== ENCOUNTER → 2019-05-25 | Outpatient (CLI) | payer MEDICAID, OTHER ==
[~2019-05-25] MED LIST changes: +ATRO2DRO4 SL; -BARIUM SUSPENSION 2.1% (VANILLA SILQ) 450 ML PO ONE; +BISA10SU8 PR; +CYAN-23 PO; +GADOBUTROL 7.5 MMOL/7.5 ML (GADAVIST) VIAL IV ONE; -HEParin (CENTRAL IV FLUSH) 500 UNIT/5 ML SYR IV ONE; -HOLD METFORMIN - RECEIVED CONTRAST 20 ML VIAL IV SCH; -IOHEXOL 350 MG/ML 100 ML (OMNIPAQUE 350) VIAL IV ONE; +LEVO500T2 PO; +NALO25TA PO; -NS 100 ML (IVPB) BAG IV ONE; +OMEP40CA27 PO; -OMEP40CA36 PO; +OXYC-464 PO; +RT-ALBUINH INH; +[UNRECOGNIZED DRUG - OTHER] IV
--- NOTE | 2019-05-25 15:41 | Diagnostic Imaging Report ---
INDICATION: Adenocarcinoma of the left lung. Recent CT demonstrated a developing sclerotic lesions suspicious for metastatic disease. The study is performed for further evaluation. TECHNIQUE: Pre and post intravenous contrast multiplanar, multisequence imaging of the thoracic spine was performed. COMPARISON: Correlation is made with prior CT chest and abdomen study from 05/11/2019. FINDINGS: There is a slightly hyperkyphotic curvature to the thoracic spine. Vertebral body heights are maintained. No acute compression fracture is seen. There are innumerable marrow replacing lesions throughout the thoracic vertebrae consistent with osseous metastatic disease. A majority of the lesions appear to be involving the vertebral bodies. There appears to be a small marrow replacing lesion involving left lamina near the midline at the T3 level. There is also a questionable lesion involving the right transverse process at approximately the T7 level. No definite extraosseous extension of tumor is identified. The spinal canal appears to be widely patent. No abnormal enhancement within the spinal canal is seen. No abnormal spinal cord signal is seen. There is some generalized degenerative disc disease with variable disc space narrowing and desiccation. Small midline disc bulge is identified at the T5-T6 level. There appears to be a rounded mass in the left lower lobe as well as a small left effusion. IMPRESSION: Numerous rounded marrow replacing lesions are identified throughout the thoracic spine, predominantly involving the vertebral bodies consistent with osseous metastatic disease. No spinal canal involvement is identified. Dictated by: Dictated on workstation # [id number]
--- NOTE | 2019-05-25 15:45 | Diagnostic Imaging Report ---
PROCEDURE: MRI lumbar spine with and without contrast. TECHNIQUE: Multiplanar, multisequence MRI of the lumbar spine was performed with and without contrast. INDICATION: Lung cancer with abnormal recent CT demonstrating multiple sclerotic bony lesions. COMPARISON: Correlation is made with recent CT study from 05/11/2019. FINDINGS: Curvature and alignment of the lumbar spine is normal. The compression fracture deformity involving the superior endplate of the L4 vertebral body is again noted. There is some mild loss of stature. Remaining vertebral bodies show normal stature. However, there are innumerable rounded marrow replacing lesions throughout the lumbar spine vertebral bodies. There is also some involvement of the posterior elements at several levels at the junction of the lamina with spinous processes at the L1 level as well as the spinous process at L3. Diffuse abnormal enhancement is present on postcontrast studies. There are some marrow replacing lesions involving bilateral iliac bones as well as S1 and S2 vertebral bodies. The conus is unremarkable at the L1 level. Central canal appears to be patent. No abnormal enhancement within the spinal canal is detected. Extraosseous soft tissues are unremarkable. IMPRESSION: Diffuse osseous metastatic disease. There is also an acute/subacute compression fracture of L4 superior endplate. No retropulsion is identified. Dictated by: Dictated on workstation # [id number]
== END ==
LOC: RAD 13:57
PROVIDERS: ATTEND Internal Medicine Hematology & Oncology
DX: C34.92 Malignant neoplasm of unspecified part of left bronchus or lung (principal); C79.51 Secondary malignant neoplasm of bone
CPT/HCPCS: 72157; 72158

== ENCOUNTER 2019-05-30 13:52 | Outpatient (RCR) | payer MEDICAID, OTHER ==
[~2019-05-30 13:52] MED LIST changes: -ATRO2DRO4 SL; -BISA10SU8 PR; -CATHETER FLUSH 10 ML SYR IV PRN; -CYAN-23 PO; -GADOBUTROL 7.5 MMOL/7.5 ML (GADAVIST) VIAL IV ONE; -LEVO500T2 PO; -NALO25TA PO; -OMEP40CA27 PO; +OMEP40CA36 PO; -OXYC-464 PO; -RT-ALBUINH INH; -[UNRECOGNIZED DRUG - OTHER] IV
== END 2019-06-08 13:46 | disposition home or self-care (01) ==
LOC: ONC 13:52
PROVIDERS: ATTEND Internal Medicine Hematology & Oncology
DX: C34.32 Malignant neoplasm of lower lobe, left bronchus or lung (principal); J43.9 Emphysema, unspecified; N39.0 Urinary tract infection, site not specified; I95.9 Hypotension, unspecified; E27.40 Unspecified adrenocortical insufficiency; M06.872 Other specified rheumatoid arthritis, left ankle and foot; M06.871 Other specified rheumatoid arthritis, right ankle and foot; M06.842 Other specified rheumatoid arthritis, left hand; M06.841 Other specified rheumatoid arthritis, right hand; E87.1 Hypo-osmolality and hyponatremia; Z98.890 Other specified postprocedural states; Z90.710 Acquired absence of both cervix and uterus; Z79.899 Other long term (current) drug therapy; Z87.891 Personal history of nicotine dependence
CPT/HCPCS: 99213

== ENCOUNTER 2019-06-08 14:29 | Outpatient (RCR) | payer OTHER | END 2019-06-28 14:42 | disposition home or self-care (01) | LOC: ONC 14:29 | PROVIDERS: ATTEND Internal Medicine Hematology & Oncology | DX: C34.32 Malignant neoplasm of lower lobe, left bronchus or lung (principal); J43.9 Emphysema, unspecified; E27.40 Unspecified adrenocortical insufficiency; M06.872 Other specified rheumatoid arthritis, left ankle and foot; M06.871 Other specified rheumatoid arthritis, right ankle and foot; M06.842 Other specified rheumatoid arthritis, left hand; M06.841 Other specified rheumatoid arthritis, right hand; Z98.890 Other specified postprocedural states; Z90.710 Acquired absence of both cervix and uterus; Z79.899 Other long term (current) drug therapy; Z87.891 Personal history of nicotine dependence | CPT/HCPCS: 99213 ==

== ENCOUNTER 2019-06-28 14:54 | Outpatient (RCR) | payer MEDICARE, OTHER ==
[~2019-06-28 14:54] MED LIST changes: +OMEP40CA27 PO; -OMEP40CA36 PO
[2019-07-15] MEDS ORDERED: OXYC-464 PO (08:14)
[2019-07-15] MEDS ORDERED: RT-ALBUINH INH (08:14)
[2019-07-15] MEDS ORDERED: CYAN-23 PO (08:14)
[2019-07-15] MEDS ORDERED: PRD10T PO (08:14)
[2019-07-21] MEDS ORDERED: [UNRECOGNIZED DRUG - OTHER] IV ×3 (11:30→14:42)
[2019-07-21] MEDS ORDERED: ATRO2DRO4 SL (12:00)
[2019-07-21] MEDS ORDERED: BISA10SU8 PR (12:00)
[2019-08-09] MEDS ORDERED: LEVO500T2 PO (11:51)
[2019-08-16] MEDS ORDERED: NALO25TA PO (14:37)
== END 2019-09-26 | disposition home or self-care (01) ==
LOC: ONC 14:54
PROVIDERS: ATTEND Internal Medicine Hematology & Oncology
DX: C34.32 Malignant neoplasm of lower lobe, left bronchus or lung (principal); J43.9 Emphysema, unspecified; E27.40 Unspecified adrenocortical insufficiency; M06.872 Other specified rheumatoid arthritis, left ankle and foot; M06.871 Other specified rheumatoid arthritis, right ankle and foot; M06.842 Other specified rheumatoid arthritis, left hand; M06.841 Other specified rheumatoid arthritis, right hand; I95.89 Other hypotension; D64.9 Anemia, unspecified; Z79.899 Other long term (current) drug therapy; Z87.891 Personal history of nicotine dependence; Z79.890 Hormone replacement therapy; Z90.710 Acquired absence of both cervix and uterus
CPT/HCPCS: 99213

== ENCOUNTER 2019-07-14 12:10 | Inpatient (IN) | payer MEDICARE ==
[~2019-07-14] VITALS: Ht 170.1 cm; Wt 65.0 kg
[~2019-07-14 12:10] MED LIST changes: -OMEP40CA27 PO; +OMEP40CA36 PO
--- NOTE | 2019-07-14 12:31 | ED Abdominal Pain ---
General Chief Complaint: Abdominal/GI Problems Stated Complaint: ABD PAIN Source of Information: Patient Exam Limitations: No Limitations (KOREY FLEMING,MED STUDENT) History of Present Illness Date Seen by Provider: Jul 14, 2019 Time Seen by Provider: 12:14 Initial Comments Pt presents to ED w/ chief complaint of abdominal pain via EMS. She states her pain is diffuse, achy, constant and has gradually increased in severity since onset three days ago. She also describes R hip and back pain she associates with abdominal pain. Her oncologist in [place] recently increased her percocet dosing to 7.5mg from 5mg about 8 days ago. She has not had a bowel movement in four days, which is abnormal for her, and she attributes her pain to constipation. 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 Endorses nausea and constipation and headache. She denies fever, chills, vomiting. Timing/Duration: 3-4 Days Severity/Quality: Severe, Cramping Location: Generalized Abdomen Radiation: Back, Groin Activities at Onset: None Modifying Factors: Worsens With Movement, Worsens With Palpation Associated Symptoms: No Diaphoresis, No Fever/Chills; Fatigue, Headache, Nausea/Vomiting (KOREY FLEMING,MED STUDENT) Allergies and Home Medications Allergies Coded Allergies: codeine (Unverified Adverse Reaction, Mild, n/v, 11/14/11) morphine (Unverified Adverse Reaction, Mild, n/v, 11/14/11) Home Medications Ciprofloxacin HCl 500 Mg Tablet, 500 MG PO BID Prescribed by: SHANNAN AYALA on 01/31/19 141 Fluconazole 150 Mg Tablet, 150 MG PO DAILY PRN for THRUSH, (Reported) 15 DAY SUPPLY FILLED 01-17-19 Gabapentin 600 Mg Tablet, 300 MG PO TID, (Reported) TAKES 1/2 (600MG) TABLET Metronidazole 500 Mg Tablet, 500 MG PO BID Prescribed by: SHANNAN AYALA on 01/31/191417 Omeprazole 40 Mg Capsule.dr, 40 MG PO DAILY, (Reported) Oxycodone HCl/Acetaminophen 1 Each Tablet, 1 TAB PO Q8H PRN for PAIN-MODERATE, (Reported) Prednisone 10 Mg Tab, 20 MG PO DAILY, (Reported) 15 DAY SUPPLY FILLED 01-17-19 TAKES 2 (10MG) TABLETS Promethazine HCl 25 Mg Tablet, 25 MG PO Q6H PRN for NAUSEA/VOMITING-2ND LINE, (Reported) Patient Home Medication List Home Medication List Reviewed: Yes (KOREY FLEMING MED STUDENT) Review of Systems Review of Systems Constitutional: No chills, No fever; malaise EENTM: No Eye Pain, No Ear Pain, No Mouth Pain Respiratory: Denies Cough, Denies SOA With Exertion, Denies SOA at Rest Cardiovascular: Denies Chest Pain; Lightheadedness Gastrointestinal: Denies Abdomen Distended; Abdominal Pain, Constipated, Difficulty Swallowing, Nausea, Poor Appetite; Denies Poor Fluid Intake, Denies Vomiting Genitourinary: Denies Discharge, Denies Incontinence, Denies Pain Musculoskeletal: back pain, joint pain Skin: No lesions, No lumps, No pruritus, No rash Psychiatric/Neurological: Denies Anxiety, Denies Depressed; Headache Endocrine: Denies Intolerance to Cold, Denies Intolerance to Heat Hematologic/Lymphatic: Denies Blood Clots, Denies Easy Bruising (KOREY FLEMING MED STUDENT) Past Zebustz-Rnzdtd-Kemgon Hx Patient Social History Type Used: Cigarettes Recent Hopitalizations: No (KOREY FLEMING MED STUDENT) Immunizations Up To Date Tetanus Booster (TDap): Unknown (KOREY FLEMING MED STUDENT) Seasonal Allergies Seasonal Allergies: No (KOREY FLEMING MED STUDENT) Past Medical History Surgeries: Yes (PORT RIGHT CHEST) Hysterectomy, Orthopedic Respiratory: Yes (LUNG CANCER) COPD, Emphysema Currently Using CPAP: No Currently Using BIPAP: No Cardiac: No Neurological: Yes (CANCER-RELATED NEUROPATHY) Neuropathy 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, 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 Genitourinary: Yes Bladder Infection Gastrointestinal: No Musculoskeletal: No Endocrine: No HEENT: No Cancer: Yes Lung What Type of Treatment Did You: Chemotherapy Psychosocial: No Integumentary: No Blood Disorders: No Adverse Reaction/Blood Tranf: No (KOREY FLEMING MED STUDENT) Family Medical History Cancer, CAD Over 55 Years Old, Diabetes, Hypertension (KOREY FLEMING MED STUDENT) Physical Exam Vital Signs Vital Signs - First Documented 07/14/19 12:10 Temp 37.9 Pulse 96 Resp 16 B/P (MAP) 87/54 (65) Pulse Ox 94 O2 Delivery Nasal Cannula O2 Flow Rate 2.00 (DUKE QUIÑONES) Vital Signs Capillary Refill : (HUNDERTMARK,KOREY,MED STUDENT) Height/Weight/BMI Height: 5'7.00" Weight: 124lbs. 8.0oz. [id number]; 20.9 BMI Method:Stated General Appearance: moderate distress, thin HEENT: PERRL/EOMI, normal ENT inspection, TMs normal, pharynx normal Neck: non-tender, supple Respiratory: chest non-tender, lungs clear, normal breath sounds, no respiratory distress, no accessory muscle use Cardiovascular: no edema, no gallop, no murmur, tachycardia Peripheral Pulses: 2+ Dorsalis Pedis (R), 2+ Left Dors-Pedis (L), 2+ Radial Pulses (R), 2+ Radial Pulses (L) Gastrointestinal: No abnormal bowel sounds, No distended, No guarding, No rebound; tenderness (diffuse, lida around RLQ and LUQ); No mass Extremities: no calf tenderness, normal capillary refill Neurologic/Psychiatric: alert, oriented x 3 Skin: normal color, warm/dry (KOREY FLEMING,MED STUDENT) General Appearance: moderate distress, thin, other (chronically ill appearing female) HEENT: PERRL/EOMI, normal ENT inspection, TMs normal, pharynx normal Neck: non-tender, supple Respiratory: chest non-tender, lungs clear, normal breath sounds, no respiratory distress, no accessory muscle use Cardiovascular: normal peripheral pulses, no edema, no gallop, no murmur, tachycardia Gastrointestinal: soft, no pulsatile mass, guarding (mild guarding to the RLQ); No rebound; tenderness (diffuse, lida around RLQ and LUQ), mass (right colon palpable on exam) Extremities: no pedal edema, no calf tenderness, normal capillary refill Back: normal inspection, no CVA tenderness, muscle spasm, vertebral tenderness Neurologic/Psychiatric: alert, oriented x 3 Skin: normal color, warm/dry (DUKE QUIÑONES) Focused Exam Lactate Level 07/14/19 00:00: (DUKE QUIÑONES) Lactic Acid Level Laboratory Tests Test 07/14/19 00:00 (DUKE QUIÑONES) Progress/Results/Core Measures Results/Orders Lab Results Laboratory Tests Test 07/14/19 00:00 07/14/19 12:36 Range/Units White Blood Count 6.4 4.3-11.0 10^3/uL Red Blood Count 3.89 L 4.35-5.85 10^6/uL Hemoglobin 11.6 11.5-16.0 G/DL Hematocrit 35 35-52 % Mean Corpuscular Volume 90 80-99 FL Mean Corpuscular Hemoglobin 30 25-34 PG Mean Corpuscular Hemoglobin Concent 33 32-36 G/DL Red Cell Distribution Width 14.7 H 10.0-14.5 % Platelet Count 225 130-400 10^3/uL Mean Platelet Volume 8.4 7.4-10.4 FL Neutrophils (%) (Auto) 74 42-75 % Lymphocytes (%) (Auto) 14 12-44 % Monocytes (%) (Auto) 11 0-12 % Eosinophils (%) (Auto) 2 0-10 % Basophils (%) (Auto) 0 0-10 % Neutrophils # (Auto) 4.7 1.8-7.8 X 10^3 Lymphocytes # (Auto) 0.9 L 1.0-4.0 X 10^3 Monocytes # (Auto) 0.7 0.0-1.0 X 10^3 Eosinophils # (Auto) 0.1 0.0-0.3 10^3/uL Basophils # (Auto) 0.0 0.0-0.1 10^3/uL (DUKE QUIÑONES) My Orders Orders - DU[facility] QUIÑONES Ed Iv/Invasive Line Start (07/14/19 12:20) Cbc With Automated Diff (07/14/19 12:20) Comprehensive Metabolic Panel (07/14/19 12:20) Lipase (07/14/19 12:20) Ua Culture If Indicated (07/14/19 12:20) Ondansetron Injection (Zofran Injectio (07/14/19 12:45) Ns Iv 1000 Ml (Sodium Chloride 0.9%) (07/14/19 12:34) Fentanyl Injection (Sublimaze Injection (07/14/19 12:34) Blood Culture (07/14/19 12:34) O2 (07/14/19 12:34) Lactic Acid Analyzer (07/14/19 12:34) Ct Abdomen/Pelvis W (07/14/19 12:34) Chest 1 View, Ap/Pa Only (07/14/19 12:34) Iohexol Injection (Omnipaque 350 Mg/Ml 1 (07/14/19 13:15) Received Contrast (Hold Metformin- Contr (07/14/19 13:15) Ns (Ivpb) (Sodium Chloride 0.9% Ivpb Bag (07/14/19 13:15) (DUKE QUIÑONES) Medications Given in ED Current Medications Medications Dose Ordered Sig/Omari Route Start Time Stop Time Status Last Admin Dose Admin Ondansetron HCl 4 mg ONCE ONCE IVP 07/14/19 12:45 07/14/19 12:46 DC 07/14/19 12:44 4 MG Sodium Chloride 1,000 ml @ 0 mls/hr Q0M ONCE IV 07/14/19 12:34 07/14/19 12:36 DC 07/14/19 12:45 1,000 MLS/HR (DUKE QUIÑONES) Vital Signs/I&O 07/14/19 07/14/19 12:10 12:10 Temp 37.9 Pulse 96 Resp 16 B/P (MAP) 87/54 (65) Pulse Ox 94 92 O2 Delivery Nasal Cannula Nasal Cannula O2 Flow Rate 2.00 2.00 (DUKE QUIÑONES) Progress Progress Note : Time: 12:39 Progress Note Seen and evaluated. Ordered acute abdominal series, CMP and CBC. With hx of metastatic disease ordering xray of thoracic and lumbar spine. Will administer fentanyl for pain. (KOREY FLEMING,MED STUDENT) Diagnostic Imaging Diagonstic Imaging: Xray Plain Films/CT/US/NM/MRI: chest Reviewed: Reviewed by Me (radiology report reviewed) Diagonstic Imaging: CT Plain Films/CT/US/NM/MRI: abdomen, pelvis Reviewed: Reviewed by Me (radiology report reviewed by me) (DUKE QUIÑONES) Departure Impression Condition: Improved Departure-Patient Inst. Referrals: [facility] (PCP) Primary Care Physician ESPINOZA CERVANTES APRN (Family) Primary Care Physician KOREY FLEMING,MED STUDENT Jul 14, 2019 12:31 DUKE QUIÑONES Jul 14, 2019 13:15
[2019-07-14] MEDS ORDERED: fentaNYL INJECTION 100 MCG/2 ML AMP IVP STA ×3 (12:34→19:06)
[2019-07-14] MEDS ORDERED: NS IV 1000 ML 1,000 ML IV ONE ×2 (12:34→14:35)
[2019-07-14 12:43] LABS: BASOPHILS % (AUTO) 0 % (0-10); EOSINOPHILS # (AUTO) 0.1 10^3/uL (0.0-0.3); EOSINOPHILS % (AUTO) 2 % (0-10); HEMATOCRIT 35 % (35-52); HEMOGLOBIN 11.6 G/DL (11.5-16.0); LYMPHOCYTES # (AUTO) 0.9 X 10^3 (1.0-4.0); LYMPHOCYTES % (AUTO) 14 % (12-44); MEAN CORPUSCULAR HEMOGLOBIN 30 PG (25-34); MEAN CORPUSCULAR HGB CONC 33 G/DL (32-36); MEAN CORPUSCULAR VOLUME 90 FL (80-99); MEAN PLATELET VOLUME 8.4 FL (7.4-10.4); MONOCYTES # (AUTO) 0.7 X 10^3 (0.0-1.0); MONOCYTES % (AUTO) 11 % (0-12); NEUTROPHILS # (AUTO) 4.7 X 10^3 (1.8-7.8); NEUTROPHILS % (AUTO) 74 % (42-75); PLATELET COUNT 225 10^3/uL (130-400); RED CELL DISTRIBUTION WIDTH 14.7 % (10.0-14.5); WHITE BLOOD COUNT 6.4 10^3/uL (4.3-11.0)
[2019-07-14] MEDS ORDERED: ONDANSETRON 4 MG/2 ML (SDV) Z0FRAN IVP ONE (12:45)
[2019-07-14] MEDS ORDERED: HOLD METFORMIN - RECEIVED CONTRAST 20 ML VIAL IV SCH (13:15)
[2019-07-14] MEDS ORDERED: NS 100 ML (IVPB) BAG IV ONE (13:15)
[2019-07-14] MEDS ORDERED: IOHEXOL 350 MG/ML 100 ML (OMNIPAQUE 350) VIAL IV ONE (13:15)
[2019-07-14 13:18] LABS: ALANINE AMINOTRANSFERASE 10 U/L (0-55); ALBUMIN 2.8 GM/DL (3.2-4.5); ALKALINE PHOSPHATASE 116 U/L (40-136); BILIRUBIN,TOTAL 0.5 MG/DL (0.1-1.0); BUN/CREATININE RATIO 13; CARBON DIOXIDE 19 MMOL/L (21-32); CHLORIDE 106 MMOL/L (98-107); GFR ESTIMATED > 60; GLUCOSE 73 MG/DL (70-105); LIPASE 9 U/L (8-78); POTASSIUM 3.6 MMOL/L (3.6-5.0); SODIUM 134 MMOL/L (135-145); TOTAL PROTEIN 5.4 GM/DL (6.4-8.2)
--- NOTE | 2019-07-14 13:34 | Diagnostic Imaging Report ---
EXAMINATION: Portable erect AP chest at 0117 hours. INDICATION: Lung cancer. FINDINGS: The heart size is stable when compared to the prior exam of 01/28/2019. The abnormal mass in the left lung base seen on prior study is again evident. The mass may be somewhat smaller than on the prior exam. The mass is now partially obscured by atelectasis/infiltrate however. Also, a few strands of atelectasis/infiltrate have developed in the right costophrenic angle as well. The lung apices are clear. The mediastinum is not widened. The osseous structures are intact. The postsurgical/posttraumatic changes involving the left humerus seen previously are again evident. The right-sided Port-A-Cath is unchanged in position. IMPRESSION: 1. The appearance of the chest has worsened since the prior study as pneumonia/atelectasis has developed in the left lung base and in the right costophrenic angle. A follow-up exam would be recommended for continued evaluation. 2. The lung mass on the left seen previously does seem somewhat smaller. Dictated by: Dictated on workstation # [id number]
[2019-07-14] MEDS ORDERED: HYDROmorphone 2 MG/ML VIAL (DILAUDID) IV ONE ×2 (14:00→15:30)
[2019-07-14 14:06] LABS: BUN/CREATININE RATIO 12; CALCIUM 6.8 MG/DL (8.5-10.1); CARBON DIOXIDE 21 MMOL/L (21-32); CHLORIDE 103 MMOL/L (98-107); CREATININE SERUM 0.73 MG/DL (0.60-1.30); GFR ESTIMATED > 60; GLUCOSE 80 MG/DL (70-105); POTASSIUM 3.6 MMOL/L (3.6-5.0); SODIUM 134 MMOL/L (135-145)
--- NOTE | 2019-07-14 14:32 | Diagnostic Imaging Report ---
PROCEDURE: CT abdomen and pelvis with contrast. TECHNIQUE: Multiple contiguous axial images were obtained through the abdomen and pelvis after administration of intravenous contrast. Auto Exposure Controls were utilized during the CT exam to meet ALARA standards for radiation dose reduction. INDICATION: Abdominal pain and constipation. Patient has known lung cancer. COMPARISON: Correlation is made with prior CT from 05/11/2019. FINDINGS: Imaging through the lung bases again demonstrates centrally necrotic mass in the left lower lobe, likely accounting for patient's known breast cancer. This was not entirely included on this study but measures approximately 3.7 x 4.7 cm compared with approximately 4.1 x 3.6 cm. A small left-sided effusion is noted which has increased since prior CT. Right base does show linear opacities, consistent with some scarring or atelectasis. Right lobe hepatic cyst is stable. There is moderate distention to the gallbladder measuring 9.4 x 5.6 cm. Extrahepatic bile duct appears to be normal in caliber. The pancreas and spleen are unremarkable. No adrenal mass is detected. Kidneys are unremarkable. Aorta is heavily calcified but nonaneurysmal. Bowel loops appear to be nonobstructed. There is moderate stool in the colon. There is diverticulosis of the sigmoid and descending colon. There is a suggestion of very mild stranding adjacent to the descending colon near the junction with the sigmoid. Very mild or early diverticulitis cannot be excluded. There is no free fluid or fluid collection. Bladder is unremarkable. No definite abdominal or pelvic lymphadenopathy is seen. Numerous sclerotic lesions throughout the lumbar spine and pelvis are noted which appear to be increased when compared with prior exam, consistent with osteoblastic metastatic disease. IMPRESSION: 1. Left lower lobe lung mass. Left basilar pleural fluid has increased slightly since prior exam from 05/11/2019. 2. Gallbladder hydrops. Gallbladder ultrasound may be useful for further evaluation. 3. Colonic diverticulosis. There is questionable very mild diverticulitis near the junction of the descending colon and sigmoid. No abscess formation or bowel obstruction is seen. 4. Progression of osseous metastatic disease. Dictated by: Dictated on workstation # [id number]
[2019-07-14] MEDS ORDERED: cefTRIAXone FOR IV USE 1,000 MG in WATER (STERILE) FOR INJECTION 10 ML IV ONE (14:45)
[2019-07-14 15:37] LABS: BILIRUBIN,URINE NEGATIVE (NEGATIVE); CLARITY,URINE CLEAR; COLOR,URINE YELLOW; GLUCOSE, URINE (UA) NEGATIVE (NEGATIVE); KETONES,URINE 1+ (NEGATIVE); LEUKOCYTE ESTERASE ,URINE NEGATIVE (NEGATIVE); NITRITE,URINE NEGATIVE (NEGATIVE); PROTEIN,URINE NEGATIVE (NEGATIVE)
[2019-07-14 15:45] LABS: PHOSPHORUS 1.8 MG/DL (2.3-4.7)
[2019-07-14 15:47] LABS: BACTERIA,URINE MODERATE /HPF
[2019-07-14] MEDS ORDERED: VANCOMYCIN INJECTION 1,000 MG in NS (IVPB) 250 ML IV ONE (16:15)
[2019-07-14 16:28] LABS: MAGNESIUM 1.7 MG/DL (1.6-2.4)
[2019-07-14] MEDS ORDERED: CALCIUM GLUC. 10% 4.65 MEQ/10 ML VIAL IV ONE (17:00)
[2019-07-14] MEDS ORDERED: KETAMINE/NaCl 50 MG/5 ML SYRINGE (ED ONLY) IV ONE (17:00)
[2019-07-14] MEDS ORDERED: CALCIUM GLUCONATE 10% INJ 4.65 MEQ in NS (IVPB) 50 ML IV ONE (17:00)
--- NOTE | 2019-07-14 17:16 | Diagnostic Imaging Report ---
PROCEDURE: US Gallbladder. TECHNIQUE: Multiple real-time grayscale images were obtained over the right upper quadrant in various projections. INDICATION: Generalized abdominal pain. COMPARISON: None. FINDINGS: The size and echogenicity of the liver is normal. There is no mass or intrahepatic biliary duct dilatation. Portal venous flow is normal. The common bile duct is normal for age at 7 mm. The gallbladder is slightly distended and contains some sludge. No gallbladder wall thickening or cholelithiasis is seen. There is no pericholecystic fluid. The pancreas, IVC, and aorta are obscured by bowel gas. Right kidney is unremarkable. IMPRESSION: 1. Slightly distended gallbladder containing sludge. No obvious cholelithiasis or cholecystitis is seen. 2. No ascites. Dictated by: Dictated on workstation # [id number]
[2019-07-14] MEDS ORDERED: oxyCODONE/APAP 10/325MG (PERCOCET 10) TABLET PO ONE (20:00)
[2019-07-14] MEDS ORDERED: BISACODYL 10 MG SUPP (DULCOLAX) PR PRN (21:45)
[2019-07-14] MEDS ORDERED: SALIVA STIMULANT MOUTH SPRAY (BIOTENE) 1.5 OZ MM PRN (21:45)
[2019-07-14] MEDS ORDERED: ACETAMINOPHEN 650 MG SUPP (TYLENOL) PR PRN (21:45)
[2019-07-14] MEDS ORDERED: HYDROmorphone 20 MG/NS 100 ML PCA IV PRN ×2 (21:45)
[2019-07-14] MEDS ORDERED: BISACODYL 5 MG (DULCOLAX) TABLET PO PRN (21:45)
[2019-07-14] MEDS ORDERED: SENNA W/DOCUSATE (SENOKOT S) TABLET PO PRN (21:45)
[2019-07-14] MEDS ORDERED: GLYCOPYRROLATE 0.2 MG/ML (ROBINUL) 2 ML VIAL IV PRN (21:45)
[2019-07-14] MEDS ORDERED: diphenhydrAMINE 25 MG TAB (BENADRYL) PO PRN (21:45)
[2019-07-14] MEDS ORDERED: RT-ALBUTEROL/IPRATROPIUM 3 ML (DUONEB) VIAL INH PRN (21:45)
[2019-07-14] MEDS: NS IV 1000 ML 1,000 ML IV SCH (22:00)
[2019-07-14] MEDS: LORazepam INJ 2 MG/ML (ATIVAN) VIAL IV PRN (22:03)
[2019-07-14 22:28] VITALS: BP 96/52
[2019-07-15 00:49] VITALS: BP 155/73
[2019-07-15] MEDS: oxyCODONE/APAP 7.5-325 MG (PERCOCET 7.5) TABLET PO PRN ×3 (01:38→11:12)
[2019-07-15 01:39] VITALS: BP 105/75
[2019-07-15] MEDS: ONDANSETRON 4 MG/2 ML (SDV) Z0FRAN IV PRN ×3 (01:45→18:39)
[2019-07-15 02:49] VITALS: BP 91/54
[2019-07-15 03:49] VITALS: BP 105/53
[2019-07-15] MEDS: NS IV 1000 ML 1,000 ML IV SCH (06:00)
[2019-07-15] MEDS ORDERED: PRD10T PO (08:14)
[2019-07-15] MEDS ORDERED: RT-ALBUINH INH (08:14)
[2019-07-15] MEDS ORDERED: OXYC-464 PO (08:14)
[2019-07-15] MEDS ORDERED: CYAN-23 PO (08:14)
[2019-07-15] MEDS: NICOTINE 7 MG (NICODERM) PATCH TD SCH (09:01)
[2019-07-15] MEDS ORDERED: HYDROmorphone PF INJECTION 20 MG in NS (IVPB) 100 ML IV PRN (11:45)
--- NOTE | 2019-07-15 12:26 | History & Physical-Hospitalist ---
History of Present Illness HPI/Chief Complaint CC: Severe incapacitating pain from lung cancer with mets admitted for pain control and end of life care HPI: This is a 64yoWF clinic patient of [facility] who previously was treated by Dr Owens at [facility] but transferred care to [facility] in [place] who presented to the [facility] ER with severe pain. After multiple tests revealing no acute infection of treatable condition she agreed for DNR and end of life care so she was placed on Dilaudid SLOT SERVICE SPECIALIST along with Percocet and family at bedside. Patient reports she is getting improved pain control but appears to still be in severe pain so will increase the continuous rate to 0.4 and remove max dose. Family's questions were all answered. Source: patient, family Exam Limitations: clinical condition Date Seen 07/15/19 Time Seen by a Provider: 11:30 Attending Physician Tish Salcedo DO [facility] [place] Referring Physician Date of Admission Jul 14, 2019 at 20:15 Home Medications & Allergies Home Medications Reviewed patient Home Medication Reconciliation performed by pharmacy medication reconciliations printer technician and/or nursing. Patients Allergies have been reviewed. Allergies Allergies Coded Allergies codeine (Unverified Adverse Reaction, Mild, n/v, 11/14/11) morphine (Unverified Adverse Reaction, Mild, n/v, 11/14/11) Past Kcyzorw-Lhtmnw-[id number] Hx Past Med/Social Hx: Reviewed Nursing Past Med/Soc Hx, Reviewed and Corrections made Patient Social History Marrital Status: single Employed/Student: retired Alcohol Use: Denies Use Recreational Drug Use: No Smoking Status: Current Everyday Smoker Type Used: Cigarettes 2nd Hand Smoke Exposure: Yes Physical Abuse Screen: No Sexual Abuse: No Recent Foreign Travel: No Contact w/other who traveled: No Recent Hopitalizations: No Recent Infectious Disease Expo: No Immunizations Up To Date Tetanus Booster (TDap): Unknown Date of Influenza Vaccine: May 24, 2019 Seasonal Allergies Seasonal Allergies: No Past Medical History Surgeries: Hysterectomy, Orthopedic Respiratory: COPD Currently Using CPAP: No Currently Using BIPAP: No Neurological: Neuropathy Hysterectomy, Menopausal Genitourinary: Bladder Infection Cancer: Lung What Type of Treatment Did You: Chemotherapy History of Blood Disorders: No Adverse Reaction to Blood Olguin: No Family History Cancer, CAD Over 55 Years Old, Diabetes, Hypertension Review of Systems Constitutional: see HPI, malaise, weakness Musculoskeletal: back pain, muscle pain, muscle cramps Physical Exam Physical Exam Vital Signs Vital Signs - First Documented 07/14/19 12:10 Temp 37.9 Pulse 96 Resp 16 B/P (MAP) 87/54 (65) Pulse Ox 94 O2 Delivery Nasal Cannula O2 Flow Rate 2.00 Capillary Refill : Less Than 3 SecondsLess Than 3 Seconds Height, Weight, BMI Height: 5'7.00" Weight: 124lbs. 8.0oz. [id number]; 22.46 BMI Method:Stated General Appearance: Moderate Distress Respiratory: Lungs Clear Cardiovascular: Regular Rate, Rhythm Neurologic/Psychiatric: Alert, Disoriented Results Results/Procedures Labs Laboratory Tests 07/14/19 12:36 07/14/19 13:45 Patient resulted labs reviewed. Assessment/Plan Admission Diagnosis Assessment: Severe intractable cancer pain deemed incurable and placed on comfort care and end of life care status Smoker Lung cancer with mets Plan: BM regimen Dilaudid SLOT SERVICE SPECIALIST DNR Admission Status: Observation Diagnosis/Problems Diagnosis/Problems (1) Metastatic lung cancer (metastasis from lung to other site) (2) Intractable abdominal pain Clinical Quality Measures DVT/VTE Risk/Contraindication: Risk Factor Score Per Nursin RFS Level Per Nursing on Admit: 4+=Very High TISH SALCEDO DO Jul 15, 2019 12:26
[2019-07-15] MEDS: PROMETHAZINE INJ 25 MG/ML (PHENERGAN) AMP IV PRN (15:11)
[2019-07-15] MEDS ORDERED: NS IV 1000 ML 0 ML ONE (18:40)
[2019-07-15] MEDS: NS IV 500 ML PCA CARRIER FLUID IV SCH (18:47)
[2019-07-15] MEDS: LORazepam INJ 2 MG/ML (ATIVAN) VIAL IV PRN (21:32)
[2019-07-15] MEDS: ATROPINE 1% OPHTHALMIC SOLN 2 ML SL PRN (21:39)
[2019-07-16] MEDS: HYDROmorphone PF INJECTION 20 MG in NS (IVPB) 100 ML IV PRN ×2 (01:27→22:31)
[2019-07-16] MEDS: PROMETHAZINE INJ 25 MG/ML (PHENERGAN) AMP IV PRN (08:59)
[2019-07-16] MEDS: NICOTINE 7 MG (NICODERM) PATCH TD SCH (08:59)
[2019-07-16] MEDS: NS IV 500 ML PCA CARRIER FLUID IV SCH (11:41)
--- NOTE | 2019-07-16 12:08 | Progress Note - Hospitalist ---
Subjective HPI/CC On Admission Date Seen by Provider: Jul 16, 2019 Time Seen by Provider: 11:00 CC: Severe incapacitating pain from lung cancer with mets admitted for pain control and end of life care HPI: This is a 64yoWF clinic patient of [facility] who previously was treated by Dr Owens at [facility] but transferred care to [facility] in [place] who presented to the [facility] ER with severe pain. After multiple tests reveal ing no acute infection of treatable condition she agreed for DNR and end of life care so she was placed on Dilaudid RECORD FILING CLERK along with Percocet and family at bedside. Patient reports she is getting improved pain control but appears to still be in severe pain so will increase the continuous rate to 0.4 and remove max dose. Family's questions were all answered. Subjective/Events-last exam 10 family members at the bedside Patient appears to have much improved pain RECORD FILING CLERK Dilaudid 0.4 seems to be working well for the patient No BM and is sedated and is not waking up much anymore Updated family Review of Systems General: Other (sedated) Focused Exam Lactate Level 07/14/19 13:23: Lactic Acid Level 0.72 Objective Exam Vital Signs Vital Signs Date Time Temp Pulse Resp B/P (MAP) Pulse Ox O2 Delivery O2 Flow Rate FiO2 07/16/19 08:00 Nasal Cannula 3.00 07/16/19 07:00 24 07/15/19 07:34 90 07/15/19 03:49 36.5 91 105/53 (70) Capillary Refill : Less Than 3 SecondsLess Than 3 Seconds General Appearance: No Apparent Distress, Other (sleeping soundly) Results/Procedures Lab Patient resulted labs reviewed. Assessment/Plan Assessment and Plan Assess & Plan/Chief Complaint Assessment: Advanced and mets lung cancer Smoker Plan: RECORD FILING CLERK Dilaudid Diagnosis/Problems Diagnosis/Problems (1) Metastatic lung cancer (metastasis from lung to other site) (2) Intractable abdominal pain Clinical Quality Measures DVT/VTE Risk/Contraindication: Risk Factor Score Per Nursin RFS Level Per Nursing on Admit: 4+=Very High MADDY CHENG DO Jul 16, 2019 12:08
[2019-07-16] MEDS: ONDANSETRON 4 MG/2 ML (SDV) Z0FRAN IV PRN (22:01)
[2019-07-16] MEDS: oxyCODONE/APAP 7.5-325 MG (PERCOCET 7.5) TABLET PO PRN (22:01)
[2019-07-16] MEDS: ATROPINE 1% OPHTHALMIC SOLN 2 ML SL PRN (22:45)
[2019-07-17] MEDS: PROMETHAZINE INJ 25 MG/ML (PHENERGAN) AMP IV PRN (00:35)
[2019-07-17] MEDS: NS IV 500 ML PCA CARRIER FLUID IV SCH ×3 (04:39→19:38)
[2019-07-17] MEDS: NICOTINE 7 MG (NICODERM) PATCH TD SCH (09:25)
[2019-07-17] MEDS ORDERED: POLYETHYLENE GLYCOL 17 GM (MIRALAX) PACK ONE (13:31)
[2019-07-17] MEDS: POLYETHYLENE GLYCOL 17 GM (MIRALAX) PACK PO SCH ×2 (13:46→21:20)
--- NOTE | 2019-07-17 15:34 | Progress Note ---
Subjective Subjective/Events-last exam Sleeping comfortably, daughter in law at bedside denies concerns. Objective Exam Last Set of Vital Signs Vital Signs Date Time Temp Pulse Resp B/P (MAP) Pulse Ox O2 Delivery O2 Flow Rate FiO2 07/17/19 08:01 Nasal Cannula 6.00 07/17/19 07:00 24 07/15/19 07:34 90 07/15/19 03:49 36.5 91 105/53 (70) Capillary Refill : Less Than 3 SecondsLess Than 3 Seconds I&O Intake and Output 07/17/19 00:00 Intake Total 850 ml Output Total 1800 ml Balance -950 ml Intake Oral 350 ml IV Total 500 ml Output Urine Total 1800 ml General: No Acute Distress Psych/Mental Status: Other (resting comfortably) Results/Procedures Lab Microbiology 07/14/19 Urine Culture - Final, Complete 3 or more isolates 07/14/19 Blood Culture - Preliminary, Resulted No growth Assessment/Plan Assessment/Plan (1) Metastatic lung cancer (metastasis from lung to other site) Assessment & Plan: On comfort measures, sleeping easily this am, monitor for signs of pain or concerns. (2) Intractable abdominal pain Assessment & Plan: Managed on HEADLINER INSTALLER currently Clinical Quality Measures DVT/VTE Risk/Contraindication: Risk Factor Score Per Nursin RFS Level Per Nursing on Admit: 4+=Very High LV LORA MD Jul 17, 2019 15:34
[2019-07-17] MEDS: HYDROmorphone PF INJECTION 20 MG in NS (IVPB) 100 ML IV PRN (21:17)
[2019-07-18] MEDS: PROMETHAZINE INJ 25 MG/ML (PHENERGAN) AMP IV PRN ×2 (05:41→21:00)
[2019-07-18] MEDS: POLYETHYLENE GLYCOL 17 GM (MIRALAX) PACK PO SCH ×3 (09:21→22:53)
[2019-07-18] MEDS: NICOTINE 7 MG (NICODERM) PATCH TD SCH (09:21)
[2019-07-18] MEDS: NS IV 500 ML PCA CARRIER FLUID IV SCH ×2 (10:51→11:32)
[2019-07-18] MEDS: HYDROmorphone PF INJECTION 20 MG in NS (IVPB) 100 ML IV PRN (12:35)
--- NOTE | 2019-07-18 14:06 | Progress Note ---
Subjective Subjective/Events-last exam Pt awake this morning, continues to have pain and feels sick to her stomach. Tried suppository and some oral meds for constipation, but didn't help, added miralax yesterday but she is not tolerating oral well at all, they are wondering about any other option. Objective Exam Last Set of Vital Signs Vital Signs Date Time Temp Pulse Resp B/P (MAP) Pulse Ox O2 Delivery O2 Flow Rate FiO2 07/18/19 13:15 36.5 07/18/19 08:02 Nasal Cannula 5.00 07/18/19 07:30 22 07/15/19 07:34 90 07/15/19 03:49 91 105/53 (70) Capillary Refill : Less Than 3 SecondsLess Than 3 Seconds I&O Intake and Output 07/18/19 00:00 Intake Total 402 ml Output Total 1000 ml Balance -598 ml Intake Oral 300 ml IV Total 102 ml Output Urine Total 1000 ml General: Alert, Mild Distress (appears in pain) Lungs: Clear to Auscultation, Normal Air Movement Heart: Regular Rate, No Murmurs Abdomen: Normal Bowel Sounds, Soft Neuro: Normal Speech Psych/Mental Status: Other (drowsy) Results/Procedures Lab Microbiology 07/14/19 Urine Culture - Final, Complete 3 or more isolates 07/14/19 Blood Culture - Preliminary, Resulted No growth Assessment/Plan Assessment/Plan (1) Metastatic lung cancer (metastasis from lung to other site) Assessment & Plan: On comfort measures. 07/18 discussed in more detail with son and patient today, she was just seen at [facility] in [place] for inital eval and had first treatment 2-3 days prior to admission. She had chemo and radiation before going to [facility]. Discussed that with metastatic disease, no treatment is likely to be curative and they stated they did not realize that and do note that with how much pain she is in, they agree it may not be best to try to continue palliative treatments. I did tell them I would contact Dr. Tello's office- they confirmed treatment is not intended to be curative and that she has had one dose of immunotherapy which may take some time to show any benefit and also suggested that at times an immune response can cause some reaction, so could try prednisone to see if it helps her symptoms. Family would like to have list of hospices to consider. (2) Intractable abdominal pain Assessment & Plan: Managed on NURSING AGENCY MANAGER currently 07/18 requiring equivalent of over 480 mg PO morphine in 24 hours, possible contribution of constipation, discussed enema since not tolerating oral well, will try Relistor Clinical Quality Measures DVT/VTE Risk/Contraindication: Risk Factor Score Per Nursin RFS Level Per Nursing on Admit: 4+=Very High LV LORA MD Jul 18, 2019 14:06
[2019-07-18] MEDS ORDERED: METHYLNALTREXONE 12 MG/0.6 ML (RELISTOR) VIAL SQ NR (14:30)
[2019-07-18] MEDS: predniSONE 20 MG TAB PO SCH (15:23)
[2019-07-18] MEDS: ONDANSETRON 4 MG/2 ML (SDV) Z0FRAN IV PRN (16:22)
[2019-07-19] MEDS: predniSONE 20 MG TAB PO SCH (06:02)
[2019-07-19] MEDS: HYDROmorphone PF INJECTION 20 MG in NS (IVPB) 100 ML IV PRN (09:16)
[2019-07-19] MEDS: NICOTINE 7 MG (NICODERM) PATCH TD SCH (09:21)
[2019-07-19] MEDS: POLYETHYLENE GLYCOL 17 GM (MIRALAX) PACK PO SCH ×3 (09:22→21:42)
--- NOTE | 2019-07-19 12:18 | Progress Note ---
Subjective Subjective/Events-last exam Afebrile, states she is feeling slightly better. Still [facility] about [facility]. Discussed again that therapy is not curative and also that they did note that she could not receive further immunotherapy until prednisone down to 5 mg daily. Objective Exam Last Set of Vital Signs Vital Signs Date Time Temp Pulse Resp B/P (MAP) Pulse Ox O2 Delivery O2 Flow Rate FiO2 07/19/19 08:00 90 Mechanical Ventilator 5.00 07/19/19 07:00 20 07/18/19 13:15 36.5 07/15/19 03:49 91 105/53 (70) Capillary Refill : Less Than 3 SecondsLess Than 3 Seconds I&O Intake and Output 07/19/19 00:00 Intake Total 300 ml Output Total 3650 ml Balance -3350 ml Intake Oral 300 ml Output Urine Total 3650 ml General: Alert, No Acute Distress Lungs: Clear to Auscultation, Normal Air Movement Heart: Regular Rate, No Murmurs Psych/Mental Status: Mood NL Results/Procedures Lab Microbiology 07/14/19 Urine Culture - Final, Complete 3 or more isolates 07/14/19 Blood Culture - Preliminary, Resulted No growth Assessment/Plan Assessment/Plan (1) Metastatic lung cancer (metastasis from lung to other site) Assessment & Plan: On comfort measures. 07/18 discussed in more detail with son and patient today, she was just seen at [facility] in [place] for inital eval and had first treatment 2-3 days prior to admission. She had chemo and radiation before going to [facility]. Discussed that with metastatic disease, no treatment is likely to be curative and they stated they did not realize that and do note that with how much pain she is in, they agree it may not be best to try to continue palliative treatments. I did tell them I would contact Dr. Tello's office- they confirmed treatment is not intended to be curative and that she has had one dose of immunotherapy which may take some time to show any benefit and also suggested that at times an immune response can cause some reaction, so could try prednisone to see if it helps her symptoms. Family would like to have list of hospices to consider. 07/19- feeling slightly better, but still using SHIPYARD LABORER. Continue prednisone, she wants to talk more with family and make further decisions this afternoon, plan f or family meeting tomorrow morning. (2) Intractable abdominal pain Assessment & Plan: Managed on SHIPYARD LABORER currently 07/18 requiring equivalent of over 480 mg PO morphine in 24 hours, possible contribution of constipation, discussed enema since not tolerating oral well, will try Relistor Clinical Quality Measures DVT/VTE Risk/Contraindication: Risk Factor Score Per Nursin RFS Level Per Nursing on Admit: 4+=Very High LV LORA MD Jul 19, 2019 12:18
[2019-07-19] MEDS: NS IV 500 ML PCA CARRIER FLUID IV SCH (18:21)
[2019-07-19] MEDS: PROMETHAZINE INJ 25 MG/ML (PHENERGAN) AMP IV PRN (23:40)
[2019-07-20] MEDS: predniSONE 20 MG TAB PO SCH (06:07)
[2019-07-20] MEDS: POLYETHYLENE GLYCOL 17 GM (MIRALAX) PACK PO SCH ×3 (08:47→21:29)
[2019-07-20] MEDS: NICOTINE 7 MG (NICODERM) PATCH TD SCH (08:54)
[2019-07-20] MEDS: oxyCODONE/APAP 7.5-325 MG (PERCOCET 7.5) TABLET PO PRN (08:59)
--- NOTE | 2019-07-20 10:44 | Progress Note ---
Subjective Subjective/Events-last exam Afebrile, continues to require large doses of IV hydromorphone. Objective Exam Last Set of Vital Signs Vital Signs Date Time Temp Pulse Resp B/P (MAP) Pulse Ox O2 Delivery O2 Flow Rate FiO2 07/20/19 08:00 90 Nasal Cannula 4.00 07/20/19 07:00 20 07/18/19 13:15 36.5 07/15/19 03:49 91 105/53 (70) Capillary Refill : Less Than 3 SecondsLess Than 3 Seconds I&O Intake and Output 07/20/19 00:00 Intake Total 320 ml Output Total 1100 ml Balance -780 ml Intake Oral 320 ml Output Urine Total 1100 ml General: Alert, No Acute Distress Psych/Mental Status: Mood NL Results/Procedures Lab Microbiology 07/14/19 Urine Culture - Final, Complete 3 or more isolates 07/14/19 Blood Culture - Final, Complete No growth Assessment/Plan Assessment/Plan (1) Metastatic lung cancer (metastasis from lung to other site) Assessment & Plan: On comfort measures. 07/18 discussed in more detail with son and patient today, she was just seen at [facility] in [place] for inital eval and had first treatment 2-3 days prior to admission. She had chemo and radiation before going to [facility]. Discussed that with metastatic disease, no treatment is likely to be curative and they stated they did not realize that and do note that with how much pain she is in, they agree it may not be best to try to continue palliative treatments. I did tell them I would contact Dr. Tello's office- they confirmed treatment is not intended to be curative and that she has had one dose of immunotherapy which may take some time to show any benefit and also suggested that at times an immune response can cause some reaction, so could try predn isone to see if it helps her symptoms. Family would like to have list of hospices to consider. 07/19- feeling slightly better, but still using CUSTOMER BUSINESS MANAGER. Continue prednisone, she wants to talk more with family and make further decisions this afternoon, plan for family meeting tomorrow morning. 07/20- discussed options and patient and family are in agreement on hospice, but unsure if they will be able to manage at home or if she will need nursing facility placement, will choose hospices to talk to today and discuss whether home is an option. (2) Intractable abdominal pain Assessment & Plan: Managed on CUSTOMER BUSINESS MANAGER currently 07/18 requiring equivalent of over 480 mg PO morphine in 24 hours, possible contribution of constipation, discussed enema since not tolerating oral well, will try Relistor Clinical Quality Measures DVT/VTE Risk/Contraindication: Risk Factor Score Per Nursin RFS Level Per Nursing on Admit: 4+=Very High LV LORA MD Jul 20, 2019 10:44
[2019-07-20] MEDS: NS IV 500 ML PCA CARRIER FLUID IV SCH (11:03)
[2019-07-21] MEDS: NS IV 500 ML PCA CARRIER FLUID IV SCH ×2 (03:54→21:02)
[2019-07-21] MEDS: predniSONE 20 MG TAB PO SCH (06:01)
[2019-07-21] MEDS: POLYETHYLENE GLYCOL 17 GM (MIRALAX) PACK PO SCH ×3 (07:49→21:07)
[2019-07-21] MEDS: NICOTINE 7 MG (NICODERM) PATCH TD SCH (07:49)
[2019-07-21] MEDS: ONDANSETRON 4 MG/2 ML (SDV) Z0FRAN IV PRN (08:02)
[2019-07-21] MEDS ORDERED: [UNRECOGNIZED DRUG - OTHER] IV ×3 (11:30→14:42)
[2019-07-21] MEDS ORDERED: ATRO2DRO4 SL (12:00)
[2019-07-21] MEDS ORDERED: BISA10SU8 PR (12:00)
--- NOTE | 2019-07-21 12:00 | Discharge Instructions ---
Discharge [facility] Discharge Medications New Medications: [Hydromorphone Tunnel Mucker] () 1 EACH 500 MG IV UD for 30 Days CONCENTRATION: 5 MG/ML VOL: 100ML CASSETTE SHOT BLASTER DOSE: 0.4 MG LOCKOUT: 10 MIN MAX 4 HR: CONT. INFUSION:0.4 MG/hr Atropine Sulfate (Atropine Sulfate) 2 Ml Drops 0 ML SL Q6H PRN for TERMINAL CHOKING/ RATTLE, #1 EA 0 Refills Bisacodyl (Bisacodyl) 10 Mg Supp.rect 10 MG GA DAILY PRN for CONSTIPATION-4TH LINE, #30 SUPP.RECT 0 Refills Continued Medications: Albuterol Sulfate (Ventolin Hfa) 1 Puff Puff 1 PUFF INH Q4H for 30 Days, PUFF 1 PUFF = 90 MCG Promethazine HCl (Promethazine Tablet) 25 Mg Tablet 25 MG PO Q6H PRN for NAUSEA/VOMITING-2ND LINE, TAB Discontinued Medications: Ciprofloxacin HCl (Cipro) 500 Mg Tablet 500 MG PO BID, #20 TAB Cyanocobalamin (Vitamin B-12) (Vitamin B-12) 1,000 Mcg Capsule 1000 MCG PO DAILY, #30 CAP Fluconazole (Fluconazole) 150 Mg Tablet 150 MG PO DAILY PRN for THRUSH for 15 Days, TAB 15 DAY SUPPLY FILLED 01-17-19 Gabapentin (Gabapentin) 600 Mg Tablet 300 MG PO TID, TAB TAKES 1/2 (600MG) TABLET Metronidazole (Flagyl) 500 Mg Tablet 500 MG PO BID for 10 Days, #20 TAB Omeprazole (Omeprazole) 40 Mg Capsule.dr 40 MG PO DAILY, CAP Oxycodone HCl/Acetaminophen (Oxycodon-Acetaminophen 7.5-325) 1 Each Tablet 1 EACH PO Q8H PRN for PAIN-MODERATE MDD 4 for 7 Days, TAB Prednisone (Prednisone) 10 Mg Tab 5 MG PO DAILY for 15 Days, TAB Take one tablet by mouth once daily Patient Instructions Goal/Follow Up Appt: Discharged with hospice services, follow up will be in home. Activity & Diet Activity as Tolerated: Yes LV LORA MD Jul 21, 2019 11:57
[2019-07-21] MEDS: oxyCODONE/APAP 7.5-325 MG (PERCOCET 7.5) TABLET PO PRN (12:16)
[2019-07-21] MEDS: PROMETHAZINE INJ 25 MG/ML (PHENERGAN) AMP IV PRN ×2 (12:58→21:10)
[2019-07-21] MEDS: HYDROmorphone PF INJECTION 20 MG in NS (IVPB) 100 ML IV PRN (15:33)
--- NOTE | 2019-07-21 19:58 | Progress Note ---
Subjective Subjective/Events-last exam Pain is managed currently, plan is to go home with hospice compassus with ENTRY LEVEL MANUFACTURING ENGINEER. Objective Exam Last Set of Vital Signs Vital Signs Date Time Temp Pulse Resp B/P (MAP) Pulse Ox O2 Delivery O2 Flow Rate FiO2 07/21/19 08:00 Nasal Cannula 4.00 07/21/19 07:00 20 07/20/19 08:00 90 07/18/19 13:15 36.5 07/15/19 03:49 91 105/53 (70) Capillary Refill : Less Than 3 SecondsLess Than 3 Seconds I&O Intake and Output 07/21/19 00:00 Intake Total 580 ml Output Total 1875 ml Balance -1295 ml Intake Oral 580 ml Output Urine Total 1875 ml General: Other (sleepy) Neuro: Normal Speech Psych/Mental Status: Mood NL Results/Procedures Lab Microbiology 07/14/19 Urine Culture - Final, Complete 3 or more isolates 07/14/19 Blood Culture - Final, Complete No growth Assessment/Plan Assessment/Plan (1) Metastatic lung cancer (metastasis from lung to other site) Assessment & Plan: On comfort measures. 07/18 discussed in more detail with son and patient today, she was just seen at [facility] in [place] for inital eval and had first treatment 2-3 days prior to admission. She had chemo and radiation before going to [facility]. Discussed that with metastatic disease, no treatment is likely to be curative and they stated they did not realize that and do note that with how much pain she is in, they agree it may not be best to try to continue palliative treatments. I did tell them I would contact Dr. Tello's office- they confirmed treatment is not intended to be curative and that she has had one dose of immunotherapy which may take some time to show any benefit and also suggested th at at times an immune response can cause some reaction, so could try prednisone to see if it helps her symptoms. Family would like to have list of hospices to consider. 07/19- feeling slightly better, but still using ENTRY LEVEL MANUFACTURING ENGINEER. Continue prednisone, she wants to talk more with family and make further decisions this afternoon, plan for family meeting tomorrow morning. 07/20- discussed options and patient and family are in agreement on hospice, but unsure if they will be able to manage at home or if she will need nursing facility placement, will choose hospices to talk to today and discuss whether home is an option. 07/21- plan was for d/c home with ENTRY LEVEL MANUFACTURING ENGINEER pump today, however everything was not able to be set up in time, ENTRY LEVEL MANUFACTURING ENGINEER pump will be delivered tomorrow am at 9, plan for discharge then. (2) Intractable abdominal pain Assessment & Plan: Managed on ENTRY LEVEL MANUFACTURING ENGINEER currently 07/18 requiring equivalent of over 480 mg PO morphine in 24 hours, possible contribution of constipation, discussed enema since not tolerating oral well, will try Relistor Clinical Quality Measures DVT/VTE Risk/Contraindication: Risk Factor Score Per Nursin RFS Level Per Nursing on Admit: 4+=Very High LV LORA MD Jul 21, 2019 19:58
[2019-07-22] MEDS: predniSONE 20 MG TAB PO SCH (06:33)
[2019-07-22] MEDS: POLYETHYLENE GLYCOL 17 GM (MIRALAX) PACK PO SCH (08:35)
[2019-07-22] MEDS: NICOTINE 7 MG (NICODERM) PATCH TD SCH (08:35)
[2019-07-22] MEDS: PROMETHAZINE INJ 25 MG/ML (PHENERGAN) AMP IV PRN (10:52)
[2019-07-22] MEDS: oxyCODONE/APAP 7.5-325 MG (PERCOCET 7.5) TABLET PO PRN (10:52)
== END 2019-07-22 11:13 | disposition hospice, home (50) | DRG 951 ==
LOC: EDUNIT# 12:10 → ER 12:11 → 4TH 20:15 → UNDOADMOB 20:15 → OBSVTOIN 07-15 16:01 → 4TH 07-17 15:59
PROVIDERS: ADMIT Internal Medicine; ATTEND Family Medicine
DX: Z51.5 Encounter for palliative care (principal); C78.00 Secondary malignant neoplasm of unspecified lung; C79.89 Secondary malignant neoplasm of other specified sites; G89.3 Neoplasm related pain (acute) (chronic); J43.9 Emphysema, unspecified; G62.9 Polyneuropathy, unspecified; F17.210 Nicotine dependence, cigarettes, uncomplicated; Z66 Do not resuscitate; R10.9 Unspecified abdominal pain; Z90.710 Acquired absence of both cervix and uterus
CPT/HCPCS: 36415; 71045; 74177; 76705; 80048; 80053; 81000; 83605; 83690; 83735; 83970; 84100; 84443; 85025; 87040; 87088; 94760; 96361; 96365; 96367; 96375; 96376; G0378

== ENCOUNTER 2019-08-09 10:30 | Emergency (ER) | payer MEDICARE ==
[~2019-08-09] VITALS: Ht 170 cm; Wt 64.0 kg
[~2019-08-09 10:30] MED LIST changes: +ATRO2DRO4 SL; +BISA10SU8 PR; +CYAN-23 PO; +OMEP40CA27 PO; -OMEP40CA36 PO; +OXYC-464 PO; +RT-ALBUINH INH; +[UNRECOGNIZED DRUG - OTHER] IV
--- NOTE | 2019-08-09 10:40 | NUR ---
PT STATES NO CHANGE IN MEDS
[2019-08-09] MEDS ORDERED: NS IV 1000 ML 1,000 ML IV SCH ×3 (10:45→11:45)
[2019-08-09 10:55] LABS: BASOPHILS % (AUTO) 0 % (0-10); EOSINOPHILS # (AUTO) 0.1 10^3/uL (0.0-0.3); EOSINOPHILS % (AUTO) 1 % (0-10); HEMATOCRIT 34 % (35-52); HEMOGLOBIN 10.9 G/DL (11.5-16.0); LYMPHOCYTES # (AUTO) 1.7 X 10^3 (1.0-4.0); LYMPHOCYTES % (AUTO) 13 % (12-44); MEAN CORPUSCULAR HEMOGLOBIN 29 PG (25-34); MEAN CORPUSCULAR HGB CONC 32 G/DL (32-36); MEAN CORPUSCULAR VOLUME 90 FL (80-99); MEAN PLATELET VOLUME 8.2 FL (7.4-10.4); MONOCYTES % (AUTO) 8 % (0-12); NEUTROPHILS # (AUTO) 10.3 X 10^3 (1.8-7.8); NEUTROPHILS % (AUTO) 78 % (42-75); PLATELET COUNT 238 10^3/uL (130-400); WHITE BLOOD COUNT 13.2 10^3/uL (4.3-11.0)
--- NOTE | 2019-08-09 10:55 | ED General ---
General Stated Complaint: WEAKNESS Source of Information: Patient Exam Limitations: No Limitations History of Present Illness Date Seen by Provider: Aug 09, 2019 Time Seen by Provider: 10:50 Initial Comments To ER per EMS from home with reports of generalized weakness for 2 days and no appetite. She denies nausea or vomiting just states she is not hungry. She has known left lower lobe lung cancer with metastasis. She was on [facility] but has not been on treatment of any sort since her last visit here. She was formerly on hospice but on arrival today she states "I'm not on hospice, I'm not ready to ". She denies fevers or chills. SHe continues to smoke. Wears oxygen when necessary at home. Blood pressure on arrival 78/43. When asked about CODE STATUS if she would want CPR done if her heart stops she states "yes". I discussed with her that would not change the end result which would be , if her heart stopped suddenly and unexpectedly she would likely not come off of the ventilator nor would she ever leave the hospital. She and her significant other became tearful and stated they would reconsider once the daughter arrived. From what I gather her treatment at [facility] was palliative. I discussed with them the very basic ideology of palliative cancer treatment versus curative cancer treatment. Timing/Duration: 1-2 Days Severity: Moderate Associated Systoms: Weakness Allergies and Home Medications Allergies Coded Allergies: codeine (Unverified Adverse Reaction, Mild, n/v, 11/14/11) morphine (Unverified Adverse Reaction, Mild, n/v, 11/14/11) Home Medications Albuterol Sulfate 1 Puff Puff, 1 PUFF INH Q4H 1 PUFF = 90 MCG Prescribed by: CARLOS THOMAS on 07/15/19 0814 Atropine Sulfate 2 Ml Drops, 0 ML SL Q6H PRN for TERMINAL CHOKING/ RATTLE Prescribed by: LV LORA on 07/21/19 1200 Bisacodyl 10 Mg Supp.rect, 10 MG [place] DAILY PRN for CONSTIPATION-4TH LINE Prescribed by: LV LORA on 07/21/19 1200 Promethazine HCl 25 Mg Tablet, 25 MG PO Q6H PRN for NAUSEA/VOMITING-2ND LINE, (Reported) [Hydromorphone Manufacturing Engineer Supervisor] 1 EACH, 500 MG IV UD CONCENTRATION: 5 MG/ML VOL: 100ML CASSETTE ASH COLLECTOR DOSE: 0.4 MG LOCKOUT: 10 MIN MAX 4 HR: CONT. INFUSION:0.4 MG/hr Prescribed by: LV LORA on 07/21/19 1442 Patient Home Medication List Home Medication List Reviewed: Yes Review of Systems Review of Systems Constitutional: see HPI, weakness EENTM: see HPI Respiratory: no symptoms reported Cardiovascular: no symptoms reported Genitourinary: no symptoms reported Musculoskeletal: no symptoms reported Skin: no symptoms reported Psychiatric/Neurological: No Symptoms Reported Hematologic/Lymphatic: No Symptoms Reported Past Cbjzouw-Ddeijh-Prxuah Hx Patient Social History Type Used: Cigarettes 2nd Hand Smoke Exposure: Yes Recent Hopitalizations: No Immunizations Up To Date Tetanus Booster (TDap): Unknown Date of Influenza Vaccine: May 24, 2019 Seasonal Allergies Seasonal Allergies: No Past Medical History Surgeries: Yes (PORT RIGHT CHEST) Hysterectomy, Orthopedic Respiratory: Yes (LUNG CANCER) COPD, Emphysema Currently Using CPAP: No Currently Using BIPAP: No Cardiac: No Neurological: Yes (CANCER-RELATED NEUROPATHY) Neuropathy 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 8.0oz. 56.753605gv; 22.46 BMI Method:Stated General Appearance: No Apparent Distress, Chronically ill, Other (alert and oriented. Dry mucous membranes. Very strong odor of cigarette smoke.) Eyes: Bilateral Eye Normal Inspection, Bilateral Eye PERRL, Bilateral Eye EOMI Neck: Full Range of Motion, Normal Inspection Respiratory: No Accessory Muscle Use, No Respiratory Distress, Other (barrel chested) Cardiovascular: Regular Rate, Rhythm, Normal Peripheral Pulses Gastrointestinal: Non Tender, Soft Neurologic/Psychiatric: Alert, Oriented x3 Skin: Normal Color, Warm/Dry Focused Exam Lactate Level 08/09/19 10:40: Lactic Acid Level 0.71 Lactic Acid Level Laboratory Tests Test 08/09/19 10:40 Lactic Acid Level 0.71 MMOL/L (0.50-2.00) Progress/Results/Core Measures Suspected Sepsis SIRS Temperature: Pulse: Respiratory Rate: Laboratory Tests 08/09/19 10:40: White Blood Count 13.2H Blood Pressure / Mean: 08/09/19 10:40: Lactic Acid Level 0.71 Laboratory Tests 08/09/19 10:40: Creatinine 0.69, INR Comment 1.2, Platelet Count 238, Total Bilirubin 0.8 Results/Orders Lab Results Laboratory Tests Test 08/09/19 10:40 Range/Units White Blood Count 13.2 H 4.3-11.0 10^3/uL Red Blood Count 3.74 L 4.35-5.85 10^6/uL Hemoglobin 10.9 L 11.5-16.0 G/DL Hematocrit 34 L 35-52 % Mean Corpuscular Volume 90 80-99 FL Mean Corpuscular Hemoglobin 29 25-34 PG Mean Corpuscular Hemoglobin Concent 32 32-36 G/DL Red Cell Distribution Width 17.0 H 10.0-14.5 % Platelet Count 238 130-400 10^3/uL Mean Platelet Volume 8.2 7.4-10.4 FL Neutrophils (%) (Auto) 78 H 42-75 % Lymphocytes (%) (Auto) 13 12-44 % Monocytes (%) (Auto) 8 0-12 % Eosinophils (%) (Auto) 1 0-10 % Basophils (%) (Auto) 0 0-10 % Neutrophils # (Auto) 10.3 H 1.8-7.8 X 10^3 Lymphocytes # (Auto) 1.7 1.0-4.0 X 10^3 Monocytes # (Auto) 1.0 0.0-1.0 X 10^3 Eosinophils # (Auto) 0.1 0.0-0.3 10^3/uL Basophils # (Auto) 0.0 0.0-0.1 10^3/uL Prothrombin Time 15.2 H 12.2-14.7 SEC INR Comment 1.2 0.8-1.4 Sodium Level 133 L 135-145 MMOL/L Potassium Level 3.3 L 3.6-5.0 MMOL/L Chloride Level 101 98-107 MMOL/L Carbon Dioxide Level 23 21-32 MMOL/L Anion Gap 9 5-14 MMOL/L Blood Urea Nitrogen 11 7-18 MG/DL Creatinine 0.69 0.60-1.30 MG/DL Estimat Glomerular Filtration Rate > 60 BUN/Creatinine Ratio 16 Glucose Level 82 70-105 MG/DL Lactic Acid Level 0.71 0.50-2.00 MMOL/L Calcium Level 7.8 L 8.5-10.1 MG/DL Corrected Calcium 8.7 8.5-10.1 MG/DL Total Bilirubin 0.8 0.1-1.0 MG/DL Aspartate Amino Transf (AST/SGOT) 16 5-34 U/L Alanine Aminotransferase (ALT/SGPT) 6 0-55 U/L Alkaline Phosphatase 167 H 40-136 U/L Total Protein 5.7 L 6.4-8.2 GM/DL Albumin 2.9 L 3.2-4.5 GM/DL My Orders Orders - ELMIRA WORKMAN MOGUL OPERATOR Cbc With Automated Diff (08/09/19 10:40) Comprehensive Metabolic Panel (08/09/19 10:40) Ua Culture If Indicated (08/09/19 10:40) Chest 1 View, Ap/Pa Only (08/09/19 10:40) Protime With Inr (08/09/19 10:40) Ns Iv 1000 Ml (Sodium Chloride 0.9%) (08/09/19 10:45) Blood Culture (08/09/19 10:46) Lactic Acid Analyzer (08/09/19 10:46) Palliative Care Consult (08/09/19 10:58) Ondansetron Injection (Zofran Injectio (08/09/19 11:30) Normal Saline Bolus 1,000ml (08/09/19 11:45) Zosyn 4.5 Gm (X1)Ed Only (08/09/19 11:45) Levofloxacin Tablet (Levaquin Tablet) (08/09/19 11:45) Normal Saline Bolus 1,000ml (08/09/19 11:45) Meclizine Tablet (Antivert Tablet) (08/09/19 11:45) Medications Given in ED Current Medications Medications Dose Ordered Sig/Omari Route Start Time Stop Time Status Last Admin Dose Admin Ondansetron HCl 8 mg ONCE ONCE IVP 08/09/19 11:30 08/09/19 11:31 DC 08/09/19 11:27 8 MG Vital Signs/I&O 08/09/19 10:30 Temp 37.2 Pulse 93 Resp 18 B/P (MAP) 87/57 (67) O2 Delivery Nasal Cannula O2 Flow Rate 2.00 Capillary Refill : Departure Communication (Admissions) 1117-daughter has arrived, states the patient was on hospice until this morning when they had to relocate to come to the emergency room and the plan to reinstate it upon discharge home. Daughter seems to have Better understanding of the poor prognosis. Spoke with Dr. Gonzáles and we together visited with the patient, she would like to go home, blood pressure has come up to 121/61 after 1 L of fluids she feels better. I'll discharge home on Levaquin. She'll restart hospice as soon as leaving here. Impression Primary Impression: Metastatic lung cancer (metastasis from lung to other site) Qualified Codes: C34.92 - Malignant neoplasm of unspecified part of left bronchus or lung Additional Impression: Bronchitis Disposition: ADMITTED INPATIENT Condition: Critical Departure-Patient Inst. Decision time for Depature: 11:47 Referrals: [facility] (PCP) Primary Care Physician ESPINOZA CERVANTES APRN (Family) Primary Care Physician Patient Instructions: Lung Cancer (DC) Scripts Levofloxacin (Levaquin) 500 Mg Tablet 500 MG PO DAILY, #5 TAB Prov: ELMIRA WORKMAN APRN 08/09/19 ELMIRA WORKMAN APRN Aug 09, 2019 10:55
[2019-08-09 11:14] LABS: INR 1.2 (0.8-1.4); PROTHROMBIN TIME PATIENT 15.2 SEC (12.2-14.7)
[2019-08-09 11:16] LABS: ALANINE AMINOTRANSFERASE 6 U/L (0-55); ALBUMIN 2.9 GM/DL (3.2-4.5); ALKALINE PHOSPHATASE 167 U/L (40-136); BILIRUBIN,TOTAL 0.8 MG/DL (0.1-1.0); BUN/CREATININE RATIO 16; CALCIUM 7.8 MG/DL (8.5-10.1); CARBON DIOXIDE 23 MMOL/L (21-32); CHLORIDE 101 MMOL/L (98-107); CREATININE SERUM 0.69 MG/DL (0.60-1.30); GFR ESTIMATED > 60; GLUCOSE 82 MG/DL (70-105); POTASSIUM 3.3 MMOL/L (3.6-5.0); SODIUM 133 MMOL/L (135-145); TOTAL PROTEIN 5.7 GM/DL (6.4-8.2)
--- NOTE | 2019-08-09 11:20 | Diagnostic Imaging Report ---
INDICATION: Weakness. TIME OF EXAMINATION: 11:07 AM. COMPARISON: 07/14/2019. FINDINGS: The heart size is stable. The known mass in the left lung base persists. There are some linear opacities in the lung bases, consistent with some scarring or atelectasis. There is some minimal density in the periphery of the right mid lung. The right chest wall port has its tip overlying the SVC. The upper lung win are clear. There is no pneumothorax. Postop changes of the left shoulder are noted. IMPRESSION: The left lung mass is similar to the prior exam. There are some bibasilar areas of atelectasis or scarring. Dictated by: Dictated on workstation # [id number]
[2019-08-09] MEDS ORDERED: ONDANSETRON 4 MG/2 ML (SDV) Z0FRAN IVP ONE (11:30)
[2019-08-09] MEDS ORDERED: PIPERACILLIN SODIUM/TAZOBACTAM 4.5 GM in NS (IVPB) 100 ML IV ONE (11:45)
[2019-08-09] MEDS ORDERED: MECLIZINE 25 MG (ANTIVERT) TAB PO ONE (11:45)
[2019-08-09] MEDS ORDERED: LEVOFLOXACIN 500 MG TAB (LEVAQUIN) PO ONE (11:45)
[2019-08-09] MEDS ORDERED: LEVO500T2 PO (11:51)
[2019-08-09 12:58] VITALS: BP 112/64
== END 2019-08-09 12:58 | disposition other institution (70) ==
LOC: EDUNIT# 10:30 → ER 10:31
DX: C34.92 Malignant neoplasm of unspecified part of left bronchus or lung (principal); C79.9 Secondary malignant neoplasm of unspecified site; J40 Bronchitis, not specified as acute or chronic; J43.9 Emphysema, unspecified; G62.9 Polyneuropathy, unspecified; Z88.5 Allergy status to narcotic agent; Z77.22 Contact with and (suspected) exposure to environmental tobacco smoke (acute) (chronic); Z90.710 Acquired absence of both cervix and uterus; Z82.49 Family history of ischemic heart disease and other diseases of the circulatory system
CPT/HCPCS: 36415; 71045; 80053; 83605; 85025; 85610; 87040; 96361; 96374

== ENCOUNTER 2019-08-16 13:02 | Emergency (ER) | payer MEDICARE ==
[~2019-08-16] VITALS: Ht 170 cm; Wt 58.9 kg
[~2019-08-16 13:02] MED LIST changes: +LEVO500T2 PO
--- NOTE | 2019-08-16 13:28 | ED GI ---
General Chief Complaint: Abdominal/GI Problems Stated Complaint: CONSTIPATION Source of Information: Patient Exam Limitations: No Limitations History of Present Illness Date Seen by Provider: Aug 16, 2019 Time Seen by Provider: 13:10 Initial Comments To ER per EMS from home with reports of constipation and nausea. She is on hospice for metastatic lung cancer. She is on a fentanyl patch and Percocet as well as occasional liquid morphine. She's tried laxatives and enemas at home without relief. Timing/Duration: 2-3 Days Severity/Quality: Moderate Location: Generalized Abdomen Radiation: No Radiation Activities at Onset: None Associated Symptoms: Nausea/Vomiting Allergies and Home Medications Allergies Coded Allergies: codeine (Unverified Adverse Reaction, Mild, n/v, 11/14/11) morphine (Unverified Adverse Reaction, Mild, n/v, 11/14/11) Home Medications Albuterol Sulfate 1 Puff Puff, 1 PUFF INH Q4H 1 PUFF = 90 MCG Prescribed by: CARLOS THOMAS on 07/15/19 0814 Atropine Sulfate 2 Ml Drops, 0 ML SL Q6H PRN for TERMINAL CHOKING/ RATTLE Prescribed by: LV LORA on 07/21/19 1200 Bisacodyl 10 Mg Supp.rect, 10 MG [place] DAILY PRN for CONSTIPATION-4TH LINE Prescribed by: LV LORA on 07/21/19 1200 Levofloxacin 500 Mg Tablet, 500 MG PO DAILY Prescribed by: ELMIRA WORKMAN on 08/09/19 1151 Promethazine HCl 25 Mg Tablet, 25 MG PO Q6H PRN for NAUSEA/VOMITING-2ND LINE, (Reported) [Hydromorphone Military Source Operations Officer] 1 EACH, 500 MG IV UD CONCENTRATION: 5 MG/ML VOL: 100ML CASSETTE PETROLEUM LABORATORY TECHNICIAN DOSE: 0.4 MG LOCKOUT: 10 MIN MAX 4 HR: CONT. INFUSION:0.4 MG/hr Prescribed by: LV LORA on 07/21/19 1442 Patient Home Medication List Home Medication List Reviewed: Yes Review of Systems Review of Systems Constitutional: see HPI EENTM: No Symptoms Reported Respiratory: No Symptoms Reported Cardiovascular: No Symptoms Reported Gastrointestinal: See HPI, Abdominal Pain, Constipated, Nausea, Vomiting Genitourinary: No Symptoms Reported Musculoskeletal: no symptoms reported Skin: no symptoms reported Psychiatric/Neurological: No Symptoms Reported Past Grbkqbg-Izfybf-Euyvff Hx Patient Social History Type Used: Cigars 2nd Hand Smoke Exposure: Yes Recent Hopitalizations: No Immunizations Up To Date Tetanus Booster (TDap): Unknown Date of Influenza Vaccine: May 24, 2019 Seasonal Allergies Seasonal Allergies: No Past Medical History Surgeries: Yes (PORT RIGHT CHEST) Hysterectomy, Orthopedic Respiratory: Yes (LUNG CANCER) COPD, Emphysema Currently Using CPAP: No Currently Using BIPAP: No Cardiac: No Neurological: Yes (CANCER-RELATED NEUROPATHY) Neuropathy 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 8.0oz. 56.679261ru; 22.00 BMI Method:Stated General Appearance: WD/WN, no apparent distress HEENT: PERRL/EOMI, normal ENT inspection Respiratory: normal breath sounds, no respiratory distress, no accessory muscle use Gastrointestinal: non tender, soft, abnormal bowel sounds (hypoactive); No distended, No guarding, No rebound Extremities: normal range of motion, non-tender Neurologic/Psychiatric: alert, normal mood/affect, oriented x 3 Skin: normal color, warm/dry Progress/Results/Core Measures Results/Orders Lab Results Laboratory Tests Test 08/16/19 13:44 Range/Units White Blood Count 7.9 4.3-11.0 10^3/uL Red Blood Count 3.85 L 4.35-5.85 10^6/uL Hemoglobin 11.0 L 11.5-16.0 G/DL Hematocrit 35 35-52 % Mean Corpuscular Volume 90 80-99 FL Mean Corpuscular Hemoglobin 29 25-34 PG Mean Corpuscular Hemoglobin Concent 32 32-36 G/DL Red Cell Distribution Width 17.1 H 10.0-14.5 % Platelet Count 302 130-400 10^3/uL Mean Platelet Volume 8.0 7.4-10.4 FL Neutrophils (%) (Auto) 79 H 42-75 % Lymphocytes (%) (Auto) 11 L 12-44 % Monocytes (%) (Auto) 9 0-12 % Eosinophils (%) (Auto) 1 0-10 % Basophils (%) (Auto) 0 0-10 % Neutrophils # (Auto) 6.2 1.8-7.8 X 10^3 Lymphocytes # (Auto) 0.9 L 1.0-4.0 X 10^3 Monocytes # (Auto) 0.7 0.0-1.0 X 10^3 Eosinophils # (Auto) 0.1 0.0-0.3 10^3/uL Basophils # (Auto) 0.0 0.0-0.1 10^3/uL Sodium Level 137 135-145 MMOL/L Potassium Level 3.5 L 3.6-5.0 MMOL/L Chloride Level 103 98-107 MMOL/L Carbon Dioxide Level 22 21-32 MMOL/L Anion Gap 12 5-14 MMOL/L Blood Urea Nitrogen 10 7-18 MG/DL Creatinine 0.69 0.60-1.30 MG/DL Estimat Glomerular Filtration Rate > 60 BUN/Creatinine Ratio 14 Glucose Level 98 70-105 MG/DL Calcium Level 8.4 L 8.5-10.1 MG/DL Corrected Calcium 9.2 8.5-10.1 MG/DL Total Bilirubin 0.3 0.1-1.0 MG/DL Aspartate Amino Transf (AST/SGOT) 14 5-34 U/L Alanine Aminotransferase (ALT/SGPT) 6 0-55 U/L Alkaline Phosphatase 173 H 40-136 U/L Total Protein 5.9 L 6.4-8.2 GM/DL Albumin 3.0 L 3.2-4.5 GM/DL My Orders Orders - ELMIRA WORKMAN APRN Cbc With Automated Diff (08/16/19 13:22) Comprehensive Metabolic Panel (08/16/19 13:22) Ed Iv/Invasive Line Start (08/16/19 13:22) Methylnaltrexone Injection (Relistor Inj (08/16/19 13:30) Ns Iv 1000 Ml (Sodium Chloride 0.9%) (08/16/19 13:30) Ondansetron Injection (Zofran Injectio (08/16/19 13:30) Acute Abd Series (08/16/19 13:33) Medications Given in ED Current Medications Medications Dose Ordered Sig/Omari Route Start Time Stop Time Status Last Admin Dose Admin Methylnaltrexone [place] 12 mg ONCE ONCE SQ 08/16/19 13:30 08/16/19 13:31 DC 08/16/19 14:14 12 MG Ondansetron HCl 8 mg ONCE ONCE IVP 08/16/19 13:30 08/16/19 13:31 DC 08/16/19 13:48 8 MG Vital Signs/I&O 08/16/19 13:04 Temp 36.6 Pulse 86 Resp 14 B/P (MAP) 105/59 (74) Pulse Ox 95 O2 Delivery Room Air Departure Impression Primary Impression: Metastatic lung cancer (metastasis from lung to other site) Qualified Codes: C34.90 - Malignant neoplasm of unspecified part of unspecified bronchus or lung Additional Impression: Constipation Qualified Codes: K59.03 - Drug induced constipation Disposition: 01 HOME, SELF-CARE Condition: Stable Departure-Patient Inst. Decision time for Depature: 14:36 Referrals: [facility]/ (PCP) Primary Care Physician ESPINOZA CERVANTES APRN (Family) Primary Care Physician Patient Instructions: Constipation in Adults Add. Discharge Instructions: 1. Medication as directed 2. Return to ER for any concerns 3. Follow-up with your doctor next week All discharge instructions reviewed with patient and/or family. Voiced understanding. Scripts Naloxegol Oxalate (Movantik) 25 Mg Tablet 25 MG PO DAILY, #10 TAB Prov: ELMIRA WORKMAN APRN 08/16/19 ELMIRA WORKMAN APRN Aug 16, 2019 13:28
[2019-08-16] MEDS ORDERED: METHYLNALTREXONE 12 MG/0.6 ML (RELISTOR) VIAL SQ ONE (13:30)
[2019-08-16] MEDS ORDERED: NS IV 1000 ML 1,000 ML IV SCH (13:30)
[2019-08-16] MEDS ORDERED: ONDANSETRON 4 MG/2 ML (SDV) Z0FRAN IVP ONE (13:30)
--- NOTE | 2019-08-16 13:40 | NUR ---
Patient refuses Relistor SQ until she has an abdominal x-ray. El Wade SEED PACKER notified.
[2019-08-16 13:53] LABS: BASOPHILS % (AUTO) 0 % (0-10); EOSINOPHILS # (AUTO) 0.1 10^3/uL (0.0-0.3); EOSINOPHILS % (AUTO) 1 % (0-10); HEMATOCRIT 35 % (35-52); LYMPHOCYTES # (AUTO) 0.9 X 10^3 (1.0-4.0); LYMPHOCYTES % (AUTO) 11 % (12-44); MEAN CORPUSCULAR HEMOGLOBIN 29 PG (25-34); MEAN CORPUSCULAR HGB CONC 32 G/DL (32-36); MEAN CORPUSCULAR VOLUME 90 FL (80-99); MONOCYTES # (AUTO) 0.7 X 10^3 (0.0-1.0); MONOCYTES % (AUTO) 9 % (0-12); NEUTROPHILS # (AUTO) 6.2 X 10^3 (1.8-7.8); NEUTROPHILS % (AUTO) 79 % (42-75); PLATELET COUNT 302 10^3/uL (130-400); RED CELL DISTRIBUTION WIDTH 17.1 % (10.0-14.5); WHITE BLOOD COUNT 7.9 10^3/uL (4.3-11.0)
--- NOTE | 2019-08-16 14:12 | Diagnostic Imaging Report ---
INDICATION: Abdominal pain PA chest, supine and upright abdominal images are obtained. There is a 4 cm area of consolidation in the left posterior lung base. There is a moderate amount of stool present throughout the colon. Bowel gas pattern is normal. There is no intraperitoneal free air. There are no pathologic masses or calcifications. IMPRESSION: Left basilar consolidation could be pneumonia. Moderate amount of stool present throughout the colon. Dictated by: Dictated on workstation # [id number]
[2019-08-16 14:18] LABS: ALANINE AMINOTRANSFERASE 6 U/L (0-55); ALKALINE PHOSPHATASE 173 U/L (40-136); BILIRUBIN,TOTAL 0.3 MG/DL (0.1-1.0); BUN/CREATININE RATIO 14; CALCIUM 8.4 MG/DL (8.5-10.1); CARBON DIOXIDE 22 MMOL/L (21-32); CHLORIDE 103 MMOL/L (98-107); CREATININE SERUM 0.69 MG/DL (0.60-1.30); GFR ESTIMATED > 60; GLUCOSE 98 MG/DL (70-105); POTASSIUM 3.5 MMOL/L (3.6-5.0); SODIUM 137 MMOL/L (135-145); TOTAL PROTEIN 5.9 GM/DL (6.4-8.2)
[2019-08-16] MEDS ORDERED: NALO25TA PO (14:37)
--- NOTE | 2019-08-16 15:05 | NUR ---
Port flushed with Heparin flush prior to DC.
[2019-08-16 15:10] VITALS: BP 126/66
[2019-08-16] MEDS ORDERED: HEParin (CENTRAL IV FLUSH) 500 UNIT/5 ML SYR IV ONE (15:15)
== END 2019-08-16 15:10 | disposition home or self-care (01) ==
LOC: EDUNIT# 13:02 → ER 13:03
DX: C34.90 Malignant neoplasm of unspecified part of unspecified bronchus or lung (principal); C79.9 Secondary malignant neoplasm of unspecified site; K59.00 Constipation, unspecified; J43.9 Emphysema, unspecified; G62.9 Polyneuropathy, unspecified; Z88.5 Allergy status to narcotic agent; Z90.710 Acquired absence of both cervix and uterus; Z82.49 Family history of ischemic heart disease and other diseases of the circulatory system
CPT/HCPCS: 36415; 74022; 80053; 85025

== ENCOUNTER 2019-08-17 06:48 | Emergency (ER) | payer MEDICARE ==
[~2019-08-17] VITALS: Ht 170 cm; Wt 60.2 kg
[~2019-08-17 06:48] MED LIST changes: +NALO25TA PO
[2019-08-17] MEDS ORDERED: LACTATED RINGERS 1,000 ML IV ONE (07:32)
[2019-08-17] MEDS ORDERED: ONDANSETRON 4 MG/2 ML (SDV) Z0FRAN IVP ONE ×2 (08:00→10:30)
[2019-08-17] MEDS ORDERED: fentaNYL INJECTION 100 MCG/2 ML AMP IVP STA ×2 (08:00→08:44)
--- NOTE | 2019-08-17 08:27 | ED Abdominal Pain ---
General Chief Complaint: Abdominal/GI Problems Stated Complaint: CONSTIPATIONS,PAIN Nursing Triage Note: PT PRESENTS TO ED WITH COMPLAINTS OF ABD PAIN AND CONSTIPATION X 5 DAYS. PT WAS SEEN IN ED YESTERDAY and given relistor but reports no results at home. Sepsis Screen: No Definite Risk Source of Information: Patient Exam Limitations: No Limitations History of Present Illness Date Seen by Provider: Aug 17, 2019 Time Seen by Provider: 07:18 Initial Comments Here with report of generalized abdominal pain and concerns related to constipation. 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 She was seen yesterday for constipation concerns and given Relistor for the constipation. She states that has not worked. She has tried prune juice and zaph-ovv-xukjegj medicines and those are not working. She has not had a bowel movement for 7 days and she is quite uncomfortable. Able to eat or drink well due to the pain. She is having nausea. No fever or chills. She has been on and off hospice over the last few weeks but now she is apparently not on it. Denies blood in her stool or foul-smelling vomiting. Timing/Duration: 1 Week, Getting Worse Severity/Quality: Moderate, Aching, Cramping Location: Generalized Abdomen Radiation: No Radiation Activities at Onset: None Modifying Factors: Worsens With Eating Associated Symptoms: Back Pain; No Chest Pain, No Fever/Chills; Nausea/Vomiting; No Shortness of Air; Weakness Allergies and Home Medications Allergies Coded Allergies: codeine (Unverified Adverse Reaction, Mild, n/v, 11/14/11) morphine (Unverified Adverse Reaction, Mild, n/v, 11/14/11) Home Medications Albuterol Sulfate 1 Puff Puff, 1 PUFF INH Q4H 1 PUFF = 90 MCG Prescribed by: CARLOS THOMAS on 07/15/19 0814 Atropine Sulfate 2 Ml Drops, 0 ML SL Q6H PRN for TERMINAL CHOKING/ RATTLE Prescribed by: LV LORA on 07/21/19 1200 Bisacodyl 10 Mg Supp.rect, 10 MG MN DAILY PRN for CONSTIPATION-4TH LINE Prescribed by: LV LORA on 07/21/19 1200 Levofloxacin 500 Mg Tablet, 500 MG PO DAILY Prescribed by: ELMIRA WORKMAN on 08/09/19 1151 Naloxegol Oxalate 25 Mg Tablet, 25 MG PO DAILY Prescribed by: ELMIRA WORKMAN on 08/16/19 1437 Promethazine HCl 25 Mg Tablet, 25 MG PO Q6H PRN for NAUSEA/VOMITING-2ND LINE, (Reported) [Hydromorphone Medical Reception Specialist] 1 EACH, 500 MG IV UD CONCENTRATION: 5 MG/ML VOL: 100ML 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 INFUSION:0.4 MG/hr Prescribed by: LV LORA on 07/21/19 1442 Patient Home Medication List Home Medication List Reviewed: Yes Review of Systems Review of Systems Constitutional: see HPI; No chills, No fever EENTM: No Symptoms Reported Respiratory: No Symptoms Reported Cardiovascular: No Symptoms Reported Gastrointestinal: See HPI, Abdominal Pain, Constipated, Nausea, Vomiting Genitourinary: No Symptoms Reported Musculoskeletal: back pain; No muscle weakness Skin: no symptoms reported Psychiatric/Neurological: Anxiety, Weakness All Other Systems Reviewed Negative Unless Noted: Yes Past Cuxusio-Ujnvis-Xehzcz Hx Past Med/Social Hx: Reviewed Nursing Past Med/Soc Hx Patient Social History Alcohol Use: Denies Use Recreational Drug Use: No Type Used: Cigars, Cigarettes 2nd Hand Smoke Exposure: Yes Recent Foreign Travel: No Contact w/Someone Who Travel: No Recent Infectious Disease Expo: No Recent Hopitalizations: No Physical Abuse: No Sexual Abuse: No Mistreated: No Fear: No Immunizations Up To Date Tetanus Booster (TDap): Unknown Date of Influenza Vaccine: May 24, 2019 Seasonal Allergies Seasonal Allergies: No Past Medical History Surgeries: Yes (PORT RIGHT CHEST) Hysterectomy, Orthopedic Respiratory: Yes (LUNG CANCER) COPD, Emphysema Currently Using CPAP: No Currently Using BIPAP: No Cardiac: No Neurological: Yes (CANCER-RELATED NEUROPATHY) Neuropathy 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, 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 8.0oz. 56.840999mm; 20.00 BMI Method:Stated General Appearance: WD/WN, mild distress HEENT: PERRL/EOMI, pharynx normal Neck: full range of motion, supple Respiratory: lungs clear, normal breath sounds Cardiovascular: no murmur, tachycardia Peripheral Pulses: 2+ Dorsalis Pedis (R), 2+ Left Dors-Pedis (L), 2+ Radial Pulses (R), 2+ Radial Pulses (L) Gastrointestinal: soft, abnormal bowel sounds (very quiet), tenderness (generalized) Extremities: non-tender, normal inspection Back: normal inspection, no CVA tenderness Neurologic/Psychiatric: alert, oriented x 3 Skin: normal color, warm/dry Progress/Results/Core Measures Results/Orders Lab Results Laboratory Tests Test 08/17/19 08:21 Range/Units White Blood Count 7.8 4.3-11.0 10^3/uL Red Blood Count 3.86 L 4.35-5.85 10^6/uL Hemoglobin 11.1 L 11.5-16.0 G/DL Hematocrit 35 35-52 % Mean Corpuscular Volume 90 80-99 FL Mean Corpuscular Hemoglobin 29 25-34 PG Mean Corpuscular Hemoglobin Concent 32 32-36 G/DL Red Cell Distribution Width 17.4 H 10.0-14.5 % Platelet Count 321 130-400 10^3/uL Mean Platelet Volume 7.9 7.4-10.4 FL Neutrophils (%) (Auto) 69 42-75 % Lymphocytes (%) (Auto) 21 12-44 % Monocytes (%) (Auto) 8 0-12 % Eosinophils (%) (Auto) 2 0-10 % Basophils (%) (Auto) 0 0-10 % Neutrophils # (Auto) 5.4 1.8-7.8 X 10^3 Lymphocytes # (Auto) 1.6 1.0-4.0 X 10^3 Monocytes # (Auto) 0.7 0.0-1.0 X 10^3 Eosinophils # (Auto) 0.1 0.0-0.3 10^3/uL Basophils # (Auto) 0.0 0.0-0.1 10^3/uL Sodium Level 140 135-145 MMOL/L Potassium Level 3.8 3.6-5.0 MMOL/L Chloride Level 107 98-107 MMOL/L Carbon Dioxide Level 22 21-32 MMOL/L Anion Gap 11 5-14 MMOL/L Blood Urea Nitrogen 8 7-18 MG/DL Creatinine 0.65 0.60-1.30 MG/DL Estimat Glomerular Filtration Rate > 60 BUN/Creatinine Ratio 12 Glucose Level 88 70-105 MG/DL Calcium Level 8.5 8.5-10.1 MG/DL Corrected Calcium 9.2 8.5-10.1 MG/DL Total Bilirubin 0.3 0.1-1.0 MG/DL Aspartate Amino Transf (AST/SGOT) 12 5-34 U/L Alanine Aminotransferase (ALT/SGPT) < 6 0-55 U/L Alkaline Phosphatase 165 H 40-136 U/L C-Reactive Protein High Sensitivity 6.26 H 0.00-0.50 MG/DL Total Protein 6.0 L 6.4-8.2 GM/DL Albumin 3.1 L 3.2-4.5 GM/DL My Orders Orders - CLEOPATRA LAW MD Cbc With Automated Diff (08/17/19 07:32) Comprehensive Metabolic Panel (08/17/19 07:32) Hs C Reactive Protein (08/17/19 07:32) Acute Abd Series (08/17/19 07:32) Ed Iv/Invasive Line Start (08/17/19 07:32) Lactated Ringers (Lr 1000 Ml Iv Solution (08/17/19 07:32) Fentanyl Injection (Sublimaze Injection (08/17/19 08:00) Ondansetron Injection (Zofran Injectio (08/17/19 08:00) Fentanyl Injection (Sublimaze Injection (08/17/19 08:44) Bisacodyl Suppository (Dulcolax Supposit (08/17/19 09:30) Ct Abdomen/Pelvis Wo (08/17/19 10:19) Hydromorphone Injection (Dilaudid Inject (08/17/19 10:30) Ondansetron Injection (Zofran Injectio (08/17/19 10:30) Methylnaltrexone Injection (Relistor Inj (08/17/19 11:30) Medications Given in ED Current Medications Medications Dose Ordered Sig/Omari Route Start Time Stop Time Status Last Admin Dose Admin Bisacodyl 20 mg ONCE ONCE MN 08/17/19 09:30 08/17/19 09:31 DC 08/17/19 09:52 20 MG Hydromorphone HCl 1 mg ONCE ONCE IV 08/17/19 10:30 08/17/19 10:31 DC 08/17/19 10:31 1 MG Lactated Ringer's 1,000 ml @ 0 mls/hr Q0M ONCE IV 08/17/19 07:32 08/17/19 07:33 DC 08/17/19 08:15 0 MLS/HR Ondansetron HCl 4 mg ONCE ONCE IVP 08/17/19 08:00 08/17/19 08:01 DC 08/17/19 08:15 4 MG Ondansetron HCl 4 mg ONCE ONCE IVP 08/17/19 10:30 08/17/19 10:31 DC 08/17/19 10:31 4 MG Vital Signs/I&O 08/17/19 07:28 Temp 36.7 Pulse 93 Resp 18 B/P (MAP) 143/90 (107) Pulse Ox 93 Blood Pressure Mean: 107 Progress Progress Note : Progress Note Seen and evaluated. IV via port access. Labs ordered. Acute abdominal series ordered. LR 1 L bolus, Zofran 4 mg IV and anginal 75 g IV ordered. Monitor patient. 1137: Patient did get repeat fentanyl 75 g IV and I did order 1 mg of Dilaudid that she had actually taken her on Percocet. She did get acute abdominal series followed by CT abdomen and pelvis to rule out obstruction. Ultimately those are clear and labs look okay. She did not have bowel movement results after 2 Dulcolax suppositories but the rectal vault was empty. There is no signs of obstruction. We will give Relistor 12 mg subcutaneous again today and she would like to just go home. She will continue the prune juice and fluids and will reevaluate hospice. Discharged home with return precautions. Patient and family verbalize understanding of instructions and agreement with plan. Diagnostic Imaging Diagonstic Imaging: Xray Plain Films/CT/US/NM/MRI: chest, abdomen Comments [facility] [place], [place] NAME: CHRISTIE CARR [facility] REC#: [id number] PT STATUS: REG ER : 1955 PHYSICIAN: CLEOPATRA LAW MD ADMIT DATE: 08/17/19/ER Draft Date of Exam:08/17/19 ACUTE ABD SERIES INDICATION: Abdominal pain The accompanying erect PA chest again shows a poorly defined area of increased density involving the left hilum that was noted on the prior exam of 08/16/2019. The overall appearance of the chest is otherwise stable. Supine and erect views of the abdomen again show that there is a fair amount of fecal material throughout the colon. The bowel gas pattern remains nonspecific. There is still no sign of a bowel obstruction. There is now prominent air-fluid level within the stomach. There is no mass or organomegaly identified. The osseous structures are intact. IMPRESSION: 1. When compared to the previous day there does not appear to have been any significant change. The bowel gas pattern remains nonspecific and there is still a considerable amount of fecal material throughout the colon. 2. There is now a prominent air-fluid level within the stomach. Dictated on workstation # [id number] Dict: 08/17/19 0847 Trans: 08/17/19 0920 [id number] Interpreted by: YAHAIRA MURILLO MD Electronically signed by: Alexusgonsjerome Imaging: CT Plain Films/CT/US/NM/MRI: abdomen, pelvis Comments [facility], [place] NAME: CHRISTIE CARR [facility] REC#: [id number] PT STATUS: REG ER : 1955 PHYSICIAN: CLEOPATRA LAW MD ADMIT DATE: 08/17/19/ER Draft Date of Exam:08/17/19 CT ABDOMEN/PELVIS WO EXAMINATION: CT Abdomen Pelvis without contrast. TECHNIQUE: Multiple contiguous axial images were obtained through the abdomen and pelvis without the use of intravenous contrast. All CT scans use one or more of the following dose optimizing techniques: automated exposure control, MA and/or KvP adjustment based on a patient size and exam type, or iterative reconstruction. HISTORY: Back pain. COMPARISON: 07/14/2019 FINDINGS: Left lung base mass is again seen with a moderate left pleural effusion. Cyst is present in segment VII of the liver. There is no biliary ductal dilation. Gallbladder is distended. Pancreas is normal. Spleen is normal. Adrenal glands are normal. The kidneys are normal. There is no hydronephrosis. Urinary bladder is normal. There are no dilated loops of large or small bowel. No obstruction or inflammation. No free fluid or air. No abdominal or pelvic lymphadenopathy. Aorta is normal in caliber without aneurysm. Widespread osseous metastases are unchanged. There is some mild compression fracture of L4. IMPRESSION: 1. Widespread osseous metastatic disease and left lung base mass are unchanged with a moderate left pleural effusion. 2. Unchanged mild compression fracture of L4. Dictated on workstation # [id number] Dict: 08/17/19 1101 Trans: 08/17/19 1109 [facility] [id number] Interpreted by: YANIQUE ACOSTA MD Electronically signed by: Departure Impression Primary Impression: Constipation Qualified Codes: K59.03 - Drug induced constipation Disposition: HOME, SELF-CARE Condition: Stable Departure-Patient Inst. Decision time for Depature: 11:39 Referrals: [facility] [place] (PCP) Primary Care Physician ESPINOZA CERVANTES APRN (Family) Primary Care Physician Patient Instructions: Constipation, Adult (DC) Add. Discharge Instructions: All discharge instructions reviewed with patient and/or family. Voiced understanding. You need to drink plenty of fluids. It is advisable that you do MiraLAX 1 capful twice daily for the next several days and then one capful daily thereafter as needed to keep stools soft. Follow up with your Dr. in one to 2 days for recheck. You may continue for injuries. Return for worse pain, fever, vomiting, weakness, breathing problems or other concerns as needed. CLEOPATRA LAW MD Aug 17, 2019 08:27
[2019-08-17 08:28] LABS: BASOPHILS % (AUTO) 0 % (0-10); EOSINOPHILS # (AUTO) 0.1 10^3/uL (0.0-0.3); EOSINOPHILS % (AUTO) 2 % (0-10); HEMATOCRIT 35 % (35-52); HEMOGLOBIN 11.1 G/DL (11.5-16.0); LYMPHOCYTES # (AUTO) 1.6 X 10^3 (1.0-4.0); LYMPHOCYTES % (AUTO) 21 % (12-44); MEAN CORPUSCULAR HEMOGLOBIN 29 PG (25-34); MEAN CORPUSCULAR HGB CONC 32 G/DL (32-36); MEAN CORPUSCULAR VOLUME 90 FL (80-99); MEAN PLATELET VOLUME 7.9 FL (7.4-10.4); MONOCYTES # (AUTO) 0.7 X 10^3 (0.0-1.0); MONOCYTES % (AUTO) 8 % (0-12); NEUTROPHILS # (AUTO) 5.4 X 10^3 (1.8-7.8); NEUTROPHILS % (AUTO) 69 % (42-75); PLATELET COUNT 321 10^3/uL (130-400); RED CELL DISTRIBUTION WIDTH 17.4 % (10.0-14.5); WHITE BLOOD COUNT 7.8 10^3/uL (4.3-11.0)
[2019-08-17 08:49] LABS: ALANINE AMINOTRANSFERASE < 6 U/L (0-55); ALBUMIN 3.1 GM/DL (3.2-4.5); ALKALINE PHOSPHATASE 165 U/L (40-136); BILIRUBIN,TOTAL 0.3 MG/DL (0.1-1.0); BUN/CREATININE RATIO 12; CALCIUM 8.5 MG/DL (8.5-10.1); CARBON DIOXIDE 22 MMOL/L (21-32); CHLORIDE 107 MMOL/L (98-107); CREATININE SERUM 0.65 MG/DL (0.60-1.30); GFR ESTIMATED > 60; GLUCOSE 88 MG/DL (70-105); POTASSIUM 3.8 MMOL/L (3.6-5.0); SODIUM 140 MMOL/L (135-145)
--- NOTE | 2019-08-17 09:20 | Diagnostic Imaging Report ---
INDICATION: Abdominal pain The accompanying erect PA chest again shows a poorly defined area of increased density involving the left hilum that was noted on the prior exam of 08/16/2019. The overall appearance of the chest is otherwise stable. Supine and erect views of the abdomen again show that there is a fair amount of fecal material throughout the colon. The bowel gas pattern remains nonspecific. There is still no sign of a bowel obstruction. There is now prominent air-fluid level within the stomach. There is no mass or organomegaly identified. The osseous structures are intact. IMPRESSION: 1. When compared to the previous day there does not appear to have been any significant change. The bowel gas pattern remains nonspecific and there is still a considerable amount of fecal material throughout the colon. 2. There is now a prominent air-fluid level within the stomach. Dictated by: Dictated on workstation # [id number]
[2019-08-17] MEDS ORDERED: BISACODYL 10 MG SUPP (DULCOLAX) PR ONE (09:30)
[2019-08-17] MEDS ORDERED: HYDROmorphone 2 MG/ML VIAL (DILAUDID) IV ONE (10:30)
--- NOTE | 2019-08-17 11:10 | Diagnostic Imaging Report ---
EXAMINATION: CT Abdomen Pelvis without contrast. TECHNIQUE: Multiple contiguous axial images were obtained through the abdomen and pelvis without the use of intravenous contrast. All CT scans use one or more of the following dose optimizing techniques: automated exposure control, MA and/or KvP adjustment based on a patient size and exam type, or iterative reconstruction. HISTORY: Back pain. COMPARISON: 07/14/2019 FINDINGS: Left lung base mass is again seen with a moderate left pleural effusion. Cyst is present in segment VII of the liver. There is no biliary ductal dilation. Gallbladder is distended. Pancreas is normal. Spleen is normal. Adrenal glands are normal. The kidneys are normal. There is no hydronephrosis. Urinary bladder is normal. There are no dilated loops of large or small bowel. No obstruction or inflammation. No free fluid or air. No abdominal or pelvic lymphadenopathy. Aorta is normal in caliber without aneurysm. Widespread osseous metastases are unchanged. There is some mild compression fracture of L4. IMPRESSION: 1. Widespread osseous metastatic disease and left lung base mass are unchanged with a moderate left pleural effusion. 2. Unchanged mild compression fracture of L4. Dictated by: Dictated on workstation # [id number]
[2019-08-17] MEDS ORDERED: METHYLNALTREXONE 12 MG/0.6 ML (RELISTOR) VIAL SQ ONE (11:30)
[2019-08-17 12:09] VITALS: BP 127/69
== END 2019-08-17 12:09 | disposition home or self-care (01) ==
LOC: EDUNIT# 06:48 → ER 06:49
DX: K59.00 Constipation, unspecified (principal); C34.90 Malignant neoplasm of unspecified part of unspecified bronchus or lung; C79.51 Secondary malignant neoplasm of bone; J43.9 Emphysema, unspecified; G62.9 Polyneuropathy, unspecified; Z88.5 Allergy status to narcotic agent; Z77.22 Contact with and (suspected) exposure to environmental tobacco smoke (acute) (chronic); Z90.710 Acquired absence of both cervix and uterus; Z82.49 Family history of ischemic heart disease and other diseases of the circulatory system
CPT/HCPCS: 36415; 74022; 74176; 80053; 85025; 86141